=== PATIENT | female | born 1950 | race Caucasian/White ===

== ENCOUNTER 2016-07-24 12:50 | Emergency (ER) | payer MEDICARE, MEDICAID ==
[2016-07-24] MEDS ORDERED: ALBUTEROL SULFATE 2.5 MG/3 ML VIAL.NEB IH ONE (13:20)
[2016-07-24] MEDS ORDERED: ALBUTEROL SULFATE 2.5 MG/0.5 ML VIAL.NEB IH ONE (13:22)
--- NOTE | 2016-07-24 13:22 | ERNOTE ---
Dyspnea - General Presenting Symptoms: shortness of breath Time Seen by Provider: 07/24/16 13:07 Source: patient Exam Limitations: no limitations - Immun/Allergies/Home Medications Immunizations: IMMUNIZATION HX Immunizations Up to Date Yes History of Influenza Vaccine Yes Hx Pneumococcal Vaccination Yes Allergies/Adverse Reactions: Allergies codeine [Codeine] Adverse Reaction (Mild, Verified 07/24/16 13:02) SHAKY Home Medications: HOME MEDICATIONS Levothyroxine Sodium [Tirosint] 100 mcg PO DAILY 07/12/15 [Last Taken Unknown] Zolpidem Tartrate [Ambien] 10 mg PO HS 11/28/15 [Last Taken Unknown] Doxycycline Monohydrate 100 mg PO BID #20 tablet 07/24/16 [Last Taken Unknown] predniSONE [Prednisone] 3 tab PO DAILY #18 tab 07/24/16 [Last Taken Unknown] - History of Present Illness Narrative: Patient has a history of COPD (no home O2), she get exacerbations about 1-2 times per year. Three days ago she started to get more short of breath again, slightly runny nose, cough with white phlegm Date (Duration): 07/21/16 Initiating event: Denies: upper resp illness, out of meds, allergy to environment, exposure to smoke Frequency of episodes: Reports: occassional episodes Modifying Factors - (Improves): Reports: albuterol, rest Modifying Factors (Worsens): Reports: activity Review of Systems - Review of Systems Constitutional: Absent: recent illness, fever ENT: Present: nasal drainage. Absent: ear pain, sore throat Respiratory: Present: See HPI, shortness of breath, cough Cardiology: Absent: chest pain Gastrointestinal/Abdominal: Absent: nausea, vomiting, abdominal pain Genitourinary: Present: no symptoms reported Musculoskeletal: Absent: muscle pain Skin: Absent: rash Neurological: Absent: headache - Patient's Past Medical History Patient History - Medical: Cataracts, Hypothyroidism, Other Patient History - Cardiac/Respiratory: COPD Patient History - Cancer: No Hx of Cancer Patient History - Surgical Procedures: Appendectomy, Cataracts, Cholecystectomy , Colonoscopy, Hysterectomy, T & A, Other Patient History - Other: None LMP (females 10-50): Menopausal - Family History Father Family History - Medical: Family History - Cardiac/Respiratory: Myocardial Infarction Mother Family History - Medical: , Diabetes Type 2 Family History - Cardiac/Respiratory: Coronary Heart Disease, Hypertension, Myocardial Infarction Sister Family History - Medical: Diabetes Type 2 Family History - Cardiac/Respiratory: Coronary Heart Disease - Social History Living Situations: home Abuse History: No History of abuse Psych History: Hx of Depression Does anyone smoke in the home?: No Smoking Status: Never smoker Alcohol Use: none Drug Use: none - Immunizations Immunizations Up to Date: Yes Hx Pneumococcal Vaccination: Yes History of Influenza Vaccine: Yes Physical Exam - Physical Exam General Appearance: Present: wd/wn, alert, mild distress, anxious Eye Exam: Normal inspection: bilateral Ears, Nose, Throat: Present: normal ENT inspection, normal pharynx Respiratory: Present: decreased breath sounds, expiration (prolonged), wheezing - few Cardiovascular/Chest: Present: regular rate, rhythm, no murmur Gastrointestinal/Abdominal: Present: nontender, nondistended, soft Extremity Exam: Present: no edema Neurological Exam: Present: alert, oriented, normal mood/affect Skin Exam: Present: normal color, warm/dry ED Progress - Results and Orders Patient's Lab Results:: I have reviewed the patient's lab results. - Vital Signs Patient's Vital Signs:: I have reviewed the patient's vital signs. Vital Signs: Vital Signs 07/24/16 12:57 Pulse Rate 117 H Respiratory 31 H Rate Blood Pressure 161/91 O2 Sat by Pulse 97 Oximetry - X-Ray X-Ray #1 X-Ray: chest - chronic, no acute changes Interpretation: Reviewed by me - Progress/Reassessment Chief Complaint: Dyspnea Progress Note-Subjective: 07/24/16 14:45 feeling a little better after neb treatment discussed results, no signs of pneumonia, no admission criteria, will treat with steroids and antibiotics 07/24/16 14:58 discussed results again, patient states that she is ready to go home Departure Clinical Impression: COPD with acute exacerbation - Departure Disposition: Home self-care Condition: Fair Instructions: Chronic Obstructive Pulmonary Disease Exacerbation, [id number] Additional Instructions: call your doctor for follow up Referrals: Domo Graves MD [Primary Care Provider] - Prescriptions: Doxycycline Monohydrate 100 mg PO BID #20 tablet predniSONE [Prednisone] 3 tab PO DAILY #18 tab
--- OUTSIDE RECORDS SUMMARY | 2016-07-24 13:35 | XMS REPORT | Continuity of Care Document ---
:1950 Author Organization [facility] ([facility]) Address [address] [place] [address] Phone [phone] Care Team Providers Name Role Phone David Sales Primary Care Provider [phone] Source Comments This disclosure is being made pursuant to the Care Everywhere program, applicable federal and state laws, and may not contain all informaitonavailable regarding this patient.[facility] ([facility]) Active Allergies and Adverse Reactions Not on File Current Medications Not on file Active Problems Problem Noted Date Cough 05/10/2007 Empyema without mention of fistula 04/01/2006 Social History Tobacco Use Types Packs/Day Years Used Date Never Assessed Last Filed Vital Signs Vital Sign Reading Time Taken Blood Pressure 143/78 05/10/2007 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 Pulse 83 05/10/2007 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 Temperature 36 C (96.8 F) 05/10/2007 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 Respiratory Rate 20 05/10/2007 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 Height 1.58 m (5' 2.2") 08/26/2003 11:08 AM CDT Weight 58.8 kg (129 lb 10.1 oz) 04/10/2006 1:26 PM GROUND INSTRUCTOR BASIC Body Mass Index 23.55 04/10/2006 1:26 PM GROUND INSTRUCTOR [employer]IC Oxygen Saturation - - Plan of Care Health Maintenance Due Date Last Done Comments HCV Screening 1950 Hepatitis B Vaccine (1 of 3 - Primary Series) 1950 Tdap Vaccine 1962 Lipid Disorder Screening 1969 Td Vaccine 1969 Cervical Cancer Screening 1981 Mammogram 1991 Colonoscopy 04/24/2001 Zoster Vaccine 2011 Influenza Vaccine: Seasonal (#1) 12/04/2015 Osteoporosis Screening (DXA Bone Density) 2016 Pneumococcal Vaccine (1 of 2 - PCV13) 2016 Results from Last 3 Months Not on file
[2016-07-24 13:56] LABS: Hematocrit 47.1 % (37.0-47.0); Hemoglobin 14.9 gm/dL (12.5-16.0); Mean Cell Volume 89.5 fl (78-100); Mean Corpuscular Hemoglobin 28.3 pg (27-31); Mean Corpuscular Hgb Conc 31.6 g/dl (32-36); Mean Platelet Volume 10.6 fl (6.0-9.5); Platelet Count 255 K/mm3 (150-450); Red Blood Count 5.26 M/mm3 (4.2-5.4); Red Cell Distribution Width 13.6 % (11.5-14.0)
[2016-07-24 14:09] LABS: Anion Gap 15.3 mmol/L (6.8-13.8); BUN/Creatinine Ratio 19.5 (9.0-21.6); Bilirubin, Total 0.6 mg/dL (0.0-1.1); Calcium * 9.3 mg/dL (7.9-10.9); Carbon Dioxide 28.7 mmol/L (24-32.6); Total Protein 7.3 gm/dL (6.2-8.2)
[2016-07-24 14:28] VITALS: BP 133/85
[2016-07-24] MEDS ORDERED: predniSONE 20 MG TABLET PO ONE (14:41)
[2016-07-24] MEDS ORDERED: DOXYCYCLINE HYCLATE 100 MG TABLET PO ONE (14:43)
[2016-07-24] MEDS ORDERED: predniSONE 20 MG TABLET ONE (14:45)
[2016-07-24] MEDS ORDERED: DOXYCYCLINE HYCLATE 100 MG TABLET ONE (14:45)
== END 2016-07-24 15:05 | disposition home or self-care (01) ==
LOC: ER 12:50
DX: J44.1 Chronic obstructive pulmonary disease with (acute) exacerbation (principal); E03.9 Hypothyroidism, unspecified

== ENCOUNTER 2016-09-16 18:32 | Emergency (ER) | payer MEDICARE, MEDICAID ==
[2016-09-16 19:54] VITALS: BP 151/79
[2016-09-16] MEDS ORDERED: ALBUTEROL SULFATE/IPRATROPIUM 3 ML NEBU IH ONE ×2 (20:36→21:15)
[2016-09-16 20:40] LABS: Hematocrit 46.4 % (37.0-47.0); Mean Cell Volume 86.6 fl (78-100); Mean Corpuscular Hgb Conc 32.3 g/dl (32-36); Mean Platelet Volume 10.8 fl (6.0-9.5); Neutrophil # 7.4 K/mm3 (1.3-6.0); Neutrophil % 72.3 % (42-75.0); Platelet Count 262 K/mm3 (150-450); Red Blood Count 5.36 M/mm3 (4.2-5.4); Red Cell Distribution Width 12.7 % (11.5-14.0); White Blood Count 10.3 K/mm3 (4.0-10.5)
[2016-09-16 20:54] LABS: Albumin * 3.3 gm/dl (3.4-5.0); Anion Gap 11.9 mmol/L (6.8-13.8); BUN/Creatinine Ratio 26.5 (9.0-21.6); Bilirubin, Total 0.5 mg/dL (0.0-1.1); Ca. Corrected For Albumin 9.4 mg/dL (8.4-10.2); Calcium * 9.2 mg/dL (7.9-10.9); Carbon Dioxide 31.2 mmol/L (24-32.6); Potassium 4.1 mmol/L (3.4-4.6); Total Protein 6.6 gm/dL (6.2-8.2)
--- OUTSIDE RECORDS SUMMARY | 2016-09-16 20:57 | XMS REPORT | Continuity of Care Document ---
:1950 Author Organization [facility] ([facility]) Address [address] [place] [address] Phone [phone] Care Team Providers Name Role Phone David Sales Primary Care Provider [phone] Source Comments This disclosure is being made pursuant to the Care Everywhere program, applicable federal and state laws, and may not contain all informaitonavailable regarding this patient.[facility] ([facility]) Active Allergies and Adverse Reactions Not on File Current Medications Not on file Active Problems Problem Noted Date Cough 05/10/2007 Empyema without mention of fistula 04/01/2006 Social History Tobacco Use Types Packs/Day Years Used Date Never Assessed Last Filed Vital Signs Vital Sign Reading Time Taken Blood Pressure 143/78 05/10/2007 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
--- NOTE | 2016-09-16 21:00 | ERNOTE ---
Lower Extremity HPI - Narrative Date of Service: 09/16/16 - General Lower Extremities Pain: knee: bilateral Time Seen by Provider: 09/16/16 20:26 Source: patient Exam Limitations: no limitations - Immun/Allergies/Home Medications Immunizations: IMMUNIZATION HX Immunizations Up to Date Yes History of Influenza Vaccine Yes Hx Pneumococcal Vaccination Yes Allergies/Adverse Reactions: Allergies Allergy/AdvReac Type Severity Reaction Status Date / Time codeine [Codeine] AdvReac Mild SHAKY Verified 07/24/16 13:02 Home Medications: HOME MEDICATIONS Levothyroxine Sodium [Tirosint] 100 mcg PO DAILY 07/12/15 [Last Taken Unknown] Zolpidem Tartrate [Ambien] 10 mg PO HS 11/28/15 [Last Taken Unknown] predniSONE [Prednisone] 3 tab PO DAILY #18 tab 07/24/16 [Last Taken Unknown] Albuterol Sulfate [Albuterol Sulfate 2.5 MG/3 ML] 2.5 mg IH Q4H 09/16/16 [Last Taken Unknown] Albuterol Sulfate [Proventil Hfa] 6.7 gm IH QAM 09/16/16 [Last Taken Unknown] predniSONE [Prednisone] 3 tab PO DAILY #9 tab 09/16/16 [Last Taken Unknown] - History of Present Illness Narrative: Pt. comes in with c/o B knee pain, SOB, increase cough, and B leg cramping since she received knee injections from Dr Shanita Sandy a week ago. Pt. denies any fevers, NVD, but has had chills. Pt. denies any prehospital treatment or alleviating factors but does state that movement and ambulation exacerbate the symptoms. Review of Systems - Review of Systems Constitutional: Present: chills, weakness, fatigue, malaise. Absent: fever EYE: Present: no symptoms reported ENT: Present: no symptoms reported Respiratory: Present: shortness of breath, cough, wheezing Cardiology: Present: no symptoms reported. Absent: chest pain, palpitations, edema Gastrointestinal/Abdominal: Present: no symptoms reported. Absent: nausea, vomiting, diarrhea Genitourinary: Present: no symptoms reported Musculoskeletal: Present: muscle pain - B legs from knees to toes anterior, joint pain - B knee. Absent: back pain Skin: Present: no symptoms reported. Absent: rash, change in hair/nails Neurological: Present: no symptoms reported. Absent: headache, dizziness/light- headedness, numbness, tingling All Other Systems: All systems neg except as marked - Patient's Past Medical History Patient History - Medical: Cataracts, Hypothyroidism Patient History - Cardiac/Respiratory: COPD Patient History - Cancer: No Hx of Cancer Patient History - Surgical Procedures: Appendectomy, Cataracts, Cholecystectomy , Colonoscopy, Hysterectomy, T & A, Other Patient History - Other: None - Family History Father Family History - Medical: Family History - Cardiac/Respiratory: Myocardial Infarction Mother Family History - Medical: , Diabetes Type 2 Family History - Cardiac/Respiratory: Coronary Heart Disease, Hypertension, Myocardial Infarction Sister Family History - Medical: Diabetes Type 2 Family History - Cardiac/Respiratory: Coronary Heart Disease - Social History Living Situations: home Abuse History: No History of abuse Psych History: Hx of Depression Does anyone smoke in the home?: No Smoking Status: Current some day smoker Have you smoked in the past 12 months: Yes Do you dip or chew tobacco: No Alcohol Use: none Drug Use: none - Immunizations Immunizations Up to Date: Yes Hx Pneumococcal Vaccination: Yes History of Influenza Vaccine: Yes Physical Exam - Physical Exam General Appearance: Present: wd/wn, alert, no apparent distress Eye Exam: Normal inspection: bilateral, PERRL: bilateral, EOMI: bilateral Ears, Nose, Throat: Present: normal ENT inspection, normal pharynx Neck: Present: normal inspection, nontender. Absent: lymphadenopathy (R), lymphadenopathy (L) Respiratory: Present: no respiratory distress, no accessory muscle use, decreased breath sounds, wheezing Cardiovascular/Chest: Present: regular rate, rhythm, no murmur, normal peripheral pulses Gastrointestinal/Abdominal: Present: normal bowel sounds, nontender, nondistended, soft, no organomegaly Back Exam: Present: normal inspection Extremity Exam: Present: joint swelling, other - B calf pain. Absent: calf tenderness Neurological Exam: Present: alert, oriented, normal mood/affect, no motor/ sensory deficits Skin Exam: Present: normal color, warm/dry. Absent: pallor, skin rash ED Progress - Date and Time Seen: Date and Time: 09/16/16 22:26 Do not feel that pt. is having acute COPD exacerbation so will treat this with prednisone which will also treat the acute inflammation from knee arthritis - Results and Orders Patient's Lab Results:: I have reviewed the patient's lab results. - Vital Signs Patient's Vital Signs:: I have reviewed the patient's vital signs. Vital Signs: Vital Signs 09/16/16 09/16/16 18:58 19:53 Pulse Rate 131 H Respiratory 20 22 H Rate Blood Pressure 151/79 O2 Sat by Pulse 95 Oximetry - X-Ray X-Ray #1 X-Ray: chest Interpretation: Interp. by me X-ray Comments: RLL cystic cavity relatively unchanged from previous chronic RLL scaring and other changes noted. X-Ray #2 X-Ray: knee Interpretation: Interp. by me X-ray Comments: L knee with chronic arthritic changes no acute X-Ray #3 X-Ray: knee Interpretation: Interp. by me X-ray Comments: R knee with chronic arthritic changes and possible attenuation differences noted on previous xray as well, no acute - Progress/Reassessment Chief Complaint: Lower Extremity Pain/ Injury Progress:: Unchanged Departure Clinical Impression: COPD with acute exacerbation Osteoarthritis Qualifiers: Osteoarthritis location: knee Osteoarthritis type: primary Laterality: bilateral Qualified Code(s): M17.0 - Bilateral primary osteoarthritis of knee - Departure Disposition: Home self-care Condition: Good Instructions: Chronic Obstructive Pulmonary Disease, [id number], Osteoarthritis Additional Instructions: Please follow up with primary provider in 2-3 days. Referrals: Domo Graves MD [Primary Care Provider] - Prescriptions: predniSONE [Prednisone] 3 tab PO DAILY #9 tab
[2016-09-16 21:16] LABS: Troponin I Less than 0.017 ng/ml (0.00-0.10)
[2016-09-16 21:19] LABS: BNP * 86 pg/mL (5-325)
== END 2016-09-16 22:31 | disposition home or self-care (01) ==
LOC: ER 18:32
DX: J44.1 Chronic obstructive pulmonary disease with (acute) exacerbation (principal); Z72.0 Tobacco use; M17.0 Bilateral primary osteoarthritis of knee; E03.9 Hypothyroidism, unspecified

== ENCOUNTER 2016-12-12 17:33 | Emergency (ER) | payer MEDICAID, MEDICARE, OTHER ==
--- NOTE | 2016-12-12 18:04 | ERNOTE ---
Lower Extremity HPI - General Lower Extremities Pain: leg: bilateral Time Seen by Provider: 12/12/16 17:42 Source: patient Exam Limitations: no limitations - Immun/Allergies/Home Medications Immunizations: IMMUNIZATION HX Immunizations Up to Date Yes History of Influenza Vaccine Yes Hx Pneumococcal Vaccination Yes Allergies/Adverse Reactions: Allergies Allergy/AdvReac Type Severity Reaction Status Date / Time codeine [Codeine] AdvReac Mild SHAKY Verified 12/12/16 17:40 Home Medications: HOME MEDICATIONS Levothyroxine Sodium [Tirosint] 100 mcg PO DAILY 07/12/15 [Last Taken Unknown] Zolpidem Tartrate [Ambien] 10 mg PO HS 11/28/15 [Last Taken Unknown] Albuterol Sulfate [Albuterol Sulfate 2.5 MG/3 ML] 2.5 mg IH Q4H 09/16/16 [Last Taken Unknown] Albuterol Sulfate [Proventil Hfa] 6.7 gm IH QAM 09/16/16 [Last Taken Unknown] - History of Present Illness Narrative: Patient is here for bilateral leg pain that she has had for many months. She has seen her doctor for it and received injections and pain medications with little relieve. She would like answers, denies any injuries, was seen in the ER in September2016, had Xrays and labs done which showed no significant abnormality. She has not seen any specialist, just her family doctor. The pain is in both legs mainly from the knee down at times extending up the thigh, no sensory deficit, no muscle weakness Review of Systems - Review of Systems Constitutional: Absent: recent illness, fever, malaise ENT: Absent: nose congestion, sore throat Respiratory: Absent: shortness of breath Cardiology: Absent: chest pain Gastrointestinal/Abdominal: Absent: nausea, vomiting, abdominal pain Genitourinary: Present: no symptoms reported Musculoskeletal: Present: See HPI. Absent: back pain, neck pain Skin: Absent: rash Neurological: Present: See HPI. Absent: weakness, numbness - Patient's Past Medical History Patient History - Medical: Cataracts, Hypothyroidism Patient History - Cardiac/Respiratory: COPD Patient History - Cancer: No Hx of Cancer Patient History - Surgical Procedures: Appendectomy, Cataracts, Cholecystectomy , Colonoscopy, Hysterectomy, T & A, Other Patient History - Other: None - Family History Father Family History - Medical: Family History - Cardiac/Respiratory: Myocardial Infarction Mother Family History - Medical: , Diabetes Type 2 Family History - Cardiac/Respiratory: Coronary Heart Disease, Hypertension, Myocardial Infarction Sister Family History - Medical: Diabetes Type 2 Family History - Cardiac/Respiratory: Coronary Heart Disease - Social History Living Situations: home Abuse History: No History of abuse Psych History: Hx of Depression Does anyone smoke in the home?: No Alcohol Use: none Drug Use: none - Immunizations Immunizations Up to Date: Yes Hx Pneumococcal Vaccination: Yes History of Influenza Vaccine: Yes Physical Exam - Physical Exam General Appearance: Present: wd/wn, alert, no apparent distress Respiratory: Present: no respiratory distress, no accessory muscle use, lungs clear, decreased breath sounds Cardiovascular/Chest: Present: regular rate, rhythm, no murmur Back Exam: Present: normal inspection, no CVA tenderness, no vertebral tenderness Extremity Exam: Present: normal inspection, non-tender, normal range of motion, no edema Neurological Exam: Present: alert, oriented, normal mood/affect, no motor/ sensory deficits DTR: N=norm/NB=norm/brisk/A=abs/DD=dull/dimin/HC=hyperactive: Knee (R): Normal/ Brisk, Knee (L): Normal/Brisk, Ankle (R): Normal, Ankle (L): Normal Skin Exam: Present: normal color, warm/dry ED Progress - Vital Signs Patient's Vital Signs:: I have reviewed the patient's vital signs. Vital Signs: Vital Signs 12/12/16 17:37 Temperature 36.7 C Pulse Rate 95 Respiratory 12 Rate Blood Pressure 153/85 O2 Sat by Pulse 100 Oximetry - Progress/Reassessment Chief Complaint: Lower Extremity Pain/ Injury Progress Note-Subjective: 12/12/16 18:02 discussed possibly trying neurontin, patient's daughter had a reaction to it and is strongly advising her mother not to take it, discussed further work up, possibly seeing neurology Departure Clinical Impression: Leg pain, bilateral - Departure Disposition: Home self-care Condition: Good Additional Instructions: the pain in your legs might be related to nerve damage in your legs and you might need further testing, call the neurology office tomorrow, if you need a referral call you doctor for a referral Referrals: Domo Graves MD [Primary Care Provider] - Barbra Mary MD [Staff Physician] -
[2016-12-13 16:32] VITALS: BP 153/85
== END 2016-12-12 18:07 | disposition home or self-care (01) ==
LOC: ER 17:33
DX: M79.605 Pain in left leg (principal); M79.604 Pain in right leg; E03.9 Hypothyroidism, unspecified; J44.9 Chronic obstructive pulmonary disease, unspecified

== ENCOUNTER 2017-04-14 18:52 | Inpatient (IN) | payer MEDICARE, MEDICAID ==
[2017-04-14] MEDS ORDERED: ALBUTEROL SULFATE 2.5 MG/0.5 ML VIAL.NEB IH ONE ×3 (19:10→19:12)
[2017-04-14] MEDS ORDERED: METHYLPREDNISOLONE SOD SUCC/PF 125 MG/2 ML VIAL IV ONE (19:12)
--- NOTE | 2017-04-14 19:21 | ERNOTE ---
Dyspnea - General Presenting Symptoms: shortness of breath Time Seen by Provider: 04/14/17 19:06 Source: patient Exam Limitations: no limitations - Immun/Allergies/Home Medications Immunizations: IMMUNIZATION HX Immunizations Up to Date Yes History of Influenza Vaccine No Hx Pneumococcal Vaccination Yes Allergies/Adverse Reactions: Allergies codeine [Codeine] Adverse Reaction (Mild, Verified 04/14/17 19:12) SHAKY Home Medications: HOME MEDICATIONS Levothyroxine Sodium [Tirosint] 175 mcg PO DAILY 07/12/15 [Last Taken Unknown] Zolpidem Tartrate [Ambien] 10 mg PO HS 11/28/15 [Last Taken Unknown] Albuterol Sulfate [Proventil Hfa] 6.7 gm IH QAM 09/16/16 [Last Taken Unknown] Albuterol Sulfate/Ipratropium [Duoneb 2.5-0.5MG/3ML Soln] 3 ml IH QID 04/14/17 [ Last Taken Unknown] - History of Present Illness Narrative: Patient has a history or COPD and pneumonia, is not on home O2. Over the last three days she has had increasing shortness of breath and productive cough. She has been staying at her daughter's house and has been exposed to smoke there. She forgot to take her nebulizer, last breathing treatment two days ago. She denies fever, no chest pain Treatment COURIER: none Initiating event: Reports: exposure to smoke, other Frequency of episodes: Reports: occassional episodes Modifying Factors - (Improves): Reports: nothing Modifying Factors (Worsens): Reports: activity Associated Symptoms-Dyspnea: Reports: cough, wheezing. Denies: fever/chills, sweating, chest pain/discomfort, dizziness, lightheadedness Prior Treatment: Reports: previous episodes. Denies: recently seen, currently on antibiotics Review of Systems - Review of Systems Constitutional: Absent: recent illness, fever ENT: Absent: nose congestion, sore throat Respiratory: Present: shortness of breath, cough Cardiology: Absent: chest pain Gastrointestinal/Abdominal: Absent: nausea, abdominal pain Genitourinary: Present: no symptoms reported Musculoskeletal: Present: no symptoms reported Skin: Absent: rash Neurological: Absent: headache - Patient's Past Medical History Patient History - Medical: Cataracts, Hypothyroidism Patient History - Cardiac/Respiratory: COPD Patient History - Cancer: No Hx of Cancer Patient History - Surgical Procedures: Appendectomy, Cataracts, Cholecystectomy , Colonoscopy, Hysterectomy, T & A, Other Patient History - Other: None - Family History Father Family History - Medical: Family History - Cardiac/Respiratory: Myocardial Infarction Mother Family History - Medical: , Diabetes Type 2 Family History - Cardiac/Respiratory: Coronary Heart Disease, Hypertension, Myocardial Infarction Sister Family History - Medical: Diabetes Type 2 Family History - Cardiac/Respiratory: Coronary Heart Disease - Social History Living Situations: alone Abuse History: No History of abuse Psych History: Hx of Depression Smoking Status: Former smoker Have you smoked in the past 12 months: No Do you dip or chew tobacco: No Alcohol Use: none Drug Use: none - Immunizations Immunizations Up to Date: Yes Hx Pneumococcal Vaccination: Yes History of Influenza Vaccine: No Physical Exam - Physical Exam General Appearance: Present: wd/wn, alert, moderate distress Head Exam: Present: normal inspection Eye Exam: Normal inspection: bilateral, PERRL: bilateral Ears, Nose, Throat: Present: normal pharynx Respiratory: Present: decreased breath sounds, wheezing Cardiovascular/Chest: Present: tachycardia Gastrointestinal/Abdominal: Present: nontender, nondistended, soft Extremity Exam: Present: no edema Neurological Exam: Present: alert, oriented, normal mood/affect Skin Exam: Present: normal color, warm/dry ED Progress - Results and Orders Patient's Lab Results:: I have reviewed the patient's lab results. - Vital Signs Patient's Vital Signs:: I have reviewed the patient's vital signs. Vital Signs: Vital Signs 04/14/17 18:59 Temperature 37.4 C Pulse Rate 140 H Respiratory 38 H Rate Blood Pressure 172/82 O2 Sat by Pulse 80 L Oximetry - EKG EKG: NSR - sinustachycardia, nonspecific ST T wave changes EKG read: Interp. by me - X-Ray X-Ray #1 X-Ray: chest - hyperinflation, right sided emphyema increased fluid level compared to march 2017 Interpretation: Interp. by me - Progress/Reassessment Chief Complaint: Dyspnea Progress Note-Subjective: 04/14/17 19:30 patient seems more comfortable after breathing treatment, decreased RR patient states that she doesn't feel much better yet 04/14/17 20:33 discussed test results with patient and family, offered admission, patient agreed 04/14/17 20:38 discussed with Jeyson (NRP) accepted patient for admission to the hospital Departure Clinical Impression: COPD with acute exacerbation Lung abscess Qualifiers: Pulmonary abscess pneumonia presence: without pneumonia Laterality: right Lung location: lower lobe of lung Qualified Code(s): J85.2 - Abscess of lung without pneumonia - Departure Disposition: [facility] Condition: Stable
[2017-04-14] MEDS ORDERED: MORPHINE SULFATE 2 MG/ML DISP.SYRIN ONE (19:26)
[2017-04-14] MEDS ORDERED: MORPHINE SULFATE 2 MG/ML DISP.SYRIN IV ONE (19:26)
[2017-04-14] MEDS ORDERED: METHYLPREDNISOLONE SOD SUCC/PF 125 MG/2 ML VIAL ONE (19:27)
[2017-04-14 19:31] LABS: Hematocrit 43.3 % (37.0-47.0); Hemoglobin 14.3 gm/dL (12.5-16.0); Mean Cell Volume 88.2 fl (78-100); Mean Corpuscular Hemoglobin 29.1 pg (27-31); Mean Platelet Volume 10.8 fl (6.0-9.5); Platelet Count 427 K/mm3 (150-450); Red Blood Count 4.91 M/mm3 (4.2-5.4); Red Cell Distribution Width 13.1 % (11.5-14.0); White Blood Count 11.4 K/mm3 (4.0-10.5)
[2017-04-14 19:46] LABS: Total Cells Counted 100
[2017-04-14 19:57] LABS: ALT 66 U/L (19-67); AST 42 U/L (0-48); Alkaline Phosphatase * 144 U/L (50-170); Anion Gap 14.6 mmol/L (6.8-13.8); BNP * 302 pg/mL (5-325); BUN/Creatinine Ratio 26.5 (9.0-21.6); Bilirubin, Total 0.5 mg/dL (0.0-1.1); Blood Urea Nitrogen 26 mg/dL (3-23); Ca. Corrected For Albumin 9.7 mg/dL (8.4-10.2); Calcium * 9.2 mg/dL (7.9-10.9); Carbon Dioxide 28.3 mmol/L (24-32.6); Chloride 99 mmol/L (97-106); Glucose * 147 mg/dL (70-110); Potassium 3.9 mmol/L (3.4-4.6); Sodium 138 mmol/L (132-142); Total Protein 7.8 gm/dL (6.2-8.2); Troponin I Less than 0.017 ng/ml (0.00-0.10)
[2017-04-14 20:20] LABS: Band 6 % (0-2.0); Immature Granulocyte 1 (0-1); Lymphocyte 6 % (20-51); Monocyte 18 % (0-9); Neutrophil 69 % (42-75); Neutrophil # 7.9 K/mm3 (1.3-6.0)
[2017-04-14 20:22] LABS: Platelet Estimate Normal (NORMAL); RBC Morphology Normal (NORMAL)
[2017-04-14] MEDS ORDERED: LEVOFLOXACIN IN DEXTROSE 5 % 750 MG/150 ML BAG IV ONE (20:45)
[2017-04-14] MEDS ORDERED: CLINDAMYCIN HCL 150 MG CAPSULE PO SCH (21:00)
[2017-04-14] MEDS ORDERED: ALBUTEROL SULFATE 2.5 MG/0.5 ML VIAL.NEB IH PRN (21:00)
[2017-04-14] MEDS: LEVOFLOXACIN IN DEXTROSE 5 % 750 MG/150 ML BAG IV SCH (21:11)
[2017-04-14] MEDS ORDERED: FLU VACC QS2017-18(6MOS UP)/PF 60 MCG/0.5 ML SYRINGE IM ONE (21:30)
[2017-04-14] MEDS ORDERED: ALBUTEROL SULFATE/IPRATROPIUM 3 ML NEBU IH ONE (21:47)
--- NOTE | 2017-04-14 22:08 | HP ---
Chief Complaint - Chief Complaint Date of Service: 04/14/17 Time of Service: 22:07 History of Present Illness: 66 years old female adm to the hospital with reports of shortness of breath and dizziness. pt stated for past 3 days she has a non-productive cough, chills and dizziness. she denies fever, chest pain, palpitation or wheezing. She had used her nebulizer treatments without getting any relief. She noticed her s/s while she was visiting her daughter and was exposed to pets and second hand smoking.She was last seen 6 months ago by template maker in [place], at the time she had no lung abscess. She have had recurrent lung abscess over the years. In ER CXR: Unchanged mildly thick walled bulla within the right lung base , emphysema. In ER lactic acid 2.0, WBC 11.4, Initiated IV antbx Levaquin and clindamycin, Solu-medrol and supplemented oxygen. plan of care discussed with pt , she verbalized understanding and agree. - Patient's Past Medical History Patient History - Medical: Cataracts, Hypothyroidism, Other - insomnia, crohns disease, Patient History - Cardiac/Respiratory: COPD, CVA/Stroke, Pneumonia, Other - recurrent Right lung abscess Patient History - Cancer: No Hx of Cancer Patient History - Surgical Procedures: Appendectomy, Cataracts, Cholecystectomy , Colonoscopy, Hysterectomy, T & A Patient History - Other: None LMP (females 10-50): Menopausal - Family History Father Family History - Medical: Family History - Cardiac/Respiratory: Coronary Heart Disease, Myocardial Infarction Family History - Cancer: No pertinent family hx Mother Family History - Medical: Family History - Cardiac/Respiratory: Coronary Heart Disease, Hypertension, Myocardial Infarction Family History - Cancer: No pertinent family hx Sister Family History - Medical: No pertinent hx Family History - Cardiac/Respiratory: Coronary Heart Disease Family History - Cancer: No pertinent family hx - Social History Living Situations: alone Abuse History: No History of abuse Psych History: Hx of Depression Smoking Status: Former smoker Have you smoked in the past 12 months: No Do you dip or chew tobacco: No Alcohol Use: none Drug Use: none - Immunizations Immunizations Up to Date: Yes Hx Pneumococcal Vaccination: Yes History of Influenza Vaccine: No Review Of Systems (GEN) - Review of Systems Generalized/Overall Review: Present: No Symptoms Reported EENTM: Present: No Symptoms Reported Respiratory: Present: Cough, Shortness of Breath Cardiac: Present: No Symptoms Reported Abdominal: Present: No Symptoms Reported Genitourinary: Present: No Symptoms Reported Musculoskeletal: Present: Joint Pain - Anival knees Neurological: Present: Parasthesia, Weakness Skin: Present: No Symptoms Reported Endocrine: Present: No Symptoms Reported Immunizations: IMMUNIZATION HX Immunizations Up to Date Yes History of Influenza Vaccine No Hx Pneumococcal Vaccination Yes Allergies/Adverse Reactions: Allergies Allergy/AdvReac Type Severity Reaction Status Date / Time codeine [Codeine] AdvReac Mild SHAKY Verified 04/14/17 19:12 Home Medications: HOME MEDICATIONS Levothyroxine Sodium [Tirosint] 175 mcg PO DAILY 07/12/15 [Last Taken Unknown] Zolpidem Tartrate [Ambien] 10 mg PO HS 11/28/15 [Last Taken Unknown] Albuterol Sulfate [Proventil Hfa] 6.7 gm IH QAM 09/16/16 [Last Taken Unknown] Albuterol Sulfate/Ipratropium [Duoneb 2.5-0.5MG/3ML Soln] 3 ml IH QID 04/14/17 [ Last Taken Unknown] Exam - Exam Vital Signs: Vital Signs - Last Taken Temp 36.7 C 04/14/17 21:24 Pulse 114 H 04/14/17 21:24 Resp 26 H 04/14/17 21:24 BP 147/50 04/14/17 21:24 Pulse Ox 90 04/14/17 21:24 Constitutional: Present: Alert, Oriented x3, Cooperative, Mild distress, Middle aged ENT Exam: Present: hearing grossly normal Eye Exam: bilateral eye: normal inspection Neck: Present: full range of motion Back Exam: Present: normal inspection, no CVA tenderness Breasts: Present: Exam deferred Respiratory: Present: chest non-tender, no accessory muscle use, decreased breath sounds, rhonchi, wheezing Cardiovascular/Chest: Present: normal peripheral pulses, no chest tenderness, no edema, tachycardia Peripheral Pulses: dorsalis-pedis (R): 3+, dorsalis-pedis (L): 3+ Abdomen: Present: Normal bowel sounds, soft, nontender, nondistended, no rebound tenderness Extremity: Present: normal range of motion, normal inspection, no pedal edema, no calf tenderness, normal capillary refill Skin Exam: Present: warm/dry Neurologic: Present: alert, oriented x 3 Appearance: Present: appropriate appearance, appropriate insight Eye contact: Present: cooperative, good eye contact Thoughts: Present: normal thought pattern, no apparent hallucination Diagnostic Studies: Laboratory Results WBC 11.4 K/mm3 (4.0-10.5) H 04/14/17 19:25 RBC 4.91 M/mm3 (4.2-5.4) 04/14/17 19:25 Hgb 14.3 gm/dL (12.5-16.0) 04/14/17 19:25 Hct 43.3 % (37.0-47.0) 04/14/17 19:25 MCV 88.2 fl (78-100) 04/14/17 19:25 MCH 29.1 pg (27-31) 04/14/17 19:25 MCHC 33.0 g/dl (32-36) 04/14/17 19:25 RDW 13.1 % (11.5-14.0) 04/14/17 19:25 Plt Count 427 K/mm3 (150-450) 04/14/17 19:25 MPV 10.8 fl (6.0-9.5) H 04/14/17 19:25 Neutrophils % (Manual) 69 % (42-75) 04/14/17 19:25 Band Neuts % (Manual) 6 % (0-2.0) H 04/14/17 19:25 Lymphocytes % (Manual) 6 % (20-51) L 04/14/17 19:25 Monocytes % (Manual) 18 % (0-9) H 04/14/17 19:25 Immature Granulocytes 1 (0-1) 04/14/17 19:25 Neutrophils # (Manual) 7.9 K/mm3 (1.3-6.0) H 04/14/17 19:25 Lymphocytes # (Manual) 0.7 k/mm3 (1.5-3.5) L 04/14/17 19:25 Monocytes # (Manual) 2.1 k/mm3 (0.0-1.0) H 04/14/17 19:25 Toxic Vacuolation 3+ 04/14/17 19:25 Platelet Estimate Normal (NORMAL) 04/14/17 19:25 RBC Morphology Normal (NORMAL) 04/14/17 19:25 Sodium 138 mmol/L (132-142) 04/14/17 19:25 Plasma Sodium 139 mmol/L (130-142) 04/14/17 19:25 Potassium 3.9 mmol/L (3.4-4.6) 04/14/17 19:25 Chloride 99 mmol/L (97-106) 04/14/17 19:25 Carbon Dioxide 28.3 mmol/L (24-32.6) 04/14/17 19:25 Anion Gap 14.6 mmol/L (6.8-13.8) H 04/14/17 19:25 BUN 26 mg/dL (3-23) H 04/14/17 19:25 Creatinine 0.98 mg/dL (0.4-1.4) 04/14/17 19:25 Est GFR (Non-Af Amer) 61 mL/min (60-130) 04/14/17 19:25 BUN/Creatinine Ratio 26.5 (9.0-21.6) H 04/14/17 19:25 Random Glucose 147 mg/dL (70-110) H 04/14/17 19:25 Lactic Acid, Venous 2.0 mmol/L (0.4-1.9) H 04/14/17 19:25 Calcium 9.2 mg/dL (7.9-10.9) 04/14/17 19:25 Calcium Adj for Albumin 9.7 mg/dL (8.4-10.2) 04/14/17 19:25 Total Bilirubin 0.5 mg/dL (0.0-1.1) 04/14/17 19:25 AST 42 U/L (0-48) 04/14/17 19:25 ALT 66 U/L (19-67) 04/14/17 19:25 Alkaline Phosphatase 144 U/L (50-170) 04/14/17 19:25 Troponin I Less than 0.017 ng/ml (0.00-0.10) 04/14/17 19:25 B-Natriuretic Peptide 302 pg/mL (5-325) 04/14/17 19:25 Total Protein 7.8 gm/dL (6.2-8.2) 04/14/17 19:25 Albumin 3.0 gm/dl (3.4-5.0) L 04/14/17 19:25 Influenza Type A Ag Negative (NEGATIVE) 04/14/17 19:15 Influenza Type B Ag Negative (NEGATIVE) 04/14/17 19:15 CXR: Unchanged mildly thick walled bulla within the right lung base. emphysema Assessment/Plan - Narrative Narrative: pneumonia with lung abscess- Seen on CXR: Unchanged mildly thick walled bulla within the right lung base. emphysema pt follow up with template maker in [place] pt had recurrent lung abscess continue with Levaquin and clindamycin sputum and blood culture pending Supplemented oxygen Duoneb schedule On adm Procalcitonin negative and lactic acid 2.0--->2.4 COPD Plan same as #1 Hypothyriodism Resume home medications Hypertension- stable May resume home medications Monitor VS Chronic Bilateral leg pain pt was given steroid injections to both knees over a year ago without much relieve. Plans for follow up with orth or PCP upon discharge. Hypoxic- resolved On adm spo2 88%----> 93% on room air Code status: Full GI ppx: protonix VTE ppx: SCD and ambulate Time 40 minutes and case discussed with Dr Brar. - Assessment/Plan (1) Lung abscess Problem: Chronic Qualifiers: Pulmonary abscess pneumonia presence: without pneumonia Laterality: right Lung location: lower lobe of lung Qualified Code(s): J85.2 - Abscess of lung without pneumonia (2) Acute exacerbation of chronic obstructive pulmonary disease (COPD) Problem: Acute (3) Lactic acidosis Problem: Acute (4) Abscess of lung with pneumonia Problem: Chronic Qualifiers: (5) Leg pain, bilateral Problem: Acute (6) Hypertension Problem: Chronic Qualifiers: Hypertension type: essential hypertension Qualified Code(s): I10 - Essential (primary) hypertension (7) Hypothyroidism Problem: Chronic Qualifiers: Hypothyroidism type: acquired Qualified Code(s): E03.9 - Hypothyroidism, unspecified (8) Insomnia Problem: Chronic
[2017-04-14] MEDS: CLINDAMYCIN PHOSPHATE 300 MG in DEXTROSE 5 % IN WATER 50 ML IV SCH ×2 (22:31)
[2017-04-14] MEDS: ZOLPIDEM TARTRATE 10 MG TABLET PO SCH (23:19)
[2017-04-15] MEDS: METHYLPREDNISOLONE SOD SUCC 60 MG in WATER FOR INJ.,BACTERIOSTATIC 0 ML IV SCH ×3 (01:16→13:47)
[2017-04-15] MEDS: NORMAL SALINE 1,000 ML IV PRN ×3 (01:16→18:43)
[2017-04-15] MEDS: PANTOPRAZOLE SODIUM 40 MG TABLET.EC PO SCH ×2 (01:16→06:35)
[2017-04-15] MEDS: CLINDAMYCIN PHOSPHATE 300 MG in DEXTROSE 5 % IN WATER 50 ML IV SCH ×6 (05:19→21:47)
[2017-04-15 05:52] LABS: Hematocrit 38.6 % (37.0-47.0); Hemoglobin 12.6 gm/dL (12.5-16.0); Mean Cell Volume 88.5 fl (78-100); Mean Corpuscular Hemoglobin 28.9 pg (27-31); Mean Corpuscular Hgb Conc 32.6 g/dl (32-36); Mean Platelet Volume 10.7 fl (6.0-9.5); Platelet Count 366 K/mm3 (150-450); Red Blood Count 4.36 M/mm3 (4.2-5.4); Red Cell Distribution Width 12.9 % (11.5-14.0); White Blood Count 8.2 K/mm3 (4.0-10.5)
[2017-04-15 05:55] LABS: Total Cells Counted 100
[2017-04-15 06:01] LABS: Anion Gap 11.6 mmol/L (6.8-13.8); BUN/Creatinine Ratio 25.3 (9.0-21.6); Calcium * 9.2 mg/dL (7.9-10.9); Carbon Dioxide 28.4 mmol/L (24-32.6); Estimated Creat Clear 46.5
[2017-04-15 06:08] LABS: Atypical (Reactive) Lymph 1 % (0-2); Band 14 % (0-2.0); Dohle Bodies 1+; Lymphocyte 10 % (20-51); Monocyte 3 % (0-9); Neutrophil 72 % (42-75); Neutrophil # 5.9 K/mm3 (1.3-6.0); Platelet Estimate Normal (NORMAL); Toxic Granulation 1+
[2017-04-15] MEDS: ALBUTEROL SULFATE/IPRATROPIUM 3 ML NEBU IH SCH ×4 (06:16→18:19)
[2017-04-15] MEDS ORDERED: FLU VACC QS2017-18(6MOS UP)/PF 60 MCG/0.5 ML SYRINGE IM ONE (09:00)
[2017-04-15] MEDS: LEVOTHYROXINE SODIUM 175 MCG TABLET PO SCH (09:27)
--- NOTE | 2017-04-15 13:03 | PN ---
Subjective - Date and Time Seen Date: 04/15/17 Time: 13:03 Subjective Narrative: Patient continues to feel short of breath, weak, not well. She was on oxygen yesterday and all night. Have been able to wean off of oxygen around 10AM. Objective - Vitals Vitals: Last Vital Signs Temp 36.9 C 04/15/17 10:22 Pulse 72 04/15/17 10:23 Resp 25 H 04/15/17 10:23 BP 108/60 04/15/17 10:22 Pulse Ox 95 04/15/17 10:30 - Abnormal Lab Findings Abnormal Lab Findings: Abnormal Lab Results 04/14/17 04/15/17 04/15/17 Range/Units 23:45 05:48 05:48 MPV 10.7 H (6.0-9.5) fl Band Neuts % (Manual) 14 H (0-2.0) % Lymphocytes % (Manual) 10 L (20-51) % Lymphocytes # (Manual) 0.8 L (1.5-3.5) k/mm3 BUN/Creatinine Ratio 25.3 H (9.0-21.6) Random Glucose 186 H (70-110) mg/dL Lactic Acid, Venous 2.4 H* (0.4-1.9) mmol/L - Exam Constitutional: Present: Alert, Oriented x3, Cooperative ENT Exam: Present: hearing grossly normal Respiratory: Present: decreased breath sounds - Bilateral base, wheezing - throughout Cardiovascular/Chest: Present: regular rate, rhythm, no murmur Abdomen: Present: Normal bowel sounds, soft, nontender, nondistended Skin Exam: Present: normal color, warm/dry, no cyanosis Assessment/Plan Plan Narrative: Lynn is a 66 yo female admitted with: 1) Acute respiratory failure - 80% on Room air. Placed on oxygen to keep sats > 90%. Treated with antibiotics, breathing treatments, and steroid. Able to be weaned to room air late this morning, but still very weak and not feeling well. Patient should have been acute inpatient from admission due to acute respiratory failure. Expect >2 midnights to wean off oxygen and then monitor to see that she remains on room air. Will change antibiotics to oral for tomorrow. 2) COPD with exacerbation (Treatment as above) 3) Chronic Lung Abscess - Problems/Diagnosis (1) Acute respiratory failure Problem: Acute (2) COPD with acute exacerbation Problem: Acute (3) Lung abscess Problem: Chronic Qualifiers: Pulmonary abscess pneumonia presence: without pneumonia Laterality: right Lung location: lower lobe of lung Qualified Code(s): J85.2 - Abscess of lung without pneumonia
[2017-04-15] MEDS ORDERED: ZOLPIDEM TARTRATE 10 MG TABLET PO SCH (21:00)
[2017-04-15] MEDS: ZOLPIDEM TARTRATE 10 MG TABLET PO SCH (21:48)
[2017-04-15] MEDS: LEVOFLOXACIN IN DEXTROSE 5 % 750 MG/150 ML BAG IV SCH (21:48)
[2017-04-16] MEDS: NORMAL SALINE 1,000 ML IV PRN (04:50)
[2017-04-16] MEDS: CLINDAMYCIN PHOSPHATE 300 MG in DEXTROSE 5 % IN WATER 50 ML IV SCH ×2 (05:53)
[2017-04-16] MEDS: ALBUTEROL SULFATE/IPRATROPIUM 3 ML NEBU IH SCH ×2 (06:12→10:26)
[2017-04-16] MEDS: LEVOTHYROXINE SODIUM 175 MCG TABLET PO SCH (06:29)
[2017-04-16] MEDS: PANTOPRAZOLE SODIUM 40 MG TABLET.EC PO SCH (06:29)
[2017-04-16 08:40] LABS: Hematocrit 34.5 % (37.0-47.0); Hemoglobin 11.4 gm/dL (12.5-16.0); Mean Cell Volume 88.7 fl (78-100); Mean Corpuscular Hemoglobin 29.3 pg (27-31); Mean Platelet Volume 10.6 fl (6.0-9.5); Neutrophil # 10.7 K/mm3 (1.3-6.0); Neutrophil % 79.9 % (42-75.0); Platelet Count 339 K/mm3 (150-450); Red Blood Count 3.89 M/mm3 (4.2-5.4); Red Cell Distribution Width 13.3 % (11.5-14.0); White Blood Count 13.4 K/mm3 (4.0-10.5)
[2017-04-16 08:55] LABS: Albumin * 2.2 gm/dl (3.4-5.0); Anion Gap 8.9 mmol/L (6.8-13.8); BUN/Creatinine Ratio 24.7 (9.0-21.6); Bilirubin, Total 0.2 mg/dL (0.0-1.1); Ca. Corrected For Albumin 9.8 mg/dL (8.4-10.2); Calcium * 8.7 mg/dL (7.9-10.9); Carbon Dioxide 27.6 mmol/L (24-32.6); Potassium 3.5 mmol/L (3.4-4.6); Total Protein 5.7 gm/dL (6.2-8.2)
[2017-04-16] MEDS ORDERED: predniSONE 20 MG TABLET PO SCH (09:00)
[2017-04-16 10:32] VITALS: BP 146/71
[2017-04-16] MEDS ORDERED: LEVOFLOXACIN 750 MG TABLET PO SCH (11:00)
--- NOTE | 2017-04-16 13:24 | DS ---
(1) Acute respiratory failure Problem: Acute (2) COPD with acute exacerbation Problem: Acute (3) Lung abscess Problem: Chronic Qualifiers: Pulmonary abscess pneumonia presence: without pneumonia Laterality: right Lung location: lower lobe of lung Qualified Code(s): J85.2 - Abscess of lung without pneumonia Description of Stay: Lynn is a 67 yo female admitted with acute respiratory failure with hypoxia of 80% on room air secondary to COPD exacerbation. She was treated with steroids, breathing treatments, and levaquin. She was initially placed on 2lpm of oxygen via NC to keep above 90% but with treatment and time she was weaned off of oxygen to room air. She continued to improve and was discharged to home to complete antibiotics. Procedures Performed: none Discharge Disposition: Home self care Disposition: Home self-care Condition: Good Discharge Activity: Activity as tolerated Discharge Diet: General/regular food Referrals: Acosta Brar DO [Staff Physician] - One Week Problem Oriented Discharge Instructions to Patient/Family: Chronic Obstructive Pulmonary Disease Exacerbation, [id number] Additional Patient Instructions (free text): TCM appointment unless snf discharge. Thank you! Socorro @ ext:[phone]. Follow up appointment with Dr. Brar on 04/23/17 at 2:00pm. Prescriptions (Any new or edited meds): Levofloxacin [Levaquin] 750 mg PO DAILY@1100 #7 tablet predniSONE [Prednisone] 40 mg PO DAILY #14 tablet Complete Home Medications List: Complete Home Medication List: Levothyroxine Sodium [Tirosint] 175 mcg PO DAILY 07/12/15 Zolpidem Tartrate [Ambien] 10 mg PO HS 11/28/15 Albuterol Sulfate [Proventil Hfa] 6.7 gm IH QAM 09/16/16 Albuterol Sulfate/Ipratropium [Duoneb 2.5-0.5MG/3ML Soln] 3 ml IH QID 04/14/17 Acetaminophen [Tylenol] 650 mg PO Q6H PRN 04/15/17 Levofloxacin [Levaquin] 750 mg PO DAILY@1100 #7 tablet 04/16/17 predniSONE [Prednisone] 40 mg PO DAILY #14 tablet 04/16/17
== END 2017-04-16 13:52 | disposition home or self-care (01) | DRG 189 ==
LOC: ER 18:52 → MS 20:45 → OBSVTOIN 04-15 13:01
PROVIDERS: ADMIT Nurse Practitioner; ATTEND Family Medicine
DX: J44.1 Chronic obstructive pulmonary disease with (acute) exacerbation; J96.00 Acute respiratory failure, unspecified whether with hypoxia or hypercapnia; E87.2 Acidosis; Z23 Encounter for immunization; Z87.891 Personal history of nicotine dependence; E03.9 Hypothyroidism, unspecified; Z87.01 Personal history of pneumonia (recurrent); J85.2 Abscess of lung without pneumonia

== ENCOUNTER 2018-07-06 19:45 | Inpatient (IN) ==
[2018-07-06] MEDS ORDERED: NORMAL SALINE 1,000 ML IV ONE ×2 (20:19→21:15)
[2018-07-06] MEDS ORDERED: METHYLPREDNISOLONE SOD SUCC/PF 40 MG/ML VIAL IV ONE (20:22)
[2018-07-06] MEDS ORDERED: ALBUTEROL SULFATE 2.5 MG/0.5 ML VIAL.NEB IH ONE (20:22)
--- NOTE | 2018-07-06 20:29 | ERNOTE ---
<Desi Kramer - Last Filed: 07/06/18 22:27> Medical Problem HPI - Narrative Date of Service: 07/06/18 - General Chief Complaint: General Assessment Time Seen by Provider: 07/06/18 20:05 Source: patient Exam Limitations: no limitations - Immun/Allergies/Home Medications Immunizations: IMMUNIZATION HX Immunizations Up to Date Yes History of Influenza Vaccine No Hx Pneumococcal Vaccination Yes Allergies/Adverse Reactions: Allergies codeine [Codeine] Adverse Reaction (Mild, Verified 07/06/18 20:01) Vomiting Home Medications: HOME MEDICATIONS Levothyroxine Sodium [Levo-T] 150 mcg PO DAILY #30 tab 01/12/18 [Last Taken Unknown] acetaminophen 325 mg tablet 650 mg PO Q6H PRN tab 01/16/18 [Last Taken Unknown] cholecalciferol (vitamin D3) 1,000 unit capsule 1,000 unit PO DAILY 01/16/18 [Last Taken Unknown] ipratropium-albuterol 0.5 mg-3 mg(2.5 mg base)/3 mL nebulization soln 3 ml IH QID 01/16/18 [Last Taken Unknown] sertraline 50 mg tablet 50 mg PO DAILY 01/16/18 [Last Taken Unknown] zolpidem 10 mg tablet 10 mg PO HS #30 tab 02/04/18 [Last Taken Unknown] - History of Present History Narrative: Pt. [place] in [place] with [place] and c/o fatigue malaise weakness, chills, and SOB for unknown amount of time. Pt. states that she has not been taking any of her medications that she is supposed to be taking other than her sleeping pill. Pt. denies any alleviating factor or aggravating factor. Pt. denies any prehospital treatment. Timing: getting worse Severity: mild, moderate Modifying Factors - (Improves): Present: other - denies Modifying Factors - (Worsens): Present: other - denies Review of Systems - Review of Systems Constitutional: Present: chills, weakness, fatigue, malaise EYE: Present: no symptoms reported ENT: Present: no symptoms reported Respiratory: Present: shortness of breath. Absent: cough, wheezing Cardiology: Present: no symptoms reported. Absent: chest pain, palpitations, edema Gastrointestinal/Abdominal: Present: no symptoms reported. Absent: nausea, vomiting, diarrhea, abdominal pain Genitourinary: Present: no symptoms reported. Absent: frequency, decreased urinary output Musculoskeletal: Present: no symptoms reported. Absent: back pain, neck pain, joint pain Skin: Present: no symptoms reported. Absent: rash, change in color Neurological: Present: no symptoms reported. Absent: headache, dizziness/light- headedness, numbness, tingling Endocrine: Present: no symptoms reported All Other Systems: All systems neg except as marked Medical History (Last Reviewed 07/06/18 @ 20:01 by Mayra Fisher) Anxiety COPD (chronic obstructive pulmonary disease) Hypothyroidism Lung abscess Osteoarthritis Crohns disease Onset Date: Unknown History of insomnia Onset Date: 11/07/15 History of cerebrovascular accident in adulthood Onset Date: ~1999 History of pneumonia Onset Date: 06/24/12 Surgical History: Surgical History (Last Updated 01/16/18 @ 11:20 by Mirna Faustin) History of cataract surgery History of cholecystectomy History of ovarian cystectomy History of thyroid surgery History of appendectomy Onset Date: ~1969 History of bronchoscopy Onset Date: 03/13/152011 Dr Jone Saldana Bagan-benign cellular elements. No pathogens History of colonoscopy Onset Date: 02/12/11 Tinguely -tubular adenoma History of hysterectomy Onset Date: ~1979 1979's complete History of salpingo-oophorectomy Onset Date: ~1998 Dr Dolan bilateral History of tonsillectomy Onset Date: Unknown Family History: Family History (Last Reviewed 07/06/18 @ 20:02 by Mayra Fisher) Father , age 60 Myocardial infarction Mother , age 62 Myocardial infarction Heart disease Diabetes Social History: Preferred Language Tongan Smoking Status Former smoker Abuse History No History of abuse Psych History Hx of Depression Alcohol Use none Drug Use none (Last Updated 01/16/18 @ 11:23 by Mirna Faustin) No Social History Section defined Physical Exam - Physical Exam General Appearance: Present: wd/wn, alert, moderate distress Head Exam: Present: normal inspection, no evidence of injury, no tenderness w palpation Eye Exam: Normal inspection: bilateral Ears, Nose, Throat: Present: nasal congestion, normal pharynx. Absent: abnormal TM (R), abnormal TM (L) Neck: Present: lymphadenopathy (R) - ant cervicle, lymphadenopathy (L) - ant cervicle, thyromegaly Respiratory: Present: normal breath sounds, no accessory muscle use, chest nontender, respiratory distress, accessory muscle use, decreased breath sounds - BLL, wheezing - BUL. Absent: crackles, rales, rhonchi Cardiovascular/Chest: Present: regular rate, rhythm, no murmur, normal peripheral pulses Gastrointestinal/Abdominal: Present: normal bowel sounds, nontender, nondistended, soft, no organomegaly Back Exam: Present: normal inspection Extremity Exam: Present: normal inspection, non-tender, normal range of motion, no edema Neurological Exam: Present: alert, oriented, normal mood/affect, no motor/sensory deficits, creative services producer II-XII nml as tested, normal cerebellar test Skin Exam: Present: warm/dry, pallor Progress - Results and Orders Patient's Lab Results:: I have reviewed the patient's lab results. Results and Orders: Laboratory Results - last 24 hr 07/06/18 07/06/18 07/06/18 20:02 20:45 20:45 WBC 9.0 RBC 5.50 H Hgb 16.0 Hct 49.8 H MCV 90.5 MCH 29.1 MCHC 32.1 RDW 15.0 H Plt Count 286 MPV 10.6 Immature Gran % (Auto) 0.20 Immature Gran # (Auto) 0.02 Neutrophils % 77.1 H Lymphocytes % 14.0 L Monocytes % 6.9 Eosinophils % 1.1 Basophils % 0.7 Nucleated RBC % 0.0 Neutrophils # 7.0 H Lymphocytes # 1.26 L Monocytes # 0.6 Eosinophils # 0.1 Absolute Basophils 0.1 ESR D-Dimer Sodium 142 Plasma Sodium 142 Potassium 3.4 Chloride 103 Carbon Dioxide 27.3 Anion Gap 15.1 H BUN 11 Creatinine 1.22 Est GFR (Non-Af Amer) 47 L D BUN/Creatinine Ratio 9.0 Random Glucose 80 Lactic Acid, Venous Calcium 9.9 Calcium Adj for Albumin 9.5 Total Bilirubin 0.7 AST 37 ALT 11 L Alkaline Phosphatase 148 C-Reactive Prot, Quant 0.5 Total Protein 7.7 Albumin 4.1 TSH 120.620 H Free T4 0.18 L Influenza Type A Ag Negative Influenza Type B Ag Negative Group A Strep Rapid 07/06/18 07/06/18 07/06/18 20:45 20:45 20:45 WBC RBC Hgb Hct MCV MCH MCHC RDW Plt Count MPV Immature Gran % (Auto) Immature Gran # (Auto) Neutrophils % Lymphocytes % Monocytes % Eosinophils % Basophils % Nucleated RBC % Neutrophils # Lymphocytes # Monocytes # Eosinophils # Absolute Basophils ESR 15 D-Dimer 1.06 H Sodium Plasma Sodium Potassium Chloride Carbon Dioxide Anion Gap BUN Creatinine Est GFR (Non-Af Amer) BUN/Creatinine Ratio Random Glucose Lactic Acid, Venous 3.2 H* Calcium Calcium Adj for Albumin Total Bilirubin AST ALT Alkaline Phosphatase C-Reactive Prot, Quant Total Protein Albumin TSH Free T4 Influenza Type A Ag Influenza Type B Ag Group A Strep Rapid 07/06/18 20:56 WBC RBC Hgb Hct MCV MCH MCHC RDW Plt Count MPV Immature Gran % (Auto) Immature Gran # (Auto) Neutrophils % Lymphocytes % Monocytes % Eosinophils % Basophils % Nucleated RBC % Neutrophils # Lymphocytes # Monocytes # Eosinophils # Absolute Basophils ESR D-Dimer Sodium Plasma Sodium Potassium Chloride Carbon Dioxide Anion Gap BUN Creatinine Est GFR (Non-Af Amer) BUN/Creatinine Ratio Random Glucose Lactic Acid, Venous Calcium Calcium Adj for Albumin Total Bilirubin AST ALT Alkaline Phosphatase C-Reactive Prot, Quant Total Protein Albumin TSH Free T4 Influenza Type A Ag Influenza Type B Ag Group A Strep Rapid Negative - Vital Signs Patient's Vital Signs:: I have reviewed the patient's vital signs. Vital Signs: Vital Signs 07/06/18 19:57 Temperature 36 C Pulse Rate 104 H Respiratory Rate 22 H Blood Pressure 154/100 H O2 Sat by Pulse Oximetry 97 - X-Ray X-Ray #1 X-Ray: chest Interpretation: Reviewed by me X-ray Comments: RLL thine=walled fluid filled sac - Progress/Reassessment Chief Complaint: General Assessment Progress:: Unchanged - Transfer of Care Physician Sign Out: Desi Kramer Receiving Physician: Laine Stanford Pending Results: CT/MRI results Expected Disposition: Admit Departure Clinical Impression: SOB (shortness of breath), Pneumonia Hypothyroidism Qualifiers: Hypothyroidism type: unspecified Qualified Code(s): E03.9 - Hypothyroidism, unspecified - Departure Disposition: Still a patient Condition: Fair <Laine Stanford - Last Filed: 07/06/18 23:50> Medical Problem HPI - Immun/Allergies/Home Medications Immunizations: IMMUNIZATION HX Immunizations Up to Date Yes History of Influenza Vaccine No Hx Pneumococcal Vaccination Yes Medical History (Last Reviewed 07/06/18 @ 20:01 by Mayra Fisher) Hypothyroidism Anxiety COPD (chronic obstructive pulmonary disease) Lung abscess Osteoarthritis Crohns disease Onset Date: Unknown History of insomnia Onset Date: 11/07/15 History of cerebrovascular accident in adulthood Onset Date: ~1999 History of pneumonia Onset Date: 06/24/12 Surgical History: Surgical History (Last Updated 01/16/18 @ 11:20 by Mirna Faustin) History of cataract surgery History of cholecystectomy History of ovarian cystectomy History of thyroid surgery History of appendectomy Onset Date: ~1969 History of bronchoscopy Onset Date: 03/13/152011 Dr Becerril 2014 Bagan-benign cellular elements. No pathogens History of colonoscopy Onset Date: 02/12/11 Tinguely -tubular adenoma History of hysterectomy Onset Date: ~1979 1979' complete History of salpingo-oophorectomy Onset Date: ~1998 Dr Dolan bilateral History of tonsillectomy Onset Date: Unknown Family History: Family History (Last Reviewed 07/06/18 @ 20:02 by Mayra Fisher) Father , age 60 Myocardial infarction Mother , age 62 Myocardial infarction Heart disease Diabetes Social History: Preferred Language Tongan Smoking Status Former smoker Abuse History No History of abuse Psych History Hx of Depression Alcohol Use none Drug Use none (Last Updated 01/16/18 @ 11:23 by Mirna Faustin) No Social History Section defined Progress - Vital Signs Vital Signs: Vital Signs 07/06/18 19:57 07/06/18 20:43 07/06/18 20:57 Temperature 36 C Pulse Rate 104 H 89 92 Respiratory Rate 22 H 18 18 Blood Pressure 154/100 H 156/74 H O2 Sat by Pulse Oximetry 97 96 95 07/06/18 21:30 07/06/18 22:00 07/06/18 22:47 Temperature Pulse Rate 88 88 88 Respiratory Rate 18 18 18 Blood Pressure 163/85 H 143/68 151/77 H O2 Sat by Pulse Oximetry 98 95 95 07/06/18 23:14 Temperature Pulse Rate 91 Respiratory Rate 18 Blood Pressure 161/86 H O2 Sat by Pulse Oximetry 97 - CT/Ultrasound CT/Ultrasound Narrative: Cavitary lesion in the right middle lobe with air fluid levels, measuring 7 by 4.5 cm, differential includes abscess vs cavitary neoplasm. Fluid component has increased in comparison to prior exam 09/22/17. Bilateral tree in bud infiltrates are seen in the lower lobes, suggesting inflammatory process. Negative for pulmonary embolus, aortic aneurysm, or aortic dissection. Plan - Plan Plan: ordered antibiotics scheduled, and Dr. Oliveros will admit to med surg
[2018-07-06 20:53] LABS: Hematocrit 49.8 % (37.0-47.0); Mean Cell Volume 90.5 fl (78-100); Mean Corpuscular Hemoglobin 29.1 pg (27-31); Mean Corpuscular Hgb Conc 32.1 g/dl (32-36); Mean Platelet Volume 10.6 fl (8-12.5); Neutrophil % 77.1 % (42-75.0); Platelet Count 286 K/mm3 (150-450)
[2018-07-06 21:14] LABS: Albumin * 4.1 gm/dl (3.4-5.0); Anion Gap 15.1 mmol/L (6.8-13.8); Bilirubin, Total 0.7 mg/dL (0.0-1.1); CRP 0.5 mg/dL (0.0-0.9); Ca. Corrected For Albumin 9.5 mg/dL (8.4-10.2); Calcium * 9.9 mg/dL (7.9-10.9); Carbon Dioxide 27.3 mmol/L (24-32.6); Potassium 3.4 mmol/L (3.4-4.6); T4 Free * 0.18 ng/dL (0.76-1.46); Total Protein 7.7 gm/dL (6.2-8.2)
[2018-07-06] MEDS ORDERED: DEXTROSE 5 % IN WATER 100 ML BAG IV ONE (21:18)
[2018-07-06 21:49] LABS: TSH * 120.62 uIU/mL (0.358-3.74)
[2018-07-06 22:17] LABS: Urine Bilirubin Negative (NEGATIVE); Urine Ketone Negative (NEGATIVE); Urine Protein Negative (NEGATIVE); Urine Urobilinogen Normal (NORMAL)
[2018-07-06 22:35] LABS: Cocaine Ur Negative (NEGATIVE); Urine Barbiturate Negative (NEGATIVE); Urine Benzodiazepines Negative (NEGATIVE); Urine Opiates Negative (NEGATIVE); Urine PCP Negative (NEGATIVE); Urine THC Negative (NEGATIVE)
[2018-07-06 22:38] LABS: Urine Appearance Slightly Cloudy (CLEAR); Urine Bacteria 3+; Urine Blood 5 /ul (NEGATIVE); Urine Color Pale Yellow; Urine Nitrite Positive (NEGATIVE); Urine RBC TRACE /hpf (0-5)
[2018-07-06] MEDS ORDERED: AZITHROMYCIN 250 MG TABLET PO ONE (23:16)
[2018-07-06] MEDS ORDERED: ACETAMINOPHEN 325 MG TABLET PO PRN ×2 (23:20)
[2018-07-06] MEDS ORDERED: LEVOTHYROXINE SODIUM IV ONE (23:25)
[2018-07-07] MEDS: NORMAL SALINE 1,000 ML IV PRN ×2 (01:07→09:12)
[2018-07-07] MEDS ORDERED: LEVOTHYROXINE SODIUM IV ONE (02:10)
[2018-07-07] MEDS: LEVOTHYROXINE SODIUM 150 MCG TABLET PO SCH (07:36)
--- NOTE | 2018-07-07 09:28 | HP ---
Chief Complaint - Chief Complaint Date of Service: 07/07/18 Time of Service: 08:00 Chief Complaint: weakness, sob, leg pain, uti History of Present Illness: Lynn Romano is a 68 yo wh. fe. Patient of Dr. Brar, who is admitted through the ER with diagnosis of fever, weakness, uti, sob, pulmonary cyst, copd.She appears acutely and chronically ill. She has a past medical history of COPD and a right pulmonary cyst that was drained. CT of the chest done in ER however reflects this may have reformed. The fluid level has waxed and waned in the cyst since 2011. He presents to services half for fluid and suggests that there is acute inflammatory reaction probably secondary to infection. Urinalysis shows evidence of a urinary tract infection. She believes that she is noticeably weaker than usual. She gets dyspneic with minor exertion that this is not new and has not changed from baseline. She is complaining of both her legs hurting chronically. She apparently received some steroid injections in the past and she thinks that that may have made her worse. Medical History (Last Reviewed 07/07/18 @ 00:42 by Anisha Navarro RN) Hypothyroidism Anxiety COPD (chronic obstructive pulmonary disease) Lung abscess Osteoarthritis Crohns disease Onset Date: Unknown History of insomnia Onset Date: 11/07/15 History of cerebrovascular accident in adulthood Onset Date: ~1999 History of pneumonia Onset Date: 06/24/12 Surgical History: Surgical History (Last Reviewed 07/07/18 @ 00:42 by Anisha Navarro RN) History of cataract surgery History of cholecystectomy History of ovarian cystectomy History of thyroid surgery History of appendectomy Onset Date: ~1969 History of bronchoscopy Onset Date: 03/13/152011 Dr Becerril 2014 Bagan-benign cellular elements. No pathogens History of colonoscopy Onset Date: 02/12/11 Tinguely -tubular adenoma History of hysterectomy Onset Date: ~1979 complete History of salpingo-oophorectomy Onset Date: ~1998 Dr Dolan bilateral History of tonsillectomy Onset Date: Unknown Family History: Family History (Last Reviewed 07/07/18 @ 00:42 by Anisha Navarro RN) Father , age 60 Myocardial infarction Mother , age 62 Myocardial infarction Heart disease Diabetes Social History: Patient Lives/Resources Home Utilized Occupation retired Preferred Language Sami Do you have any cheondoism or No cultural preference? Smoking Status Former smoker Have you smoked in the past 12 No months Abuse History No History of abuse Psych History Hx of Depression Alcohol Use none Drug Use none (Last Updated 01/16/18 @ 11:23 by Mirna Faustin) No Social History Section defined Review Of Systems (GEN) - Review of Systems Generalized/Overall Review: Present: Weakness, Chills, Fever EENTM: Present: No Symptoms Reported Respiratory: Present: Cough, Shortness of Breath, Wheezing Cardiac: Present: No Symptoms Reported Abdominal: Present: No Symptoms Reported Genitourinary: Present: Burning, Urgency, Frequency, Dysuria Musculoskeletal: Present: Muscle Pain - In both lower legs Neurological: Present: Weakness, Pre-existing Deficit Skin: Present: No Symptoms Reported Endocrine: Present: No Symptoms Reported - Has a history of hypothyroidism Misc: All systems neg except as marked Immunizations: IMMUNIZATION HX Immunizations Up to Date Yes History of Influenza Vaccine No Hx Pneumococcal Vaccination Yes Allergies/Adverse Reactions: Allergies Allergy/AdvReac Type Severity Reaction Status Date / Time codeine [Codeine] AdvReac Mild Vomiting Verified 07/07/18 00:42 Home Medications: HOME MEDICATIONS zolpidem 10 mg tablet 10 mg PO HS #30 tab 02/04/18 [Last Taken Unknown] Exam - Exam Vital Signs: Vital Signs - Last Taken Temp 37.5 C 07/07/18 07:44 Pulse 86 07/07/18 07:44 Resp 16 07/07/18 07:44 BP 108/59 07/07/18 07:44 Pulse Ox 93 07/07/18 07:44 Constitutional: Present: Alert, Oriented x3, Cooperative, Well developed, Mild distress, Thin and frail ENT Exam: Present: normal ENT inspection, hearing grossly normal, pharynx normal, TMs normal Eye Exam: bilateral eye: normal inspection, PERRL, EOMI Neck: Present: non-tender, full range of motion, supple, normal inspection, trachea midline Back Exam: Present: normal inspection, no CVA tenderness, no vertebral tenderness Respiratory: Present: decreased breath sounds, rhonchi, wheezing, expiration (prolonged) Cardiovascular/Chest: Present: normal peripheral pulses, regular rate, rhythm, no chest tenderness, no edema, no gallop, no JVD, no murmur, no rub Peripheral Pulses: carotid (R): 2+, carotid (L): 2+, radial (R): 2+, radial (L): 2+ Abdomen: Present: Normal bowel sounds, soft, nontender, nondistended /Rectal: Present: Exam deferred Extremity: Present: normal range of motion, leg pain - Bilateral and chronic thigh pain Skin Exam: Present: pallor - Plethoric complexion Lymphatic: Present: no adenopathy 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 Appearance: Present: disheveled Eye contact: Present: cooperative, good eye contact, normal speech Thoughts: Present: normal thought pattern, no apparent hallucination - Appears acutely and chronically ill Diagnostic Studies: Abnormal Lab Results 07/06/18 07/06/18 07/06/18 Range/Units 20:45 20:45 20:45 RBC 5.50 H (4.2-5.4) M/mm3 Hct 49.8 H (37.0-47.0) % RDW 15.0 H (11.5-14.0) % Neutrophils % 77.1 H (42-75.0) % Lymphocytes % 14.0 L (20-51) % Neutrophils # 7.0 H (1.3-6.0) K/mm3 Lymphocytes # 1.26 L (1.5-3.5) k/mm3 D-Dimer 1.06 H (0.19-0.49) ug/mL Anion Gap 15.1 H (6.8-13.8) mmol/L Est GFR (Non-Af Amer) 47 L D (60-130) mL/min Lactic Acid, Venous (0.4-2.0) mmol/L ALT 11 L (19-67) U/L TSH 120.620 H (0.358-3.74) uIU/mL Free T4 0.18 L (0.76-1.46) ng/dL Urine Blood (NEGATIVE) /ul Urine Nitrate (NEGATIVE) Ur Leukocyte Esterase (NEGATIVE) /ul Urine WBC (0-5) /hpf Urine Bacteria (NONE) 07/06/18 07/06/18 Range/Units 20:45 22:04 RBC (4.2-5.4) M/mm3 Hct (37.0-47.0) % RDW (11.5-14.0) % Neutrophils % (42-75.0) % Lymphocytes % (20-51) % Neutrophils # (1.3-6.0) K/mm3 Lymphocytes # (1.5-3.5) k/mm3 D-Dimer (0.19-0.49) ug/mL Anion Gap (6.8-13.8) mmol/L Est GFR (Non-Af Amer) (60-130) mL/min Lactic Acid, Venous 3.2 H* (0.4-2.0) mmol/L ALT (19-67) U/L TSH (0.358-3.74) uIU/mL Free T4 (0.76-1.46) ng/dL Urine Blood 5 H (NEGATIVE) /ul Urine Nitrate Positive H (NEGATIVE) Ur Leukocyte Esterase 25 H (NEGATIVE) /ul Urine WBC 5-10 H (0-5) /hpf Urine Bacteria 3+ H (NONE) Laboratory Results WBC 9.0 K/mm3 (4.0-10.5) 07/06/18 20:45 RBC 5.50 M/mm3 (4.2-5.4) H 07/06/18 20:45 Hgb 16.0 gm/dL (12.5-16.0) 07/06/18 20:45 Hct 49.8 % (37.0-47.0) H 07/06/18 20:45 MCV 90.5 fl (78-100) 07/06/18 20:45 MCH 29.1 pg (27-31) 07/06/18 20:45 MCHC 32.1 g/dl (32-36) 07/06/18 20:45 RDW 15.0 % (11.5-14.0) H 07/06/18 20:45 Plt Count 286 K/mm3 (150-450) 07/06/18 20:45 MPV 10.6 fl (8-12.5) 07/06/18 20:45 Immature Gran % (Auto) 0.20 % (0.001-0.429) 07/06/18 20:45 Immature Gran # (Auto) 0.02 K/mm3 (0.000-0.0310) 07/06/18 20:45 Neutrophils % 77.1 % (42-75.0) H 07/06/18 20:45 Lymphocytes % 14.0 % (20-51) L 07/06/18 20:45 Monocytes % 6.9 % (0.0-9) 07/06/18 20:45 Eosinophils % 1.1 % (0.0-3.0) 07/06/18 20:45 Basophils % 0.7 % (0.0-1.0) 07/06/18 20:45 Nucleated RBC % 0.0 k/mm3 (0-1) 07/06/18 20:45 Neutrophils # 7.0 K/mm3 (1.3-6.0) H 07/06/18 20:45 Lymphocytes # 1.26 k/mm3 (1.5-3.5) L 07/06/18 20:45 Monocytes # 0.6 k/mm3 (0.0-1.0) 07/06/18 20:45 Eosinophils # 0.1 k/mm3 (0.0-0.7) 07/06/18 20:45 Absolute Basophils 0.1 k/mm3 (0.0-0.1) 07/06/18 20:45 ESR 15 mm/hr (0-15) 07/06/18 20:45 D-Dimer 1.06 ug/mL (0.19-0.49) H 07/06/18 20:45 Sodium 142 mmol/L (132-142) 07/06/18 20:45 Plasma Sodium 142 mmol/L (130-142) 07/06/18 20:45 Potassium 3.4 mmol/L (3.4-4.6) 07/06/18 20:45 Chloride 103 mmol/L (97-106) 07/06/18 20:45 Carbon Dioxide 27.3 mmol/L (24-32.6) 07/06/18 20:45 Anion Gap 15.1 mmol/L (6.8-13.8) H 07/06/18 20:45 BUN 11 mg/dL (3-23) 07/06/18 20:45 Creatinine 1.22 mg/dL (0.4-1.4) 07/06/18 20:45 Est GFR (Non-Af Amer) 47 mL/min (60-130) L D 07/06/18 20:45 BUN/Creatinine Ratio 9.0 (9.0-21.6) 07/06/18 20:45 Random Glucose 80 mg/dL (70-110) 07/06/18 20:45 Lactic Acid, Venous 1.7 mmol/L (0.4-2.0) 07/06/18 23:15 Calcium 9.9 mg/dL (7.9-10.9) 07/06/18 20:45 Calcium Adj for Albumin 9.5 mg/dL (8.4-10.2) 07/06/18 20:45 Total Bilirubin 0.7 mg/dL (0.0-1.1) 07/06/18 20:45 AST 37 U/L (0-48) 07/06/18 20:45 ALT 11 U/L (19-67) L 07/06/18 20:45 Alkaline Phosphatase 148 U/L (50-170) 07/06/18 20:45 C-Reactive Prot, Quant 0.5 mg/dL (0.0-0.9) 07/06/18 20:45 Total Protein 7.7 gm/dL (6.2-8.2) 07/06/18 20:45 Albumin 4.1 gm/dl (3.4-5.0) 07/06/18 20:45 TSH 120.620 uIU/mL (0.358-3.74) H 07/06/18 20:45 Free T4 0.18 ng/dL (0.76-1.46) L 07/06/18 20:45 Urine Color Pale yellow 07/06/18 22:04 Urine Appearance Slightly cloudy (CLEAR) 07/06/18 22:04 Urine pH 7.0 pH (5.0-7.0) 07/06/18 22:04 Ur Specific [place] 1.010 SP.GR. (1.005-1.010) 07/06/18 22:04 Urine Protein Negative mg/dL (NEGATIVE) 07/06/18 22:04 Urine Glucose (UA) Negative mg/dL (NEGATIVE) 07/06/18 22:04 Urine Ketones Negative mg/dL (NEGATIVE) 07/06/18 22:04 Urine Blood 5 /ul (NEGATIVE) H 07/06/18 22:04 Urine Nitrate Positive (NEGATIVE) H 07/06/18 22:04 Urine Bilirubin Negative mg/dl (NEGATIVE) 07/06/18 22:04 Urine Urobilinogen Normal EU/dl (NORMAL) 07/06/18 22:04 Ur Leukocyte Esterase 25 /ul (NEGATIVE) H 07/06/18 22:04 Urine RBC Trace /hpf (0-5) 07/06/18 22:04 Urine WBC 5-10 /hpf (0-5) H 07/06/18 22:04 Ur Epithelial Cells Trace /hpf (0-5) 07/06/18 22:04 Urine Bacteria 3+ (NONE) H 07/06/18 22:04 Urine Culture Comments Culture to follow 07/06/18 22:04 Urine Opiates Screen Negative (NEGATIVE) 07/06/18 22:04 Barbiturate Screen Negative (NEGATIVE) 07/06/18 22:04 Ur Phencyclidine Scrn Negative (NEGATIVE) 07/06/18 22:04 Urine Amphetamine Negative (NEGATIVE) 07/06/18 22:04 U Benzodiazepines Scrn Negative (NEGATIVE) 07/06/18 22:04 Urine Cocaine Screen Negative (NEGATIVE) 07/06/18 22:04 Urine Marijuana (THC) Negative (NEGATIVE) 07/06/18 22:04 Influenza Type A Ag Negative (NEGATIVE) 07/06/18 20:02 Influenza Type B Ag Negative (NEGATIVE) 07/06/18 20:02 Group A Strep Rapid Negative (NEGATIVE) 07/06/18 20:56 Assessment/Plan - Narrative Narrative: 1. Acute weakness 2. Urinary tract infection 3. Profound hypothyroidism 4. Chronic pulmonary cyst with acute inflammatory process 5. Advanced COPD 6. Dyspnea at rest and worse with exertion 7. Chronic bilateral thigh pain etiology unknown Plan: 1. IV Rocephin and IV fluids. Next dose of Rocephin will be given this morning. 2. PT to evaluate mobility and fall risk 3. RT to evaluate for home oxygen 4. Probable discharge later today back to home as she apparently will not qualify for inpatient status - Assessment/Plan (1) Acute weakness Problem: Acute (2) Urinary tract infection Problem: Acute Qualifiers: Urinary tract infection type: acute cystitis Hematuria presence: without hematuria Qualified Code(s): N30.00 - Acute cystitis without hematuria (3) Lung cyst Problem: Chronic (4) Dyspnea on minimal exertion Problem: Chronic (5) Acute exacerbation of chronic obstructive pulmonary disease (COPD) Problem: Chronic (6) Hypothyroidism Problem: Chronic Qualifiers: Hypothyroidism type: acquired (7) COPD with acute exacerbation Problem: Acute (8) CKD (chronic kidney disease), stage III Problem: Chronic
[2018-07-07] MEDS: FLUCONAZOLE 200 MG TABLET PO SCH (09:47)
--- NOTE | 2018-07-07 12:55 | PN ---
Hali Note - Interim Date: 07/07/18 Time: 07:50 Narrative: 07/07/18 12:53 Kalen oxygen saturation at rest is in the 90s but with walking short distance she desaturated to 70 demonstrating a need for home oxygen. She will need continued therapy in the hospital for her infections. She is a patient of Dr. Brar and her care will be returned to him as soon as he is available.
[2018-07-07] MEDS: ENOXAPARIN SODIUM 40 MG/0.4 ML SYRG SC SCH (14:36)
[2018-07-07] MEDS: AZITHROMYCIN 250 MG TABLET PO SCH (20:52)
[2018-07-07] MEDS: ZOLPIDEM TARTRATE 10 MG TABLET PO SCH (20:52)
[2018-07-07] MEDS ORDERED: cefTRIAXone SODIUM 1,000 MG/100 ML BAG IV ONE (23:21)
[2018-07-07] MEDS ORDERED: AZITHROMYCIN 250 MG TABLET PO ONE (23:23)
[2018-07-08] MEDS: LEVOTHYROXINE SODIUM 150 MCG TABLET PO SCH (06:35)
[2018-07-08] MEDS: FLUCONAZOLE 200 MG TABLET PO SCH (08:36)
--- NOTE | 2018-07-08 11:06 | PN ---
Subjective - Date and Time Seen Date: 07/08/18 Time: 10:00 Subjective Narrative: Lynn appears to be some better today. Her color is better. She seems to be in less distress. She did walk from her room down to the exit doors and then back to the nurses station and then back to her room but was very short of breath and her oxygen saturations did drop to 72% again. The lungs are much clearer today and she is moving more air but she has very advanced COPD which is the cause of her hypoxemia. Clinically the pneumonia seemed resolved at this point but she continues to use after her options level and to the low 70s. She will need home oxygen and a portable oxygen on discharge tomorrow. Otherwise continue IV antibiotic therapy and respiratory therapy. Objective - Review of Systems Generalized/Overall Review: Reports: No Symptoms Reported, Weakness - Improved EENTM: Reports: No Symptoms Reported Respiratory: Reports: Shortness of Breath. Denies: Cough, Orthopnea, Stridor, Wheezing Cardiac: Reports: No Symptoms Reported Abdominal: Reports: No Symptoms Reported Genitourinary Symptoms: Reports: No Symptoms Reported Musculoskeletal Complaints: Reports: No Symptoms Reported Neurological: Reports: No Symptoms Reported Skin: Reports: No Symptoms Reported Endocrine: Reports: No Symptoms Reported - Vitals Vitals: Last Vital Signs Temp 36.8 C 07/08/18 07:11 Pulse 79 07/08/18 08:00 Resp 14 07/08/18 07:11 BP 125/69 07/08/18 07:11 Pulse Ox 95 07/08/18 07:11 - EKG/Xray Findings Interpretation: Reviewed by me - Exam Constitutional: Present: Alert, Oriented x3, Cooperative, Well developed, Well nourished, No distress - Except for walking and she develops respiratory distress. ENT Exam: Present: normal ENT inspection, hearing grossly normal, pharynx normal, TMs normal Neck: Present: non-tender, full range of motion Breasts: Present: Exam deferred Respiratory: Present: chest non-tender, lungs clear, decreased breath sounds, accessory muscle use, expiration (prolonged), other - Pursed lip breathing. Absent: crackles, rales, rhonchi, stridor, wheezing Cardiovascular/Chest: Present: normal peripheral pulses, regular rate, rhythm, no chest tenderness, no edema, no gallop, no JVD, no murmur, no rub Abdomen: Present: Normal bowel sounds, soft, nontender, nondistended - But complains of increased flatus., no rebound tenderness, no hepatospenomegaly /Rectal: Present: Exam deferred Extremity: Present: normal range of motion, non-tender, normal inspection, no pedal edema, no calf tenderness, normal capillary refill Skin Exam: Present: pallor - Plethoric complexion but improved from yesterday. Lymphatic: Present: no adenopathy Neurologic: Present: drip box tender II-XII nml as tested Appearance: Present: appropriate appearance, appropriate insight, neat Eye contact: Present: cooperative, good eye contact, normal speech Thoughts: Present: normal thought pattern, no apparent hallucination Assessment/Plan Plan Narrative: 1. Continue IV antibiotics 2. Continue RT 3. Walk with oxygen to see if 2 L we'll keep her above 90% and to see if it improves her ambulatory tolerance. 4. Anticipate discharge tomorrow to home. - Problems/Diagnosis (1) Acute weakness Problem: Acute (2) Urinary tract infection Problem: Acute Qualifiers: Urinary tract infection type: acute cystitis Hematuria presence: without hematuria Qualified Code(s): N30.00 - Acute cystitis without hematuria (3) Lung cyst Problem: Chronic (4) Dyspnea on minimal exertion Problem: Chronic (5) Acute exacerbation of chronic obstructive pulmonary disease (COPD) Problem: Chronic (6) Hypothyroidism Problem: Chronic Qualifiers: Hypothyroidism type: acquired (7) CKD (chronic kidney disease), stage III Problem: Chronic (8) Exercise hypoxemia Problem: Chronic
[2018-07-08] MEDS: ENOXAPARIN SODIUM 40 MG/0.4 ML SYRG SC SCH (13:32)
[2018-07-08] MEDS: AZITHROMYCIN 250 MG TABLET PO SCH (20:04)
[2018-07-08] MEDS: ZOLPIDEM TARTRATE 10 MG TABLET PO SCH (23:12)
[2018-07-09] MEDS: LEVOTHYROXINE SODIUM 150 MCG TABLET PO SCH (06:38)
--- NOTE | 2018-07-09 07:50 | DS ---
(1) Acute respiratory failure Problem: Acute Qualifiers: Respiratory failure complication: hypoxia Qualified Code(s): J96.01 - Acute respiratory failure with hypoxia (2) Pneumonia Problem: Acute Qualifiers: Pneumonia type: due to unspecified organism Laterality: right Lung location: lower lobe of lung Qualified Code(s): J18.1 - Lobar pneumonia, unspecified organism (3) Lung cyst Problem: Chronic (4) Hypothyroidism Problem: Chronic Qualifiers: Hypothyroidism type: acquired Qualified Code(s): E03.9 - Hypothyroidism, unspecified (5) Insomnia Problem: Chronic Qualifiers: Insomnia type: primary Qualified Code(s): F51.01 - Primary insomnia Description of Stay: Lynn is a 68 yo female admitted with shortness of breath and pneumonia in right lower lobe. She has chronic lung cyst that is unchanged. She was started on rocephin and azithromycin. She had acute respiratory failure with ambulation. She had hypoxia down to 70% with walking that would recover to near 100% with rest. With continued treatment she improved and was able to walk without hypoxia and is ready to be discharged to home today. She will be set up with [facility] home health for monitoring of vitals and oxygen as the pneumonia resolves and monitoring of her COPD. She will continue on azithromycin and cefdinir to complete treatment for pneumonia. She will follow up with [facility] for her chronic lung cyst. This appears unchanged to prior studies. She was also found to have a TSH of 120. She will be started on levothyroxine 150mcg daily and recheck TSH in 6 weeks. Follow up to clinic in 1 week. Today's visit was spent directly for face to face evaluation for home health. Due to pneumonia getting out of the home is physically taxing at this time. She will need fdc for vitals monitoring due to pneumonia and COPD. Procedures Performed: none Results and Findings: Pending Mircobiology Results 07/06/18 20:45 Blood Blood Culture - Preliminary NO GROWTH AFTER 48 HOURS 07/06/18 20:45 Blood Blood Culture - Preliminary NO GROWTH AFTER 48 HOURS 07/06/18 22:00 Urine,Catheterized Urine Culture - Preliminary Ruling Out Pathogen Lab Pending Results 07/06/18 20:02: Influenza Type A Ag Negative, Influenza Type B Ag Negative 07/06/18 20:45: WBC 9.0, RBC 5.50 H, Hgb 16.0, Hct 49.8 H, MCV 90.5, MCH 29.1, MCHC 32.1, RDW 15.0 H, Plt Count 286, MPV 10.6, Immature Gran % (Auto) 0.20, Immature Gran # (Auto) 0.02, Neutrophils % 77.1 H, Lymphocytes % 14.0 L, Monocytes % 6.9, Eosinophils % 1.1, Basophils % 0.7, Nucleated RBC % 0.0, Neutrophils # 7.0 H, Lymphocytes # 1.26 L, Monocytes # 0.6, Eosinophils # 0.1, Absolute Basophils 0.1 07/06/18 20:45: Sodium 142, Plasma Sodium 142, Potassium 3.4, Chloride 103, Carbon Dioxide 27.3, Anion Gap 15.1 H, BUN 11, Creatinine 1.22, Est GFR (Non-Af Amer) 47 L D, BUN/Creatinine Ratio 9.0, Random Glucose 80, Calcium 9.9, Calcium Adj for Albumin 9.5, Total Bilirubin 0.7, AST 37, ALT 11 L, Alkaline Phosphatase 148, C-Reactive Prot, Quant 0.5, Total Protein 7.7, Albumin 4.1, TSH 120.620 H, Free T4 0.18 L 07/06/18 20:45: ESR 15 07/06/18 20:45: D-Dimer 1.06 H 07/06/18 20:45: Lactic Acid, Venous 3.2 H* 07/06/18 20:56: Group A Strep Rapid Negative 07/06/18 22:04: Urine Color Pale yellow, Urine Appearance Slightly cloudy, Urine pH 7.0, Ur Specific [place] 1.010, Urine Protein Negative, Urine Glucose (UA) Negative, Urine Ketones Negative, Urine Blood 5 H, Urine Nitrate Positive H, Urine Bilirubin Negative, Urine Urobilinogen Normal, Ur Leukocyte Esterase 25 H, Urine RBC Trace, Urine WBC 5-10 H, Ur Epithelial Cells Trace, Urine Bacteria 3+ H, Urine Culture Comments Culture to follow 07/06/18 22:04: Urine Opiates Screen Negative, Barbiturate Screen Negative, Ur Phencyclidine Scrn Negative, Urine Amphetamine Negative, U Benzodiazepines Scrn Negative, Urine Cocaine Screen Negative, Urine Marijuana (THC) Negative 07/06/18 23:15: Lactic Acid, Venous 1.7 Discharge Location: Home Disposition: Home Health Service Home Health Agency: [facility] Home Health Condition: Fair Face to Face Encounter completed per [facility] Guidelines: Yes Discharge Activity: Activity as tolerated Discharge Diet: General/regular food Referrals: Acosta Brar DO [Primary Care Provider] - One Week Problem Oriented Discharge Instructions to Patient/Family: Community-Acquired Pneumonia, Adult, [id number] Additional Patient Instructions (free text): [facility] new. Please call report and fax orders upon discharge. -Please make TCM appointment unless fpc discharge. Thank you! [place] @ [phone]. Make follow up appointment with [facility]. Regarding findings on chest CT. (New patient referral.) Prescriptions (Any new or edited meds): Azithromycin [Zithromax] 250 mg PO HS #3 tab Cefdinir [Omnicef] 300 mg PO Q12H #14 cap Levothyroxine Sodium [Synthroid] 150 mcg PO DAILY@0700 #30 tab Zolpidem Tartrate [Ambien] 10 mg PO HS #30 tab Complete Home Medications List: Complete Home Medication List: Acetaminophen [Tylenol] 650 mg PO Q4H PRN tab 07/09/18 Azithromycin [Zithromax] 250 mg PO HS #3 tab 07/09/18 Cefdinir [Omnicef] 300 mg PO Q12H #14 cap 07/09/18 Levothyroxine Sodium [Synthroid] 150 mcg PO DAILY@0700 #30 tab 07/09/18 Zolpidem Tartrate [Ambien] 10 mg PO HS #30 tab 07/09/18
[2018-07-09] MEDS: FLUCONAZOLE 200 MG TABLET PO SCH (08:09)
[2018-07-09] MEDS ORDERED: ALBUTEROL SULFATE 2.5 MG/0.5 ML VIAL.NEB IH ONE (13:23)
[2018-07-09 15:12] VITALS: BP 142/84
== END 2018-07-09 15:01 | disposition home health service (06) | DRG 189 ==
LOC: ER 19:45 → MS 19:45 → OBSVTOIN 23:37 → MS 07-07 00:10
PROVIDERS: ADMIT Family Medicine; ATTEND Family Medicine
DX: J18.1 Lobar pneumonia, unspecified organism; M79.651 Pain in right thigh; N30.00 Acute cystitis without hematuria; E03.9 Hypothyroidism, unspecified; J44.1 Chronic obstructive pulmonary disease with (acute) exacerbation; Z23 Encounter for immunization; Z87.891 Personal history of nicotine dependence; J96.01 Acute respiratory failure with hypoxia; M79.652 Pain in left thigh; J98.4 Other disorders of lung; N18.3 Chronic kidney disease, stage 3 (moderate); F51.01 Primary insomnia; B96.89 Other specified bacterial agents as the cause of diseases classified elsewhere
CPT/HCPCS: 36415; 71020; 71046; 71275; 80053; 80307; 81001; 83605; 84439; 84443; 85025; 85379; 85652; 86140; 87040; 87077; 87081; 87086; 87186; 87400; 87430; 87449; 90686; 94640; 94664; 96361; 96365; 96375; 97110; 97116; 97161; 99285; Q9967

== ENCOUNTER 2018-09-16 16:54 | Observation (INO) ==
[2018-09-16] MEDS ORDERED: ALBUTEROL SULFATE/IPRATROPIUM 3 ML NEBU IH ONE ×3 (17:06→19:44)
--- NOTE | 2018-09-16 17:17 | ERNOTE ---
Integumentary HPI - Narrative Date of Service: 09/16/18 - General Presenting Symptoms: rash Time Seen by Provider: 09/16/18 16:57 Source: patient Exam Limitations: no limitations - Immun/Allergies/Home Medications Immunizations: IMMUNIZATION HX Immunizations Up to Date Yes History of Influenza Vaccine No Hx Pneumococcal Vaccination No Allergies/Adverse Reactions: Allergies Allergy/AdvReac Type Severity Reaction Status Date / Time codeine [Codeine] AdvReac Mild Vomiting Verified 07/07/18 00:42 Home Medications: HOME MEDICATIONS Levothyroxine Sodium [Synthroid] 150 mcg PO DAILY@0700 #30 tab 07/09/18 [Last Taken Unknown] Aspirin 325 mg PO DAILY 09/16/18 [Last Taken Unknown] Melatonin 5 mg PO HS 09/16/18 [Last Taken Unknown] - Pain Pain Score: 0 - History of Present Illness Narrative: The patient is a 68 year old female who presents for skin rash which has been present since just [employer]. Patient also has symptoms of productive cough, increased sputum volume and purulence as well as increased dyspnea. The patient denies pain. There are no alleviating factors. There are aggravating factors of activity. Previous treatments have included: none. The past medical history includes: hypothyroid, COPD, anxiety, osteoarthritis, Crohn's and CVA. The social history is positive for former smoker. The patient has had no ill contacts. Patient reports [employer] she pulled her pants down to the use the restroom and noticed rash to bilateral anterior thighs. Patient denies any warm items sitting on lab or exposure to heat at areas of legs. Review of Systems - Review of Systems Constitutional: Present: fatigue. Absent: fever EYE: Present: no symptoms reported ENT: Present: no symptoms reported. Absent: ear pain, nasal drainage, sore throat Respiratory: Present: shortness of breath, cough Cardiology: Present: no symptoms reported. Absent: chest pain Gastrointestinal/Abdominal: Present: no symptoms reported. Absent: nausea, vomiting, diarrhea Genitourinary: Present: no symptoms reported. Absent: dysuria, decreased urinary output Musculoskeletal: Present: no symptoms reported Skin: Present: rash, other - denies itching or pain Neurological: Present: no symptoms reported All Other Systems: All systems neg except as marked Medical History (Updated 07/09/18 @ 08:09 by Acosta Brar DO) Anxiety COPD (chronic obstructive pulmonary disease) Hypothyroidism Lung abscess Osteoarthritis Crohns disease Onset Date: Unknown History of insomnia Onset Date: 11/07/15 History of cerebrovascular accident in adulthood Onset Date: ~1999 History of pneumonia Onset Date: 06/24/12 Surgical History: Surgical History (Updated 07/09/18 @ 08:09 by Acosta Brar DO) History of cataract surgery History of cholecystectomy History of ovarian cystectomy History of thyroid surgery History of appendectomy Onset Date: ~1969 History of bronchoscopy Onset Date: 03/13/152011 Dr Becerril 2015 [place]-benign cellular elements. No pathogens History of colonoscopy Onset Date: 02/12/11 Tinguely -tubular adenoma History of hysterectomy Onset Date: ~1979 1979' complete History of salpingo-oophorectomy Onset Date: ~1998 Dr Dolan bilateral History of tonsillectomy Onset Date: Unknown Family History: Family History (Updated 01/16/18 @ 11:22 by Mirna Faustin [facility]) Father , age 60 Myocardial infarction Mother , age 62 Diabetes Heart disease Myocardial infarction Social History: Preferred Language Yoruba Do you have any advent or No cultural preference? Smoking Status Former smoker Abuse History No History of abuse Psych History Hx of Depression Alcohol Use none Drug Use none (Last Updated 07/30/18 @ 11:10 by Acosta Brar DO) No Social History Section defined Physical Exam - Physical Exam General Appearance: Present: wd/wn, alert, mild distress Head Exam: Present: normal inspection Eye Exam: Normal inspection: bilateral Ears, Nose, Throat: Present: normal ENT inspection, normal pharynx Neck: Present: normal inspection, nontender Respiratory: Present: respiratory distress - mild, pursed lip breathing, accessory muscle use, decreased breath sounds Cardiovascular/Chest: Present: no murmur, tachycardia Neurological Exam: Present: alert, oriented, normal mood/affect Skin Exam: Present: warm/dry, skin rash - erythematous reticular macular lesions to bilateral anterior thigh Progress - Date and Time Seen: Date and Time: 09/16/18 19:59 Case discussed with . Will admit for COPD exacerbation, hypothyroid and elevated ddimer with plan of VQ scan in am. Will adjust levothyroxine 200mcg daily, administer Rocephin and azithromycin. 09/16/18 20:02 Discoloration which patient originally presented with to bilateral anterior thighs resolved to right thigh and decreased to left thigh. Patient states she has been taking her levothyroxine daily as directed. - Results and Orders Patient's Lab Results:: I have reviewed the patient's lab results. - Vital Signs Patient's Vital Signs:: I have reviewed the patient's vital signs. Vital Signs: Vital Signs 09/16/18 16:54 Temperature 37.3 C Pulse Rate 134 H Blood Pressure 151/73 H - EKG EKG #1 EKG: NSR - tachycardia, nonspecific ST T wave changes EKG read: Reviewed by me - X-Ray X-Ray #1 X-Ray: chest Interpretation: Reviewed by me X-ray Comments: Hyperinflation, no acute cardiopulmonary abnormality. Chronic right lower lung cyst with air fluid level unchanged from previous exam 07/06/18. - Progress/Reassessment Chief Complaint: Rash Departure Clinical Impression: COPD with exacerbation, Elevated d-dimer Hypothyroidism Qualifiers: Hypothyroidism type: unspecified Qualified Code(s): E03.9 - Hypothyroidism, unspecified - Departure Disposition: Still a patient Condition: Good
[2018-09-16 17:24] LABS: Hematocrit 46.9 % (37.0-47.0); Hemoglobin 14.9 gm/dL (12.5-16.0); Mean Cell Volume 93.1 fl (78-100); Mean Corpuscular Hemoglobin 29.6 pg (27-31); Mean Corpuscular Hgb Conc 31.8 g/dl (32-36); Mean Platelet Volume 10.5 fl (8-12.5); Neutrophil # 10.4 K/mm3 (1.3-6.0); Platelet Count 430 K/mm3 (150-450); Red Blood Count 5.04 M/mm3 (4.2-5.4); Red Cell Distribution Width 13.5 % (11.5-14.0); White Blood Count 13.5 K/mm3 (4.0-10.5)
[2018-09-16 17:44] LABS: Albumin * 3.8 gm/dl (3.4-5.0); Anion Gap 14.4 mmol/L (6.8-13.8); BUN/Creatinine Ratio 15.6 (9.0-21.6); Bilirubin, Total 0.4 mg/dL (0.0-1.1); Ca. Corrected For Albumin 9.3 mg/dL (8.4-10.2); Calcium * 9.5 mg/dL (7.9-10.9); Carbon Dioxide 25.4 mmol/L (24-32.6); Potassium 3.8 mmol/L (3.4-4.6); Total Protein 7.3 gm/dL (6.2-8.2)
[2018-09-16] MEDS ORDERED: METHYLPREDNISOLONE SOD SUCC/PF 125 MG/2 ML VIAL IV ONE (17:49)
[2018-09-16 18:04] LABS: Urine Bilirubin 1 mg/dl (NEGATIVE); Urine Blood Negative /ul (NEGATIVE); Urine Ketone 5 mg/dL (NEGATIVE); Urine Nitrite Negative (NEGATIVE); Urine Protein 100 mg/dL (NEGATIVE); Urine Specific Gravity >=1.030 SP.GR. (1.005-1.010); Urine Urobilinogen Normal (NORMAL); Urine pH 5.5 pH (5.0-7.0)
[2018-09-16 18:05] LABS: Urine Appearance Clear (CLEAR); Urine Bacteria 2+; Urine Color Yellow; Urine Hyaline Cast 0-5 /LPF; Urine Mucus Few - 1+; Urine RBC 0-5 /hpf (0-5)
[2018-09-16] MEDS ORDERED: AZITHROMYCIN 250 MG TABLET PO ONE (19:57)
[2018-09-16] MEDS ORDERED: cefTRIAXone SODIUM 1,000 MG/100 ML BAG IV ONE (19:57)
[2018-09-16] MEDS ORDERED: LEVALBUTEROL HCL 1.25 MG/3 ML AMPUL IH SCH (20:30)
[2018-09-16] MEDS ORDERED: LEVALBUTEROL HCL 1.25 MG/3 ML AMPUL IH ONE (22:21)
[2018-09-17] MEDS: METHYLPREDNISOLONE SOD SUCC/PF 40 MG/ML VIAL IV SCH ×3 (00:56→11:45)
[2018-09-17] MEDS: LEVALBUTEROL HCL 1.25 MG/3 ML AMPUL IH SCH ×3 (06:04→13:40)
[2018-09-17] MEDS ORDERED: LEVOTHYROXINE SODIUM 175 MCG TABLET PO SCH (07:00)
[2018-09-17] MEDS ORDERED: LEVOTHYROXINE SODIUM 100 MCG TABLET PO SCH (07:00)
[2018-09-17] MEDS ORDERED: 0.5 NORMAL SALINE 1,000 ML IV PRN (08:41)
[2018-09-17] MEDS ORDERED: ASPIRIN 325 MG TABLET.DR PO SCH (09:00)
--- NOTE | 2018-09-17 15:55 | HP ---
Chief Complaint - Chief Complaint Date of Service: 09/17/18 Time of Service: 08:30 Chief Complaint: Rash History of Present Illness: Lynn is a 68 yo female with COPD. She presented to the [facility] ER for evaluation of a rash. However in the ER she was notably dyspneic. She reports increased cough, shortness of breath, and chest tightness. No fever, chills, nausea, or vomiting. No change in medication, diet, or activity. Medical History (Updated 09/17/18 @ 15:55 by Acosta Brar DO) Anxiety COPD (chronic obstructive pulmonary disease) Hypothyroidism Lung abscess Osteoarthritis Crohns disease Onset Date: Unknown History of insomnia Onset Date: 11/07/15 History of cerebrovascular accident in adulthood Onset Date: ~1999 History of pneumonia Onset Date: 06/24/12 Surgical History: Surgical History (Updated 07/09/18 @ 08:09 by Acosta Brar DO) History of cataract surgery History of cholecystectomy History of ovarian cystectomy History of thyroid surgery History of appendectomy Onset Date: ~1969 History of bronchoscopy Onset Date: 03/13/152011 Dr Jone Saldana [place]-benign cellular elements. No pathogens History of colonoscopy Onset Date: 02/12/11 Tinguely -tubular adenoma History of hysterectomy Onset Date: ~1979 1979' complete History of salpingo-oophorectomy Onset Date: ~1998 Dr Dolan bilateral History of tonsillectomy Onset Date: Unknown Family History: Family History (Updated 01/16/18 @ 11:22 by Mirna Faustin [facility]) Father , age 60 Myocardial infarction Mother , age 62 Myocardial infarction Heart disease Diabetes Social History: Patient Lives/Resources Home Utilized Occupation retired Preferred Language Trinidadian Do you have any confucianist or No cultural preference? Smoking Status Former smoker Have you smoked in the past 12 No months Do you dip or chew tobacco No Abuse History No History of abuse Psych History Hx of Depression Alcohol Use none Drug Use none (Last Updated 07/30/18 @ 11:10 by Acosta Brar DO) No Social History Section defined Review Of Systems (GEN) - Review of Systems Generalized/Overall Review: Absent: Weakness, Chills, Fever, Fatigue EENTM: Present: No Symptoms Reported Respiratory: Present: Cough, Shortness of Breath. Absent: Wheezing Cardiac: Absent: Chest Pain, Edema, Palpitations Abdominal: Absent: Nausea, Vomiting Genitourinary: Present: No Symptoms Reported Musculoskeletal: Present: No Symptoms Reported Neurological: Present: No Symptoms Reported Skin: Present: Rash Endocrine: Present: No Symptoms Reported Immunizations: IMMUNIZATION HX Immunizations Up to Date Yes History of Influenza Vaccine No Hx Pneumococcal Vaccination No Allergies/Adverse Reactions: Allergies Allergy/AdvReac Type Severity Reaction Status Date / Time codeine [Codeine] AdvReac Mild Vomiting Verified 07/07/18 00:42 Home Medications: HOME MEDICATIONS Levothyroxine Sodium [Synthroid] 150 mcg PO DAILY@0700 #30 tab 07/09/18 [Last Taken Unknown] Aspirin 325 mg PO HS 09/16/18 [Last Taken 09/15/18 23:30] Melatonin 5 mg PO HS 09/16/18 [Last Taken 09/15/18 23:30] Azithromycin [Zithromax] 250 mg PO DAILY #4 tab 09/17/18 [Last Taken Unknown] predniSONE [Prednisone] 2 tab PO DAILY #25 tab 09/17/18 [Last Taken Unknown] Exam - Exam Vital Signs: Vital Signs - Last Taken Temp 36.7 C 09/17/18 14:53 Pulse 84 09/17/18 14:53 Resp 18 09/17/18 14:53 BP 137/71 09/17/18 14:53 Pulse Ox 94 09/17/18 14:53 Constitutional: Present: Alert, Oriented x3, Cooperative ENT Exam: Present: hearing grossly normal Eye Exam: bilateral eye: normal inspection Respiratory: Present: decreased breath sounds, wheezing Cardiovascular/Chest: Present: regular rate, rhythm, no murmur Peripheral Pulses: radial (R): 2+, radial (L): 2+ Abdomen: Present: Normal bowel sounds, soft, nontender, nondistended Skin Exam: Present: normal color, warm/dry, no cyanosis Lymphatic: Present: no adenopathy Diagnostic Studies: Abnormal Lab Results 09/16/18 09/16/18 09/16/18 Range/Units 17:20 17:20 17:48 WBC 13.5 H (4.0-10.5) K/mm3 MCHC 31.8 L (32-36) g/dl Immature Gran # (Auto) 0.06 H (0.000-0.0310) K/mm3 Neutrophils % 77.0 H (42-75.0) % Lymphocytes % 13.8 L (20-51) % Neutrophils # 10.4 H (1.3-6.0) K/mm3 D-Dimer (0.19-0.49) ug/mL pO2 (83.0-108.0) mmHg Total CO2 (19.0-24.0) mmol/L ABG O2 Sat (Measured) (94.0-98.0) % Anion Gap 14.4 H (6.8-13.8) mmol/L BUN 28 H D (3-23) mg/dL Creatinine 1.80 H D (0.4-1.4) mg/dL Est GFR (Non-Af Amer) 30 L D (60-130) mL/min Random Glucose 131 H (70-110) mg/dL ALT 15 L (19-67) U/L TSH (0.358-3.74) uIU/mL Urine Protein 100 H (NEGATIVE) mg/dL Urine Bilirubin 1 H (NEGATIVE) mg/dl Prot Sulfosalicylic Acd 2+ H (0) mg/dL Ur Leukocyte Esterase 25 H (NEGATIVE) /ul Urine WBC 5-10 H (0-5) /hpf Urine Bacteria 2+ H (NONE) Hyaline Casts 0-5 H (NONE) /LPF Urine Mucus Few - 1+ H (NONE) 09/16/18 09/16/18 09/16/18 Range/Units 18:00 18:00 19:43 WBC (4.0-10.5) K/mm3 MCHC (32-36) g/dl Immature Gran # (Auto) (0.000-0.0310) K/mm3 Neutrophils % (42-75.0) % Lymphocytes % (20-51) % Neutrophils # (1.3-6.0) K/mm3 D-Dimer 1.02 H (0.19-0.49) ug/mL pO2 62.4 L (83.0-108.0) mmHg Total CO2 24.4 H (19.0-24.0) mmol/L ABG O2 Sat (Measured) 93.0 L (94.0-98.0) % Anion Gap (6.8-13.8) mmol/L BUN (3-23) mg/dL Creatinine (0.4-1.4) mg/dL Est GFR (Non-Af Amer) (60-130) mL/min Random Glucose (70-110) mg/dL ALT (19-67) U/L TSH 163.330 H (0.358-3.74) uIU/mL Urine Protein (NEGATIVE) mg/dL Urine Bilirubin (NEGATIVE) mg/dl Prot Sulfosalicylic Acd (0) mg/dL Ur Leukocyte Esterase (NEGATIVE) /ul Urine WBC (0-5) /hpf Urine Bacteria (NONE) Hyaline Casts (NONE) /LPF Urine Mucus (NONE) Microbiology 09/16/18 17:48 Urine Culture - Preliminary Urine,Clean Catch No Growth Laboratory Results WBC 13.5 K/mm3 (4.0-10.5) H 09/16/18 17:20 RBC 5.04 M/mm3 (4.2-5.4) 09/16/18 17:20 Hgb 14.9 gm/dL (12.5-16.0) 09/16/18 17:20 Hct 46.9 % (37.0-47.0) 09/16/18 17:20 MCV 93.1 fl (78-100) 09/16/18 17:20 MCH 29.6 pg (27-31) 09/16/18 17:20 MCHC 31.8 g/dl (32-36) L 09/16/18 17:20 RDW 13.5 % (11.5-14.0) 09/16/18 17:20 Plt Count 430 K/mm3 (150-450) 09/16/18 17:20 MPV 10.5 fl (8-12.5) 09/16/18 17:20 Immature Gran % (Auto) 0.40 % (0.001-0.429) 09/16/18 17:20 Immature Gran # (Auto) 0.06 K/mm3 (0.000-0.0310) H 09/16/18 17:20 77.0 % (42-75.0) H 09/16/18 17:20 13.8 % (20-51) L 09/16/18 17:20 6.4 % (0.0-9) 09/16/18 17:20 1.7 % (0.0-3.0) 09/16/18 17:20 0.7 % (0.0-1.0) 09/16/18 17:20 Nucleated RBC % 0.0 k/mm3 (0-1) 09/16/18 17:20 10.4 K/mm3 (1.3-6.0) H 09/16/18 17:20 1.87 k/mm3 (1.5-3.5) 09/16/18 17:20 0.9 k/mm3 (0.0-1.0) 09/16/18 17:20 0.2 k/mm3 (0.0-0.7) 09/16/18 17:20 Absolute Basophils 0.1 k/mm3 (0.0-0.1) 09/16/18 17:20 1.02 ug/mL (0.19-0.49) H 09/16/18 18:00 pCO2 34.5 mmHg (32.0-45.0) 09/16/18 19:43 pO2 62.4 mmHg (83.0-108.0) L 09/16/18 19:43 HCO3 23.4 mmol/L (21.0-28.0) 09/16/18 19:43 Total CO2 24.4 mmol/L (19.0-24.0) H 09/16/18 19:43 Base Excess 0.0 mmol/L (-2.0-3.0) 09/16/18 19:43 ABG pH 7.45 (7.35-7.45) 09/16/18 19:43 ABG O2 Sat (Measured) 93.0 % (94.0-98.0) L 09/16/18 19:43 Sodium 139 mmol/L (132-142) 09/16/18 17:20 139 mmol/L (130-142) 09/16/18 17:20 Potassium 3.8 mmol/L (3.4-4.6) 09/16/18 17:20 Chloride 103 mmol/L (97-106) 09/16/18 17:20 Carbon Dioxide 25.4 mmol/L (24-32.6) 09/16/18 17:20 14.4 mmol/L (6.8-13.8) H 09/16/18 17:20 BUN 28 mg/dL (3-23) H D 09/16/18 17:20 1.80 mg/dL (0.4-1.4) H D 09/16/18 17:20 Est GFR (Non-Af Amer) 30 mL/min (60-130) L D 09/16/18 17:20 15.6 (9.0-21.6) 09/16/18 17:20 131 mg/dL (70-110) H 09/16/18 17:20 Calcium 9.5 mg/dL (7.9-10.9) 09/16/18 17:20 Calcium Adj for Albumin 9.3 mg/dL (8.4-10.2) 09/16/18 17:20 0.4 mg/dL (0.0-1.1) 09/16/18 17:20 AST 18 U/L (0-48) 09/16/18 17:20 ALT 15 U/L (19-67) L 09/16/18 17:20 148 U/L (50-170) 09/16/18 17:20 Less than 0.017 ng/mL (0.00-0.10) 09/16/18 17:18 7.3 gm/dL (6.2-8.2) 09/16/18 17:20 3.8 gm/dl (3.4-5.0) 09/16/18 17:20 TSH 163.330 uIU/mL (0.358-3.74) H 09/16/18 18:00 Yellow 09/16/18 17:48 Clear (CLEAR) 09/16/18 17:48 5.5 pH (5.0-7.0) 09/16/18 17:48 Ur Specific [place] >=1.030 SP.GR. (1.005-1.010) 09/16/18 17:48 100 mg/dL (NEGATIVE) H 09/16/18 17:48 Negative mg/dL (NEGATIVE) 09/16/18 17:48 5 mg/dL (NEGATIVE) 09/16/18 17:48 Negative /ul (NEGATIVE) 09/16/18 17:48 Negative (NEGATIVE) 09/16/18 17:48 1 mg/dl (NEGATIVE) H 09/16/18 17:48 Negative (NEGATIVE) 09/16/18 17:48 Prot Sulfosalicylic Acd 2+ mg/dL (0) H 09/16/18 17:48 Normal EU/dl (NORMAL) 09/16/18 17:48 Ur Leukocyte Esterase 25 /ul (NEGATIVE) H 09/16/18 17:48 0-5 /hpf (0-5) 09/16/18 17:48 5-10 /hpf (0-5) H 09/16/18 17:48 Ur Epithelial Cells 0-5 /hpf (0-5) 09/16/18 17:48 2+ (NONE) H 09/16/18 17:48 Hyaline Casts 0-5 /LPF (NONE) H 09/16/18 17:48 Few - 1+ (NONE) H 09/16/18 17:48 Culture to follow 09/16/18 17:48 Assessment/Plan - Narrative Narrative: Lynn is a 68 yo female with known COPD. She presented to the ER for a rash but was then notably short of breath. She was given steroids and breathing treatments and breathing is better and rash has disappeared. The rash was likely allergy related and resolved with the steroids. Breathing is improved, will continue breathing treatments and nebulizers. Will admit to observation and monitor respiratory status. If she continues to improve will plan to discharge to home. - Assessment/Plan (1) Acute exacerbation of chronic obstructive pulmonary disease (COPD) Problem: Chronic (2) Rash Problem: Acute
--- NOTE | 2018-09-17 16:35 | DS ---
(1) COPD with acute exacerbation Problem: Acute Description of Stay: Lynn is a 68 yo female that reported shortness of breath in the ER. She has known COPD. Chest xray showed no pneumonia, but she was notably short of breath and was given IV solumedrol, azithromycin, and breathing treatments. She was still short of breath and recommend to be admitted to observation for continued treatment and monitoring. She was continued on breathing treatments and steroids and breathing gradually improved. She had also presented to the ER with a rash but this resolved by morning. She is feeling better and able for home discharge. Will give her a tapering dose of prednisone and complete her course of azithromycin. Procedures Performed: none Results and Findings: Pending Mircobiology Results 09/16/18 17:48 Urine,Clean Catch Urine Culture - Preliminary No Growth Lab Pending Results 09/16/18 17:18: Troponin I Less than 0.017 09/16/18 17:20: WBC 13.5 H, RBC 5.04, Hgb 14.9, Hct 46.9, MCV 93.1, MCH 29.6, MCHC 31.8 L, RDW 13.5, Plt Count 430, MPV 10.5, Immature Gran % (Auto) 0.40, Immature Gran # (Auto) 0.06 H, Neutrophils % 77.0 H, Lymphocytes % 13.8 L, Monocytes % 6.4, Eosinophils % 1.7, Basophils % 0.7, Nucleated RBC % 0.0, Neutrophils # 10.4 H, Lymphocytes # 1.87, Monocytes # 0.9, Eosinophils # 0.2, Absolute Basophils 0.1 09/16/18 17:20: Sodium 139, Plasma Sodium 139, Potassium 3.8, Chloride 103, Carbon Dioxide 25.4, Anion Gap 14.4 H, BUN 28 H D, Creatinine 1.80 H D, Est GFR (Non-Af Amer) 30 L D, BUN/Creatinine Ratio 15.6, Random Glucose 131 H, Calcium 9.5, Calcium Adj for Albumin 9.3, Total Bilirubin 0.4, AST 18, ALT 15 L, Alkaline Phosphatase 148, Total Protein 7.3, Albumin 3.8 09/16/18 17:48: Urine Color Yellow, Urine Appearance Clear, Urine pH 5.5, Ur Specific [place] >=1.030, Urine Protein 100 H, Urine Glucose (UA) Negative, Urine Ketones 5, Urine Blood Negative, Urine Nitrate Negative, Urine Bilirubin 1 H, Urine Ictotest Negative, Prot Sulfosalicylic Acd 2+ H, Urine Urobilinogen Normal, Ur Leukocyte Esterase 25 H, Urine RBC 0-5, Urine WBC 5-10 H, Ur Epithelial Cells 0-5, Urine Bacteria 2+ H, Hyaline Casts 0-5 H, Urine Mucus Few - 1+ H, Urine Culture Comments Culture to follow 09/16/18 18:00: TSH 163.330 H 09/16/18 18:00: D-Dimer 1.02 H 09/16/18 19:43: pCO2 34.5, pO2 62.4 L, HCO3 23.4, Total CO2 24.4 H, Base Excess 0.0, ABG pH 7.45, ABG O2 Sat (Measured) 93.0 L Discharge Location: Home Disposition: Home self-care Condition: Good Discharge Activity: Activity as tolerated Discharge Diet: General/regular food Referrals: Acosta Brar DO [Primary Care Provider] - One Week Problem Oriented Discharge Instructions to Patient/Family: Chronic Obstructive Pulmonary Disease Exacerbation, [id number] Additional Patient Instructions (free text): -Please make TCM appointment unless half-way discharge. Thank you! [place] @ [phone]. Prescriptions (Any new or edited meds): predniSONE [Prednisone] 2 tab PO DAILY #25 tab Azithromycin [Zithromax] 250 mg PO DAILY #4 tab Complete Home Medications List: Complete Home Medication List: Levothyroxine Sodium [Synthroid] 150 mcg PO DAILY@0700 #30 tab 07/09/18 Aspirin 325 mg PO HS 09/16/18 Melatonin 5 mg PO HS 09/16/18 Azithromycin [Zithromax] 250 mg PO DAILY #4 tab 09/17/18 predniSONE [Prednisone] 2 tab PO DAILY #25 tab 09/17/18
[2018-09-17 17:24] VITALS: BP 154/82
[2018-09-17] MEDS ORDERED: MELATONIN 3,000 MCG TABLET PO SCH (21:00)
== END 2018-09-17 17:30 | disposition home or self-care (01) ==
LOC: ER 16:54 → MS 16:54
PROVIDERS: ADMIT Internal Medicine; ATTEND Family Medicine
CPT/HCPCS: 36415; 36600; 71020; 71046; 80053; 81001; 82803; 84443; 84484; 85025; 85379; 87086; 93005; 94640; 94664; 94760; 96361; 96365; 96375; 99285; G0378

== ENCOUNTER 2019-03-13 00:37 | Inpatient (IN) ==
[2019-03-13] MEDS ORDERED: ALBUTEROL SULFATE/IPRATROPIUM 3 ML NEBU IH ONE (01:26)
[2019-03-13] MEDS ORDERED: ACETAMINOPHEN 325 MG TABLET PO ONE (01:32)
--- NOTE | 2019-03-13 01:35 | ERNOTE ---
Medical Problem HPI - Narrative Date of Service: 03/13/19 - General Chief Complaint: General Assessment Time Seen by Provider: 03/13/19 00:55 Source: patient, family - Immun/Allergies/Home Medications Immunizations: IMMUNIZATION HX Immunizations Up to Date Yes History of Influenza Vaccine Yes Hx Pneumococcal Vaccination No Allergies/Adverse Reactions: Allergies codeine [Codeine] Adverse Reaction (Mild, Verified 03/02/19 17:41) Vomiting Home Medications: HOME MEDICATIONS Aspirin 325 mg PO HS 09/16/18 [Last Taken 09/15/18 23:30] zolpidem 10 mg tablet 10 mg PO HS #30 tab 11/11/18 [Last Taken Unknown] albuterol sulfate 2.5 mg INHALATION Q4H PRN #25 vial.neb 02/25/19 [Last Taken Unknown] baclofen 10 mg tablet 5 mg PO TID #90 tab 02/25/19 [Last Taken Unknown] indomethacin 25 mg capsule 25 mg PO TID #90 cap 02/25/19 [Last Taken Unknown] levothyroxine 150 mcg tablet 150 mcg PO DAILY #30 tab 02/25/19 [Last Taken Unknown] Cyclobenzaprine HCl [Flexeril] 10 mg PO BID PRN #20 tab 03/02/19 [Last Taken Unknown] - History of Present History Narrative: Patient is a 68 years old female who present brought in by ambulance for altered mental status, increased confusion, and weakness that started 3 days ago. Patient lives alone and her daughter today contacted her and she had an increase in her confusion so she went to visit her and called the ambulance to bring her to the ED to be evaluated. Patient had a stroke 8 years ago, without residual deficit. Daughter reports she did not see her mother this confuse since she had her stroke 8 years ago. Patient is talking to the space, appeared to be hallucinating. She lives alone, and denies drinking alcohol or using drug. Date (Duration): 03/10/19 Timing: getting worse Review of Systems - Review of Systems Constitutional: Present: fever, chills, weakness, decreased activity level EYE: Absent: eye discharge, blurred vision ENT: Absent: nose congestion Respiratory: Present: shortness of breath, cough Cardiology: Absent: chest pain Gastrointestinal/Abdominal: Absent: nausea, vomiting, abdominal pain Neurological: Present: other - difficult to obain accurately due to her confusion Hematologic/Lymphatic: Absent: easy bruising Psych: Present: other - visual hallucination Medical History (Last Reviewed 03/13/19 @ 00:47 by Courtney Lucio RN) Anxiety COPD (chronic obstructive pulmonary disease) Hypothyroidism Lung abscess Osteoarthritis Crohns disease Onset Date: Unknown History of insomnia Onset Date: 11/07/15 History of cerebrovascular accident in adulthood Onset Date: ~1999 History of pneumonia Onset Date: 06/24/12 Surgical History: Surgical History (Last Reviewed 03/13/19 @ 00:47 by Courtney Lucio RN) History of cataract surgery History of cholecystectomy History of ovarian cystectomy History of thyroid surgery History of appendectomy Onset Date: ~1969 History of bronchoscopy Onset Date: 03/13/152011 Dr Becerril 2015 Bagan-benign cellular elements. No pathogens History of colonoscopy Onset Date: 02/12/11 Tinguely -tubular adenoma History of hysterectomy Onset Date: ~1979 complete History of salpingo-oophorectomy Onset Date: ~1998 Dr Dolan bilateral History of tonsillectomy Onset Date: Unknown Family History: Family History (Last Reviewed 03/13/19 @ 00:47 by Courtney Lucio RN) Father , age 60 Myocardial infarction Mother , age 62 Myocardial infarction Heart disease Diabetes Social History: (Last Reviewed 03/13/19 @ 00:47 by Courtney Lucio RN) Social History: Marital status: number of children: 2 current occupational status: disabled Service: No Tobacco: Smoking Status: Former smoker Alcohol: alcohol intake: former Substance Use: substance use type: does not use Dietary Habits: caffeine: Yes Physical Exam - Physical Exam General Appearance: Present: moderate distress Head Exam: Present: normal inspection Eye Exam: Normal inspection: bilateral Ears, Nose, Throat: Present: normal ENT inspection Neck: Present: normal inspection Respiratory: Present: normal breath sounds, other - tachypneic Cardiovascular/Chest: Present: regular rate, rhythm, no murmur, other - tachycardic Peripheral Pulses: N=norm/S=strong/W=weak/B=bound/A=absent: Radial (R): Normal, Radial (L): Normal, Dorsalis-pedis (R): Normal, Dorsalis-pedis (L): Normal Gastrointestinal/Abdominal: Present: normal bowel sounds Back Exam: Present: normal inspection Extremity Exam: Present: normal inspection Neurological Exam: Present: disoriented to time, disoriented to place, disoriented to situation, other - Auditory and visual hallucination Skin Exam: Present: normal color Lymphatic Exam: Present: no adenopathy Progress - Results and Orders Patient's Lab Results:: I have reviewed the patient's lab results. - Vital Signs Patient's Vital Signs:: I have reviewed the patient's vital signs. Vital Signs: Vital Signs 03/13/19 00:42 Temperature 38.3 C H Pulse Rate 124 H Respiratory Rate 40 H Blood Pressure 161/65 H O2 Sat by Pulse Oximetry 92 L - EKG EKG #1 EKG read: Interp. by me EKG Comments: Sinus tachycardia, ST depression in in V4 EKG #2 EKG: NSR EKG read: Interp. by me EKG Comments: rate 91, no more St depression seen - X-Ray X-Ray #1 X-Ray: large right lower lobe cavitary lesion with increased fluid in it. - Progress/Reassessment Chief Complaint: General Assessment Progress Note-Subjective: 03/13/19 04:28 - Patient is tachypneic, tachycardic, requiring oxygen and d- dimer is elevated, I ordered a CTA chest 03/13/19 7:00 - patient received IV fluid and acetaminphen which improved her tachycardia, now rate is 91 03/13/19 10:46 - Transfer of Care Expected Disposition: Admit Plan - Plan Plan: Patient is a 68 yo f brought in by daughter for increase confusion and weakness for 3 days. On arrival patient was confused, febrile, tachycardic, tachypneic, and requiring oxgen to maintiain oxygen saturation. Sepsis work up was initiated and a CT of head done which ruled out acute cranial process. Her labs revealed a critically low potassium of 2.5, she was given 40 meq of KChl per oral ad 40 meq IV. Her xray showed a right lung cavitary lesion that appears to be chronic as it was seen on prior imaging back 12 years ago. A CTA chest was ordered considering her symptoms, a positive d-dimer, CT ruled out PE, and showed an enlargement of her cavitary lesions compared to last two years imaging. Patient and daughter reports her cavitary lesion was drained at [facility] 6 years ago. I discussed the case with Dr Brar who accepted admission. Patient received a dose of Ceftriaxone in the ED. Departure Clinical Impression: Hypokalemia, Cavitary lesion of lung, Hypoxia - Departure Disposition: Still a patient Condition: Fair
[2019-03-13] MEDS: NORMAL SALINE 1,000 ML IV SCH ×5 (01:37→18:21)
[2019-03-13 01:42] LABS: Hematocrit 44.6 % (37.0-47.0); Hemoglobin 13.9 gm/dL (12.5-16.0); Mean Cell Volume 92.5 fl (78-100); Mean Corpuscular Hemoglobin 28.8 pg (27-31); Mean Corpuscular Hgb Conc 31.2 g/dl (32-36); Mean Platelet Volume 10.6 fl (8-12.5); Platelet Count 334 K/mm3 (150-450); Red Blood Count 4.82 M/mm3 (4.2-5.4); Red Cell Distribution Width 13.3 % (11.5-14.0); White Blood Count 9.8 K/mm3 (4.0-10.5)
[2019-03-13 01:59] LABS: Total Cells Counted 100
[2019-03-13 02:02] LABS: Albumin * 2.6 gm/dl (3.4-5.0); Anion Gap 6.1 mmol/L (6.8-13.8); BUN/Creatinine Ratio 18.3 (9.0-21.6); Bilirubin, Total 0.6 mg/dL (0.0-1.1); Ca. Corrected For Albumin 9.2 mg/dL (8.4-10.2); Calcium * 8.4 mg/dL (7.9-10.9); Carbon Dioxide 39.4 mmol/L (24-32.6); Total Protein 6.4 gm/dL (6.2-8.2)
[2019-03-13 02:04] LABS: Atypical (Reactive) Lymph 4 % (0-2); Eosinophil 3 % (0-3); Immature Granulocyte 1 (0-1); Lymphocyte 12 % (20-51); Monocyte 2 % (0-9); Neutrophil 78 % (42-75); Neutrophil # 7.6 K/mm3 (1.3-6.0); Platelet Estimate Normal (NORMAL)
[2019-03-13 02:05] LABS: Dohle Bodies Trace; Toxic Granulation Trace
[2019-03-13 02:07] LABS: Potassium 2.5 mmol/L (3.4-4.6)
[2019-03-13] MEDS ORDERED: POTASSIUM CHLORIDE 20 MEQ TABLET.SA PO ONE (02:54)
[2019-03-13] MEDS ORDERED: POTASSIUM CHLORIDE 40 MEQ in NORMAL SALINE 1,000 ML IV SCH (03:00)
[2019-03-13] MEDS ORDERED: cefTRIAXone SODIUM 1,000 MG/100 ML BAG IV ONE (03:13)
[2019-03-13 03:25] LABS: Urine Bilirubin 1 mg/dl (NEGATIVE); Urine Blood Negative /ul (NEGATIVE); Urine Ketone Negative (NEGATIVE); Urine Nitrite Negative (NEGATIVE); Urine Protein 15 mg/dL (NEGATIVE); Urine Specific Gravity 1.025 SP.GR. (1.005-1.010); Urine Urobilinogen Normal (NORMAL)
[2019-03-13 03:31] LABS: Urine Appearance Slightly Cloudy (CLEAR); Urine Bacteria TRACE; Urine Color Dark Yellow; Urine RBC None Seen /hpf (0-5); Urine WBC TRACE /hpf (0-5)
[2019-03-13] MEDS ORDERED: NORMAL SALINE 1,000 ML IV ONE (06:36)
[2019-03-13 07:15] LABS: Cocaine Ur Negative (NEGATIVE); Urine Barbiturate Negative (NEGATIVE); Urine Benzodiazepines Negative (NEGATIVE); Urine Opiates Negative (NEGATIVE); Urine PCP Negative (NEGATIVE); Urine THC Negative (NEGATIVE)
[2019-03-13 15:14] LABS: Albumin * 2.4 gm/dl (3.4-5.0); Anion Gap 9.1 mmol/L (6.8-13.8); BUN/Creatinine Ratio 20.3 (9.0-21.6); Bilirubin, Total 0.3 mg/dL (0.0-1.1); Ca. Corrected For Albumin 8.9 mg/dL (8.4-10.2); Calcium * 7.9 mg/dL (7.9-10.9); Carbon Dioxide 31.8 mmol/L (24-32.6); Potassium 3.9 mmol/L (3.4-4.6); Total Protein 5.9 gm/dL (6.2-8.2)
--- NOTE | 2019-03-13 23:39 | HP ---
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 She had this drained many years ago but it reoccurred and she has had this present for the last several years. She presents to the ER today with worsening confusion, shortness of breath, and cough. The daughter reports this has been going on for the last two months but significantly worse today. The daughter reports Lynn will speak and it sounds mumbled and she cant understand her. She reports worsening shortness of breath and cough. CT in the ER showed worsening lung cyst, potentially abscess. Patient declined transfer to [facility] for consideration of surgical intervention. 1. Negative for acute pulmonary thromboembolism. 2. Suboptimal opacification of the thoracic aorta for angiographic evaluation without obvious acute findings. 3. Previously seen right lower lobe basal segmental cyst like lesion, demonstrates air-fluid level. Correlate clinically for superimposed infection within a chronic bullae or parenchymal cyst. 4. Peripheral bronchial wall thickening, scattered tree-in-bud opacities of both lungs as above. Correlate clinically for acute or chronic bronchiolitis. Other considerations also include endobronchial spread tumor. Follow-up is recommended in 3-6 months to document resolution/stability. 4. Fluid within the bronchi as above. Potential mucus plugging of the left lower lobe. Head CT was negative for acute change. There was a tissue density in nasopharyngeal area that radiology recommended to be evaluated by ENT. Medical History (Last Reviewed 03/13/19 @ 12:07 by Caro Rosales RN) Anxiety COPD (chronic obstructive pulmonary disease) Hypothyroidism Lung abscess Osteoarthritis Crohns disease Onset Date: Unknown History of insomnia Onset Date: 11/07/15 History of cerebrovascular accident in adulthood Onset Date: ~1999 History of pneumonia Onset Date: 06/24/12 Surgical History: Surgical History (Last Reviewed 03/13/19 @ 12:08 by Caro Rosales RN) History of cataract surgery History of cholecystectomy History of ovarian cystectomy History of thyroid surgery History of appendectomy Onset Date: ~1969 History of bronchoscopy Onset Date: 03/13/152011 Dr Jone Saldana Bagan-benign cellular elements. No pathogens History of colonoscopy Onset Date: 02/12/11 Tinguely -tubular adenoma History of hysterectomy Onset Date: ~1979 complete History of salpingo-oophorectomy Onset Date: ~1998 Dr Dolan bilateral History of tonsillectomy Onset Date: Unknown Family History: Family History (Last Reviewed 03/13/19 @ 12:08 by Caro Rosales RN) Father , age 60 Myocardial infarction Mother , age 62 Myocardial infarction Heart disease Diabetes Social History: (Last Reviewed 03/13/19 @ 12:10 by Caro Rosales RN) Social History: Marital status: number of children: 2 current occupational status: disabled Highest education level completed: 11th grade Service: No Tobacco: Smoking Status: Former smoker Alcohol: alcohol intake: former Substance Use: substance use type: does not use Dietary Habits: caffeine: Yes Moni/Tenriism: special moni needs: No Review Of Systems (GEN) - Review of Systems Generalized/Overall Review: Present: Weakness. Absent: Chills, Fever EENTM: Present: No Symptoms Reported Respiratory: Present: Cough, Shortness of Breath Cardiac: Absent: Chest Pain, Edema Abdominal: Absent: Nausea, Vomiting Genitourinary: Present: No Symptoms Reported Musculoskeletal: Present: No Symptoms Reported Neurological: Present: Weakness, Other - confusion and change in speech Skin: Present: No Symptoms Reported Immunizations: IMMUNIZATION HX Immunizations Up to Date Yes History of Influenza Vaccine Yes Hx Pneumococcal Vaccination No Allergies/Adverse Reactions: Allergies Allergy/AdvReac Type Severity Reaction Status Date / Time codeine [Codeine] AdvReac Mild Vomiting Verified 03/13/19 12:10 Home Medications: HOME MEDICATIONS Aspirin 325 mg PO HS 09/16/18 [Last Taken 09/15/18 23:30] zolpidem 10 mg tablet 10 mg PO HS #30 tab 11/11/18 [Last Taken Unknown] albuterol sulfate 2.5 mg INHALATION Q4H PRN #25 vial.neb 02/25/19 [Last Taken Unknown] baclofen 10 mg tablet 5 mg PO TID #90 tab 02/25/19 [Last Taken Unknown] indomethacin 25 mg capsule 25 mg PO TID #90 cap 02/25/19 [Last Taken Unknown] levothyroxine 150 mcg tablet 150 mcg PO DAILY #30 tab 02/25/19 [Last Taken Unknown] Cyclobenzaprine HCl [Flexeril] 10 mg PO BID PRN #20 tab 03/02/19 [Last Taken Unknown] Exam - Exam Vital Signs: Vital Signs - Last Taken Temp 36.8 C 03/13/19 23:06 Pulse 98 03/13/19 23:06 Resp 20 03/13/19 23:06 BP 146/76 03/13/19 23:06 Pulse Ox 98 03/13/19 23:06 Constitutional: Present: Alert, Oriented x3, Other - some confusion at times Respiratory: Present: no respiratory distress, wheezing Cardiovascular/Chest: Present: regular rate, rhythm, no murmur Peripheral Pulses: radial (R): 2+, radial (L): 2+ Abdomen: Present: Normal bowel sounds, soft, nontender, nondistended Skin Exam: Present: normal color, warm/dry, no cyanosis Eye contact: Present: cooperative, good eye contact, other - mumbling and difficult to understand at times Diagnostic Studies: Abnormal Lab Results 03/13/19 03/13/19 03/13/19 Range/Units 01:35 01:35 01:35 MCHC 31.2 L (32-36) g/dl Neutrophils % (Manual) 78 H (42-75) % Lymphocytes % (Manual) 12 L (20-51) % Neutrophils # (Manual) 7.6 H (1.3-6.0) K/mm3 Lymphocytes # (Manual) 1.2 L (1.5-3.5) k/mm3 Atypic/Reactive Lymphs 4 H (0-2) % D-Dimer (0.19-0.49) ug/mL Sodium 143 H (132-142) mmol/L Plasma Sodium 143 H (130-142) mmol/L Potassium 2.5 L D (3.4-4.6) mmol/L Carbon Dioxide 39.4 H (24-32.6) mmol/L Anion Gap 6.1 L (6.8-13.8) mmol/L Random Glucose 117 H (70-110) mg/dL ALT 13 L (19-67) U/L Total Protein (6.2-8.2) gm/dL Albumin 2.6 L (3.4-5.0) gm/dl Procalcitonin 1.35 H (0.05-0.50) ng/mL Urine Protein (NEGATIVE) mg/dL Urine Bilirubin (NEGATIVE) mg/dl Urine WBC (0-5) /hpf 03/13/19 03/13/19 03/13/19 Range/Units 03:17 03:45 14:56 MCHC (32-36) g/dl Neutrophils % (Manual) (42-75) % Lymphocytes % (Manual) (20-51) % Neutrophils # (Manual) (1.3-6.0) K/mm3 Lymphocytes # (Manual) (1.5-3.5) k/mm3 Atypic/Reactive Lymphs (0-2) % D-Dimer 1.63 H (0.19-0.49) ug/mL Sodium (132-142) mmol/L Plasma Sodium (130-142) mmol/L Potassium (3.4-4.6) mmol/L Carbon Dioxide (24-32.6) mmol/L Anion Gap (6.8-13.8) mmol/L Random Glucose 117 H (70-110) mg/dL ALT 8 L (19-67) U/L Total Protein 5.9 L (6.2-8.2) gm/dL Albumin 2.4 L (3.4-5.0) gm/dl Procalcitonin (0.05-0.50) ng/mL Urine Protein 15 H (NEGATIVE) mg/dL Urine Bilirubin 1 H (NEGATIVE) mg/dl Urine WBC Trace H (0-5) /hpf Laboratory Results WBC 9.8 K/mm3 (4.0-10.5) 03/13/19 01:35 RBC 4.82 M/mm3 (4.2-5.4) 03/13/19 01:35 Hgb 13.9 gm/dL (12.5-16.0) 03/13/19 01:35 Hct 44.6 % (37.0-47.0) 03/13/19 01:35 MCV 92.5 fl (78-100) 03/13/19 01:35 MCH 28.8 pg (27-31) 03/13/19 01:35 MCHC 31.2 g/dl (32-36) L 03/13/19 01:35 RDW 13.3 % (11.5-14.0) 03/13/19 01:35 Plt Count 334 K/mm3 (150-450) 03/13/19 01:35 MPV 10.6 fl (8-12.5) 03/13/19 01:35 Neutrophils % (Manual) 78 % (42-75) H 03/13/19 01:35 Lymphocytes % (Manual) 12 % (20-51) L 03/13/19 01:35 Monocytes % (Manual) 2 % (0-9) 03/13/19 01:35 Eosinophils % (Manual) 3 % (0-3) 03/13/19 01:35 Immature Granulocytes 1 (0-1) 03/13/19 01:35 Neutrophils # (Manual) 7.6 K/mm3 (1.3-6.0) H 03/13/19 01:35 Lymphocytes # (Manual) 1.2 k/mm3 (1.5-3.5) L 03/13/19 01:35 Monocytes # (Manual) 0.2 k/mm3 (0.0-1.0) 03/13/19 01:35 Eosinophils # (Manual) 0.3 k/mm3 (0.0-0.7) 03/13/19 01:35 Atypic/Reactive Lymphs 4 % (0-2) H 03/13/19 01:35 Toxic Granulation Trace 03/13/19 01:35 Toxic Vacuolation Trace 03/13/19 01:35 Dohle Bodies Trace 03/13/19 01:35 Platelet Estimate Normal (NORMAL) 03/13/19 01:35 D-Dimer 1.63 ug/mL (0.19-0.49) H 03/13/19 03:45 Sodium 141 mmol/L (132-142) 03/13/19 14:56 Plasma Sodium 141 mmol/L (130-142) 03/13/19 14:56 Potassium 3.9 mmol/L (3.4-4.6) D 03/13/19 14:56 Chloride 104 mmol/L (97-106) 03/13/19 14:56 Carbon Dioxide 31.8 mmol/L (24-32.6) 03/13/19 14:56 Anion Gap 9.1 mmol/L (6.8-13.8) 03/13/19 14:56 BUN 15 mg/dL (3-23) 03/13/19 14:56 Creatinine 0.74 mg/dL (0.4-1.4) 03/13/19 14:56 Est GFR (Non-Af Amer) 83 mL/min (60-130) D 03/13/19 14:56 BUN/Creatinine Ratio 20.3 (9.0-21.6) 03/13/19 14:56 Random Glucose 117 mg/dL (70-110) H 03/13/19 14:56 Lactic Acid, Venous 1.7 mmol/L (0.4-2.0) 03/13/19 01:35 Calcium 7.9 mg/dL (7.9-10.9) 03/13/19 14:56 Calcium Adj for Albumin 8.9 mg/dL (8.4-10.2) 03/13/19 14:56 Total Bilirubin 0.3 mg/dL (0.0-1.1) 03/13/19 14:56 AST 15 U/L (0-48) 03/13/19 14:56 ALT 8 U/L (19-67) L 03/13/19 14:56 Alkaline Phosphatase 105 U/L (50-170) 03/13/19 14:56 Total Protein 5.9 gm/dL (6.2-8.2) L 03/13/19 14:56 Albumin 2.4 gm/dl (3.4-5.0) L 03/13/19 14:56 Procalcitonin 1.35 ng/mL (0.05-0.50) H 03/13/19 01:35 Urine Color Dark yellow 03/13/19 03:17 Urine Appearance Slightly cloudy (CLEAR) 03/13/19 03:17 Urine pH 6.0 pH (5.0-7.0) 03/13/19 03:17 Ur Specific [place] 1.025 SP.GR. (1.005-1.010) 03/13/19 03:17 Urine Protein 15 mg/dL (NEGATIVE) H 03/13/19 03:17 Urine Glucose (UA) Negative mg/dL (NEGATIVE) 03/13/19 03:17 Urine Ketones Negative mg/dL (NEGATIVE) 03/13/19 03:17 Urine Blood Negative /ul (NEGATIVE) 03/13/19 03:17 Urine Nitrate Negative (NEGATIVE) 03/13/19 03:17 Urine Bilirubin 1 mg/dl (NEGATIVE) H 03/13/19 03:17 Urine Ictotest Negative (NEGATIVE) 03/13/19 03:17 Prot Sulfosalicylic Acd 1+ mg/dL (0) 03/13/19 03:17 Urine Urobilinogen Normal EU/dl (NORMAL) 03/13/19 03:17 Ur Leukocyte Esterase Negative /ul (NEGATIVE) 03/13/19 03:17 Urine RBC None seen /hpf (0-5) 03/13/19 03:17 Urine WBC Trace /hpf (0-5) H 03/13/19 03:17 Ur Epithelial Cells None seen /hpf (0-5) 03/13/19 03:17 Urine Bacteria Trace (NONE) 03/13/19 03:17 Urine Culture Comments No culture indicated 03/13/19 03:17 Urine Opiates Screen Negative (NEGATIVE) 03/13/19 03:15 Barbiturate Screen Negative (NEGATIVE) 03/13/19 03:15 Ur Phencyclidine Scrn Negative (NEGATIVE) 03/13/19 03:15 Urine Amphetamine Negative (NEGATIVE) 03/13/19 03:15 U Benzodiazepines Scrn Negative (NEGATIVE) 03/13/19 03:15 Urine Cocaine Screen Negative (NEGATIVE) 03/13/19 03:15 Urine Marijuana (THC) Negative (NEGATIVE) 03/13/19 03:15 Assessment/Plan - Narrative Narrative: Lynn is a 68 yo female with hypokalemia and potassium below 3, will replace potassium and monitor. There is also worsening cavitary lesion of right lung base. For the most part this has been present for years but it has changed in comparison to prior studies. This may be worsening abscess and will start on zosyn. Her altered mental status may be related to potassium or infection and would be expected to improve. May also consider MRI to evaluate for CVA. Expect >2 midnights to replace potassium and treat infection with IV antibiotics and to monitor for response, will admit to acute inpatient. - Assessment/Plan (1) Acute encephalopathy Problem: Acute (2) Hypokalemia Problem: Acute (3) Cavitary lesion of lung Problem: Acute
[2019-03-14] MEDS ORDERED: ALBUTEROL SULFATE/IPRATROPIUM 3 ML NEBU IH PRN (07:11)
[2019-03-14 12:13] LABS: Hematocrit 43.1 % (37.0-47.0); Hemoglobin 13.1 gm/dL (12.5-16.0); Mean Cell Volume 93.7 fl (78-100); Mean Corpuscular Hemoglobin 28.5 pg (27-31); Mean Corpuscular Hgb Conc 30.4 g/dl (32-36); Mean Platelet Volume 10.9 fl (8-12.5); Neutrophil # 7.5 K/mm3 (1.3-6.0); Neutrophil % 80.9 % (42-75.0); Platelet Count 216 K/mm3 (150-450); Red Cell Distribution Width 13.4 % (11.5-14.0); White Blood Count 9.3 K/mm3 (4.0-10.5)
[2019-03-14] MEDS ORDERED: CYCLOBENZAPRINE HCL 10 MG TABLET PO PRN (12:14)
[2019-03-14 12:43] LABS: Albumin * 2.5 gm/dl (3.4-5.0); Anion Gap 8.1 mmol/L (6.8-13.8); BUN/Creatinine Ratio 10.9 (9.0-21.6); Bilirubin, Total 0.3 mg/dL (0.0-1.1); Ca. Corrected For Albumin 9.6 mg/dL (8.4-10.2); Calcium * 8.7 mg/dL (7.9-10.9); Carbon Dioxide 32.6 mmol/L (24-32.6); Potassium 3.7 mmol/L (3.4-4.6); Total Protein 6.1 gm/dL (6.2-8.2)
[2019-03-14] MEDS: LEVOTHYROXINE SODIUM 150 MCG TABLET PO SCH (13:06)
[2019-03-14] MEDS: INDOMETHACIN 25 MG CAPSULE PO SCH ×2 (13:06→20:39)
[2019-03-14] MEDS: BACLOFEN 10 MG TABLET PO SCH ×2 (13:06→20:39)
[2019-03-14] MEDS: ASPIRIN 325 MG TABLET.DR PO SCH (20:40)
--- NOTE | 2019-03-14 23:41 | PN ---
Subjective - Date and Time Seen Date: 03/14/19 Time: 10:30 Subjective Narrative: Reports feeling better, still mumbles at times. No fever, chills, nausea, or vomiting. Objective - Vitals Vitals: Last Vital Signs Temp 36.9 C 03/14/19 19:51 Pulse 92 03/14/19 22:43 Resp 20 03/14/19 22:43 BP 121/57 03/14/19 22:43 Pulse Ox 99 03/14/19 22:43 - Abnormal Lab Findings Abnormal Lab Findings: Abnormal Lab Results 03/14/19 03/14/19 Range/Units 11:46 11:46 MCHC 30.4 L (32-36) g/dl Immature Gran % (Auto) 0.60 H (0.001-0.429) % Immature Gran # (Auto) 0.06 H (0.000-0.0310) K/mm3 Neutrophils % 80.9 H (42-75.0) % Lymphocytes % 8.2 L (20-51) % Neutrophils # 7.5 H (1.3-6.0) K/mm3 Lymphocytes # 0.76 L (1.5-3.5) k/mm3 ALT 5 L (19-67) U/L Total Protein 6.1 L (6.2-8.2) gm/dL Albumin 2.5 L (3.4-5.0) gm/dl - Exam Constitutional: Present: Alert, Oriented x3, Cooperative ENT Exam: Present: hard of hearing Respiratory: Present: no respiratory distress, wheezing Cardiovascular/Chest: Present: regular rate, rhythm, no murmur Abdomen: Present: Normal bowel sounds, soft, nontender, nondistended Skin Exam: Present: normal color, warm/dry, no cyanosis Assessment/Plan Plan Narrative: Reports better today. Potassium normal. Less confusion today. Continue zosyn for coverage of lung abscess. - Problems/Diagnosis (1) Acute encephalopathy Problem: Acute (2) Hypokalemia Problem: Resolved (3) Cavitary lesion of lung Problem: Acute
[2019-03-15] MEDS: ZOLPIDEM TARTRATE 10 MG TABLET PO SCH ×2 (00:09→21:20)
[2019-03-15] MEDS: LEVOTHYROXINE SODIUM 150 MCG TABLET PO SCH (07:44)
[2019-03-15] MEDS: INDOMETHACIN 25 MG CAPSULE PO SCH ×3 (07:44→21:20)
[2019-03-15] MEDS: BACLOFEN 10 MG TABLET PO SCH ×3 (07:44→21:20)
--- NOTE | 2019-03-15 12:28 | PN ---
Subjective - Date and Time Seen Date: 03/15/19 Time: 12:20 Subjective Narrative: I reviewed previous progress notes, H&P, and ER note. I spoke with her nurse this noon. Patient reports that she is improving. Nurse also says that she is improving, but still confused. Less confused than yesterday. Today for example she thinks that it is 2008 instead of 2019. She states she has a good appetite. She is been up and around to the bathroom, but not walking yet in the halls. Her vitals have been stable, and she has had good O2 sats. Recent blood work was stable enough that we do not need to repeat it at the present time. I noted that her albumin is fairly low at 2.5. We will add nutritional supplements. Objective - Review of Systems Generalized/Overall Review: Reports: Malaise, Fatigue EENTM: Denies: Eye Pain, Blurred Vision Respiratory: Reports: Cough, Shortness of Breath, Wheezing. Denies: Orthopnea Cardiac: Denies: Chest Pain, Palpitations Abdominal: Denies: Nausea, Abdominal Pain, Constipation, Diarrhea Genitourinary Symptoms: Denies: Frequency, Dysuria Musculoskeletal Complaints: Denies: Joint Pain, Back Pain Neurological: Denies: Headache, Anxiety, Depressed Skin: Denies: Lesions, Rash Endocrine: Reports: No Symptoms Reported Misc: All systems neg except as marked - Vitals Vitals: Last Vital Signs Temp 36.9 C 03/15/19 06:25 Pulse 95 03/15/19 06:25 Resp 18 03/15/19 06:25 BP 138/78 03/15/19 06:25 Pulse Ox 95 03/15/19 07:35 - Abnormal Lab Findings Abnormal Lab Findings: Abnormal Lab Results 03/14/19 Range/Units 11:46 ALT 5 L (19-67) U/L Total Protein 6.1 L (6.2-8.2) gm/dL Albumin 2.5 L (3.4-5.0) gm/dl - Exam Constitutional: Present: Alert, Cooperative, Well developed, Well nourished, No distress - Oriented to place and person. Has trouble with time. ENT Exam: Present: normal ENT inspection, hearing grossly normal Neck: Present: normal inspection. Absent: lymphadenopathy (R), lymphadenopathy (L), thyromegaly - Slight increased work of respiration at rest Respiratory: Present: decreased breath sounds, rhonchi Cardiovascular/Chest: Present: normal peripheral pulses, regular rate, rhythm, no chest tenderness, no gallop, no JVD, no murmur, JVD Abdomen: Present: Normal bowel sounds, soft, nontender, nondistended, no masses. Absent: tender /Rectal: Present: Exam deferred Extremity: Present: normal range of motion, normal inspection Skin Exam: Present: normal color, warm/dry, no cyanosis Lymphatic: Present: no adenopathy Neurologic: Present: alert, normal mood/affect Appearance: Present: appropriate appearance, neat Eye contact: Present: cooperative, good eye contact, normal speech Thoughts: Present: normal thought pattern Assessment/Plan - Problems/Diagnosis (1) Acute encephalopathy Problem: Acute Narrative: Steadily improving (2) Cavitary lesion of lung Problem: Acute Narrative: We will continue IV antibiotics. When it is time for her to go home will transition to oral Augmentin. Labs of been doing well enough that there is no indication at the present time for repeat. (3) Hypoxia Problem: Acute Narrative: Stable O2 sats with 2 L nasal cannula oxygen. We will try tapering the oxygen today. (4) Hypoalbuminemia due to protein-calorie malnutrition Problem: Acute Narrative: We will add nutritional supplements to her regular diet due to the low albumin.
--- NOTE | 2019-03-15 13:50 | PN ---
Progess Note - Interim Date: 03/15/19 Time: 13:48 Narrative: 03/15/19 13:48 Received phone call from pharmacist, Dr. Clemencia Grant. Zosyn was not actually ordered, but was part of the treatment plan. The patient does in fact have a cavitary lung lesion on chest xray. After discussion, we decided to start and use Unasyn. I will order it now.
[2019-03-15] MEDS: AMPICILLIN SODIUM/SULBACTAM NA 3 GM in NORMAL SALINE 100 ML IV SCH ×2 (14:52→19:15)
--- NOTE | 2019-03-15 15:59 | PN ---
Progess Note - Interim Date: 03/15/19 Time: 15:58 Narrative: 03/15/19 15:58 Encephalopathy toxic due to infection and metabolic due to hypoxemia.
[2019-03-15] MEDS: ASPIRIN 325 MG TABLET.DR PO SCH (21:20)
[2019-03-16] MEDS: AMPICILLIN SODIUM/SULBACTAM NA 3 GM in NORMAL SALINE 100 ML IV SCH ×4 (03:09→20:12)
[2019-03-16] MEDS: BACLOFEN 10 MG TABLET PO SCH ×2 (07:06→14:12)
[2019-03-16] MEDS: INDOMETHACIN 25 MG CAPSULE PO SCH ×2 (07:06→14:12)
[2019-03-16] MEDS: LEVOTHYROXINE SODIUM 150 MCG TABLET PO SCH (07:07)
--- NOTE | 2019-03-16 07:43 | PN ---
Subjective - Date and Time Seen Date: 03/16/19 Time: 07:31 Subjective Narrative: Patient reports that she is improving, but she is drowsy therefore a poor historian this morning. Still confused. Forgets things and often has to have information repeated over and over again. She is now off O2. Her O2 sats are in the low to mid 90s. She walked twice in the halls. Her vitals have been stable. She is now on Unasyn, because Zosyn had been omitted. At the present time it is unknown whether or not she is normally confused at home. The cavitary lesion from the CT on 03/13/2019 is chronic. It was there on 07/06/2018. Then as it is now clear was an air-fluid level. This cavitary lesion may actually be a bulla related to her COPD. On admission her CO2 was 39.4, suggestive of some CO2 retention. Her procalcitonin was 1.35 on the day of admission. Blood pressure is slightly elevated. Our plan will be to monitor. Objective - Review of Systems Generalized/Overall Review: Reports: Malaise. Denies: Fever EENTM: Denies: Eye Pain Respiratory: Reports: Cough, Shortness of Breath, Wheezing Cardiac: Denies: Chest Pain Abdominal: Denies: Nausea, Constipation, Diarrhea Genitourinary Symptoms: Denies: Dysuria Musculoskeletal Complaints: Denies: Joint Pain Neurological: Denies: Headache Skin: Denies: Rash Endocrine: Denies: Intolerance to Cold, Intolerance to Heat - Vitals Vitals: Last Vital Signs Temp 37 C 03/16/19 06:30 Pulse 99 03/16/19 06:30 Resp 22 H 03/16/19 06:30 BP 151/80 H 03/16/19 06:30 Pulse Ox 91 L 03/16/19 06:30 - Exam Constitutional: Present: Cooperative, Well developed, Well nourished, Somnolent ENT Exam: Present: normal ENT inspection, hearing grossly normal Neck: Present: normal inspection. Absent: lymphadenopathy (R), lymphadenopathy (L), thyromegaly Breasts: Present: Exam deferred Respiratory: Present: decreased breath sounds, rhonchi, other - Pursed lip breathing Cardiovascular/Chest: Present: regular rate, rhythm, no edema, no gallop, no JVD, no murmur Abdomen: Present: Normal bowel sounds, soft, nontender, nondistended, no hepatospenomegaly, no masses /Rectal: Present: Exam deferred Extremity: Present: normal inspection Skin Exam: Present: normal color, warm/dry, no cyanosis Lymphatic: Present: no adenopathy Neurologic: Present: other - Disoriented to time. Appearance: Present: appropriate appearance, impaired insight, impaired recent memory Eye contact: Present: cooperative Thoughts: Present: normal mood /affect Assessment/Plan - Problems/Diagnosis (1) Acute encephalopathy Problem: Acute Narrative: Metabolic. Due to infection. Also related to hypoxemia and CO2 retention. We will check ABGs today because she is quite drowsy this morning and I am concerned that her CO2 retention may have worsened. We will also repeat a CBC and chemistries tomorrow. Its possible that there is chronic ongoing memory and orientation problems. We will try to reach her daughter today to find out. (2) Cavitary lesion of lung Problem: Acute Narrative: Cavitary lesion is chronic. It was present about the same size on 07/06/2018 CT scan. Then as now there was an air-fluid level. Our plan will be to continue IV antibiotics. When she goes home we will provide oral antibiotics. When she goes home and will follow-up in the office we will also arrange a PFT and a pulmonology consult. (3) Hypoxia Problem: Acute Narrative: O2 sats now low to mid 90s on room air. She has pursed lip breathing. (4) Hypoalbuminemia due to protein-calorie malnutrition Problem: Acute Narrative: We will continue with nutritional supplements.
[2019-03-16] MEDS: ALBUTEROL SULFATE/IPRATROPIUM 3 ML NEBU IH SCH ×3 (09:00→18:40)
[2019-03-16] MEDS: ALBUTEROL SULFATE 2.5 MG/0.5 ML VIAL.NEB IH PRN ×3 (09:05→18:50)
--- NOTE | 2019-03-16 16:36 | PN ---
Progess Note - Interim Date: 03/16/19 Time: 16:35 Narrative: 03/16/19 16:35 Air fluid level in lung cavitary lesion. Infectious. We will call this an abscess. (collection of pus).
[2019-03-16] MEDS ORDERED: ZOLPIDEM TARTRATE 10 MG TABLET PO PRN (17:31)
--- NOTE | 2019-03-16 18:11 | PN ---
Hali Note - Interim Date: 03/16/19 Time: 18:09 Narrative: 03/16/19 18:09 Spent 15 minutes speaking with family and patient about her current situation. Has had chronic thinking problems for about a year. Markedly worsened after medication was started recently for leg pain. Possibilities include the addition of the medication, the infection itself, or perhaps something else. We will start with removing all of the possible confusing medications. The patient has bronchitis and a lung abscess. Both of these we are treating with antibiotics. She does not like hospital food. The family brought in to fast food sandwiches plus a milkshake. The patient has eaten all of those. She will probably be here at least another day or 2. It may take 3 or 4 days, if medication causing confusion is the issue, for the effects to wear off. Most recent potassium was normal. We will repeat blood work tomorrow, and among other things we will check the potassium again. The patient will need a PFT and a pulmonary referral once she is been discharged. We will arrange that in the office.
[2019-03-16] MEDS: ASPIRIN 325 MG TABLET.DR PO SCH (20:12)
[2019-03-17] MEDS: ALBUTEROL SULFATE/IPRATROPIUM 3 ML NEBU IH SCH ×4 (00:08→18:17)
[2019-03-17] MEDS: AMPICILLIN SODIUM/SULBACTAM NA 3 GM in NORMAL SALINE 100 ML IV SCH ×4 (01:52→20:28)
[2019-03-17 06:30] LABS: Hemoglobin 11.3 gm/dL (12.5-16.0); Mean Cell Volume 93.9 fl (78-100); Mean Corpuscular Hemoglobin 28.7 pg (27-31); Mean Corpuscular Hgb Conc 30.5 g/dl (32-36); Mean Platelet Volume 10.8 fl (8-12.5); Neutrophil # 5.8 K/mm3 (1.3-6.0); Neutrophil % 77.6 % (42-75.0); Platelet Count 228 K/mm3 (150-450); Red Blood Count 3.94 M/mm3 (4.2-5.4); Red Cell Distribution Width 13.5 % (11.5-14.0); White Blood Count 7.5 K/mm3 (4.0-10.5)
[2019-03-17 06:40] LABS: Albumin * 2.1 gm/dl (3.4-5.0); Anion Gap 10.8 mmol/L (6.8-13.8); BUN/Creatinine Ratio 24.7 (9.0-21.6); Bilirubin, Total 0.2 mg/dL (0.0-1.1); Ca. Corrected For Albumin 9.7 mg/dL (8.4-10.2); Calcium * 8.5 mg/dL (7.9-10.9); Carbon Dioxide 32.9 mmol/L (24-32.6); Potassium 3.7 mmol/L (3.4-4.6); Total Protein 5.7 gm/dL (6.2-8.2)
[2019-03-17] MEDS: LEVOTHYROXINE SODIUM 150 MCG TABLET PO SCH (07:01)
--- NOTE | 2019-03-17 07:44 | PN ---
Subjective - Date and Time Seen Date: 03/17/19 Time: 07:31 Subjective Narrative: Lynn reports she is better. Both on exam this morning and according to the nurses she remains confused. I spoke with her family last night. She has been somewhat confused for a year, but shortly after I started new medication in the office recently, she became much more confused with very poor memory. We stopped these medications yesterday. It may take several days for the confusion and memory problems to dissipate. If not, she will need a brain MRI. I discussed all of this with her family last evening. She remains off O2. She is walking in the halls. She does not like the hospital food but she eats some of it. When her family brought in fast food last evening she ate all of it. The cavitary lesion from the CT on 03/13/2019 is chronic. It was there on 07/06/2018. Then as it is now there was an air-fluid level. This cavitary lesion may actually be a bulla related to her COPD, but I interpret the air-fluid level as pus, therefore this is abscess at the present time. She also has bronchitis. Her cough continues. Her CO2 has improved. Her CBC is unremarkable. Her sodium is slightly high at 144. She is not on any IV fluid therapy at the present time. Vitals including O2 sat are stable, except for tachypnea. Respiratory rate this morning was 30. We will continue to monitor. Objective - Review of Systems Generalized/Overall Review: Reports: Malaise EENTM: Denies: Ear Pain, Nose Congestion Respiratory: Reports: Cough, Wheezing. Denies: Shortness of Breath Cardiac: Denies: Chest Pain, Edema Abdominal: Denies: Nausea, Abdominal Pain, Constipation, Diarrhea Genitourinary Symptoms: Denies: Burning, Frequency Musculoskeletal Complaints: Denies: Joint Pain, Back Pain Neurological: Reports: Other - Very poor historian. Denies: Anxiety, Depressed Skin: Denies: Lesions, Rash Endocrine: Denies: No Symptoms Reported Misc: All systems neg except as marked - Vitals Vitals: Last Vital Signs Temp 37.0 C 03/17/19 01:48 Pulse 98 03/17/19 06:23 Resp 30 H 03/17/19 06:23 BP 111/59 03/17/19 01:48 Pulse Ox 95 03/17/19 06:13 - Abnormal Lab Findings Abnormal Lab Findings: Abnormal Lab Results 03/16/19 03/17/19 03/17/19 Range/Units 08:54 06:15 06:15 RBC 3.94 L (4.2-5.4) M/mm3 Hgb 11.3 L (12.5-16.0) gm/dL MCHC 30.5 L (32-36) g/dl Immature Gran % (Auto) 0.50 H (0.001-0.429) % Immature Gran # (Auto) 0.04 H (0.000-0.0310) K/mm3 Neutrophils % 77.6 H (42-75.0) % Lymphocytes % 11.2 L (20-51) % Eosinophils % 3.3 H (0.0-3.0) % Lymphocytes # 0.84 L (1.5-3.5) k/mm3 pCO2 46.0 H (32.0-45.0) mmHg pO2 57.1 L (83.0-108.0) mmHg HCO3 31.0 H (21.0-28.0) mmol/L Total CO2 32.5 H (19.0-24.0) mmol/L Base Excess 6.1 H (-2.0-3.0) mmol/L ABG O2 Sat (Measured) 90.7 L (94.0-98.0) % Sodium 144 H (132-142) mmol/L Plasma Sodium 144 H (130-142) mmol/L Carbon Dioxide 32.9 H (24-32.6) mmol/L BUN/Creatinine Ratio 24.7 H (9.0-21.6) Random Glucose 111 H D (70-110) mg/dL ALT 10 L (19-67) U/L Total Protein 5.7 L (6.2-8.2) gm/dL Albumin 2.1 L (3.4-5.0) gm/dl - Exam Constitutional: Present: Alert, Cooperative, Well developed, Well nourished, Other - Is oriented to herself and to me. She knows she is in the hospital. She does not know the date or time. ENT Exam: Present: normal ENT inspection, hearing grossly normal Neck: Present: normal inspection. Absent: lymphadenopathy (R), lymphadenopathy (L), thyromegaly Breasts: Present: Exam deferred Respiratory: Present: lungs clear - But loose congested cough. Absent: rhonchi Cardiovascular/Chest: Present: regular rate, rhythm, no edema, no gallop, no JVD, no murmur Abdomen: Present: Normal bowel sounds, soft, nontender, nondistended, no masses /Rectal: Present: Exam deferred Extremity: Present: normal inspection, no pedal edema Skin Exam: Present: normal color, warm/dry, no cyanosis Lymphatic: Present: no adenopathy Neurologic: Present: alert Appearance: Present: appropriate appearance, impaired insight, impaired recent memory, impaired remote memory. Absent: appropriate insight, neat Eye contact: Present: cooperative, good eye contact Thoughts: Present: normal thought pattern Assessment/Plan - Problems/Diagnosis (1) Acute encephalopathy Problem: Acute Narrative: Toxic encephalopathy. In part due to infection (bronchitis and lung abscess) in part perhaps due to medication. The medications have been stopped yesterday. It may take several days for their effects to wear off. If not, she may need a brain MRI. For the infection we will continue intravenous antibiotics. I discussed this plan with her family last evening. (2) Cavitary lesion of lung Problem: Acute Narrative: There is an air-fluid level in her cavitary lesion, presumably pus. Therefore at the present time she has a lung abscess. (3) Acute bronchitis Problem: Acute Qualifiers: Bronchitis organism: unspecified organism Qualified Code(s): J20.9 - Acute bronchitis, unspecified Narrative: We will continue antibiotics and nebulized medication. (4) Hypoxia Problem: Resolved (5) Hypoalbuminemia due to protein-calorie malnutrition Problem: Acute
[2019-03-17] MEDS: ASPIRIN 325 MG TABLET.DR PO SCH (20:27)
[2019-03-18] MEDS: ALBUTEROL SULFATE/IPRATROPIUM 3 ML NEBU IH SCH ×4 (00:17→18:15)
[2019-03-18] MEDS: AMPICILLIN SODIUM/SULBACTAM NA 3 GM in NORMAL SALINE 100 ML IV SCH ×4 (01:17→20:02)
[2019-03-18] MEDS ORDERED: ACETAMINOPHEN 325 MG TABLET PO PRN (06:17)
--- NOTE | 2019-03-18 06:27 | PN ---
Subjective - Date and Time Seen Date: 03/18/19 Time: 06:19 Subjective Narrative: Lynn reports she is better. Both on exam this morning and according to the nurses she is much less confused.. She remains off O2. She is walking in the halls. She is eating better. She continues to cough. Her ABGs yesterday showed hypoxemia and mild CO2 retention as well as a compensated respiratory acidosis. Vitals including O2 sat are stable. Tachypnea has improved.. Respiratory rate this morning was in the low 20s. We will continue to monitor. Objective - Review of Systems Generalized/Overall Review: Reports: Malaise EENTM: Reports: No Symptoms Reported Respiratory: Reports: Cough, Other - Dyspnea on exertion. Denies: Wheezing Cardiac: Denies: Chest Pain, Palpitations Abdominal: Reports: No Symptoms Reported Genitourinary Symptoms: Reports: No Symptoms Reported Musculoskeletal Complaints: Reports: Other - Leg pain bilateral. Biofreeze is helping a tiny bit.. Denies: Back Pain Neurological: Reports: No Symptoms Reported Skin: Reports: No Symptoms Reported Endocrine: Reports: No Symptoms Reported Misc: All systems neg except as marked - Vitals Vitals: Last Vital Signs Temp 36.6 C 03/18/19 03:00 Pulse 107 H 03/18/19 06:15 Resp 24 H 03/18/19 06:15 BP 152/75 H 03/18/19 03:00 Pulse Ox 94 03/18/19 06:05 - Abnormal Lab Findings Abnormal Lab Findings: Abnormal Lab Results 03/17/19 03/17/19 Range/Units 06:15 06:15 RBC 3.94 L (4.2-5.4) M/mm3 Hgb 11.3 L (12.5-16.0) gm/dL MCHC 30.5 L (32-36) g/dl Immature Gran % (Auto) 0.50 H (0.001-0.429) % Immature Gran # (Auto) 0.04 H (0.000-0.0310) K/mm3 Neutrophils % 77.6 H (42-75.0) % Lymphocytes % 11.2 L (20-51) % Eosinophils % 3.3 H (0.0-3.0) % Lymphocytes # 0.84 L (1.5-3.5) k/mm3 Sodium 144 H (132-142) mmol/L Plasma Sodium 144 H (130-142) mmol/L Carbon Dioxide 32.9 H (24-32.6) mmol/L BUN/Creatinine Ratio 24.7 H (9.0-21.6) Random Glucose 111 H D (70-110) mg/dL ALT 10 L (19-67) U/L Total Protein 5.7 L (6.2-8.2) gm/dL Albumin 2.1 L (3.4-5.0) gm/dl - Exam Constitutional: Present: Alert, Oriented x3, Cooperative, Well developed, Well nourished, No distress ENT Exam: Present: normal ENT inspection, hearing grossly normal Neck: Present: normal inspection. Absent: lymphadenopathy (R), lymphadenopathy (L), thyromegaly Respiratory: Present: lungs clear - Very loose congested cough, no respiratory distress Cardiovascular/Chest: Present: regular rate, rhythm, no gallop, no JVD, no murmur Abdomen: Present: Normal bowel sounds, soft, nontender, nondistended, no masses. Absent: tender /Rectal: Present: Exam deferred Extremity: Present: normal range of motion, normal inspection Skin Exam: Present: normal color, warm/dry, no cyanosis Lymphatic: Present: no adenopathy Neurologic: Present: normal mood/affect Appearance: Present: appropriate appearance, impaired recent memory - Improved Eye contact: Present: cooperative, good eye contact Thoughts: Present: normal thought pattern Assessment/Plan Plan Narrative: Considerably improved. Most likely related primarily to medication, but somewhat related to her lung infection. MRI is unnecessary at the present time. - Problems/Diagnosis (1) Acute encephalopathy Problem: Acute (2) Cavitary lesion of lung Problem: Acute Narrative: We will continue antibiotics Cavitary lesion contains purulent material most likely. Patient is improving. We will probably send her home tomorrow on oral antibiotics. (3) Acute bronchitis Problem: Acute Qualifiers: Bronchitis organism: unspecified organism Qualified Code(s): J20.9 - Acute bronchitis, unspecified Narrative: We will continue antibiotics (4) Hypoxia Problem: Resolved Narrative: We will withhold supplemental oxygen as long as her O2 saturations are remaining good (5) Hypoalbuminemia due to protein-calorie malnutrition Problem: Acute (6) CO2 retention Problem: Chronic (7) Compensated respiratory acidosis Problem: Chronic
[2019-03-18] MEDS: LEVOTHYROXINE SODIUM 150 MCG TABLET PO SCH (06:52)
[2019-03-18] MEDS: TROLAMINE SALICYLATE 90 APPL TUBE TP SCH ×4 (09:19→20:01)
[2019-03-18] MEDS: ASPIRIN 325 MG TABLET.DR PO SCH (20:03)
[2019-03-19] MEDS: ALBUTEROL SULFATE/IPRATROPIUM 3 ML NEBU IH SCH ×3 (00:11→14:21)
[2019-03-19] MEDS: AMPICILLIN SODIUM/SULBACTAM NA 3 GM in NORMAL SALINE 100 ML IV SCH ×3 (02:36→15:11)
[2019-03-19] MEDS: LEVOTHYROXINE SODIUM 150 MCG TABLET PO SCH (07:18)
[2019-03-19] MEDS: TROLAMINE SALICYLATE 90 APPL TUBE TP SCH ×2 (08:27→13:15)
--- NOTE | 2019-03-19 12:59 | DS ---
Date of Discharge:: 03/19/19 Description of Stay: 68 female with past medical history of COPD, lung abscess, Crohn's disease, generalized anxiety disorder, hypothyroidism, history of insomnia in 2016, history of CVA in 1999 and pneumonia in 2012, was admitted on March 13, 2019 at [facility] for metabolic encephalopathy shortness of breath and productive cough secondary to Lung cavitary lesion with abscess. Daughter at bedside upon discharge, and stated symptoms of shortness of breath and productive cough have been present for 2 months and have progressively become worse, and they came to the ER for further evaluation. On admission patient was hypoxic and hypotensive and requiring oxygen. ABGs obtained were consistent with hypoxemia and mild CO2 retention with compensated respiratory acidosis. Extensive work-up completed in the ER, including CT head which was unremarkable. CT chest completed and consistent with findings of lung cavitary lesion. Upon review of medical records findings on the CT chest were chronic in comparison to the CT chest completed in July [id number]. However, new changes of air-fluid levels were concerning for an abscess. Findings on CT chest obtained on March 13, 2019 were discussed with family members and they declined transfer to [facility] for consideration consideration for surgical intervention. On admission, patient started on 2 L oxygen nasal cannula, breathing treatments and started on Unasyn 3 g IV every 6 hours, today is day #5. Patient was weaned off oxygen. Now on room air and vital signs are stable. In regards to metabolic encephalopathy, extensive work-up was completed and largely unremarkable. However patient was on multiple medications that could affect her mental status. Medications were stopped, and during hospitalization patient's mental status significantly improved. As per recommendation by primary care provider patient to be discharged on current medications and not to resume previous medications that resulted in acute encephalopathy. Patient to be scheduled for PFTs and Pulmonology referral upon discharge. Primary care provider, Dr. Campbell will arrange PFTs and referrals at follow-up appointment outpatient. Patient will be discharged on Augmentin 875 for 30 days. Prescription will be provided upon discharge. Patient will be discharged with home health services for medication management and nursing assistance. I will also order PT to assist with ambulation and physical therapy. Patient will be scheduled with a follow-up appointment with Dr. Campbell 1 week from discharge. Lynn is confined to the home due to weakness and multiple comorbidities. Need for detention is medication Acacian management, assistance with activities of daily living and the need for physical therapy is for ambulation, gait, balance issues, mobility issues and strengthening exercises. Need for home health care skilled services directly related to the time spent [id number] with the present. Procedures Performed: none Results and Findings: Lab Pending Results 03/13/19 01:35: Procalcitonin 1.35 H 03/13/19 01:35: WBC 9.8, RBC 4.82, Hgb 13.9, Hct 44.6, MCV 92.5, MCH 28.8, MCHC 31.2 L, RDW 13.3, Plt Count 334, MPV 10.6, Neutrophils % (Manual) 78 H, Lymphocytes % (Manual) 12 L, Monocytes % (Manual) 2, Eosinophils % (Manual) 3, Immature Granulocytes 1, Neutrophils # (Manual) 7.6 H, Lymphocytes # (Manual) 1.2 L, Monocytes # (Manual) 0.2, Eosinophils # (Manual) 0.3, Atypic/Reactive Lymphs 4 H, Toxic Granulation Trace, Toxic Vacuolation Trace, Dohle Bodies Trace, Platelet Estimate Normal 03/13/19 01:35: Sodium 143 H, Plasma Sodium 143 H, Potassium 2.5 L D, Chloride 100, Carbon Dioxide 39.4 H, Anion Gap 6.1 L, BUN 17, Creatinine 0.93, Est GFR (Non-Af Amer) 64, BUN/Creatinine Ratio 18.3, Random Glucose 117 H, Calcium 8.4, Calcium Adj for Albumin 9.2, Total Bilirubin 0.6, AST 17, ALT 13 L, Alkaline Phosphatase 115, Total Protein 6.4, Albumin 2.6 L 03/13/19 01:35: Lactic Acid, Venous 1.7 03/13/19 03:15: Urine Opiates Screen Negative, Barbiturate Screen Negative, Ur Phencyclidine Scrn Negative, Urine Amphetamine Negative, U Benzodiazepines Scrn Negative, Urine Cocaine Screen Negative, Urine Marijuana (THC) Negative 03/13/19 03:17: Urine Color Dark yellow, Urine Appearance Slightly cloudy, Urine pH 6.0, Ur Specific [place] 1.025, Urine Protein 15 H, Urine Glucose (UA) Negative, Urine Ketones Negative, Urine Blood Negative, Urine Nitrate Negative, Urine Bilirubin 1 H, Urine Ictotest Negative, Prot Sulfosalicylic Acd 1+, Urine Urobilinogen Normal, Ur Leukocyte Esterase Negative, Urine RBC None seen, Urine WBC Trace H, Ur Epithelial Cells None seen, Urine Bacteria Trace, Urine Culture Comments No culture indicated 03/13/19 03:45: D-Dimer 1.63 H 03/13/19 14:56: Sodium 141, Plasma Sodium 141, Potassium 3.9 D, Chloride 104, Carbon Dioxide 31.8, Anion Gap 9.1, BUN 15, Creatinine 0.74, Est GFR (Non-Af Amer) 83 D, BUN/Creatinine Ratio 20.3, Random Glucose 117 H, Calcium 7.9, Calcium Adj for Albumin 8.9, Total Bilirubin 0.3, AST 15, ALT 8 L, Alkaline Phosphatase 105, Total Protein 5.9 L, Albumin 2.4 L 03/14/19 11:46: WBC 9.3, RBC 4.60, Hgb 13.1, Hct 43.1, MCV 93.7, MCH 28.5, MCHC 30.4 L, RDW 13.4, Plt Count 216, MPV 10.9, Immature Gran % (Auto) 0.60 H, Immature Gran # (Auto) 0.06 H, Neutrophils % 80.9 H, Lymphocytes % 8.2 L, Monocytes % 7.4, Eosinophils % 2.4, Basophils % 0.5, Nucleated RBC % 0.0, Neutrophils # 7.5 H, Lymphocytes # 0.76 L, Monocytes # 0.7, Eosinophils # 0.2, Absolute Basophils 0.1 03/14/19 11:46: Sodium 139, Plasma Sodium 139, Potassium 3.7, Chloride 102, Carbon Dioxide 32.6, Anion Gap 8.1, BUN 7 D, Creatinine 0.64, Est GFR (Non-Af Amer) 98, BUN/Creatinine Ratio 10.9, Random Glucose 78 D, Calcium 8.7, Calcium Adj for Albumin 9.6, Total Bilirubin 0.3, AST 15, ALT 5 L, Alkaline Phosphatase 97, Total Protein 6.1 L, Albumin 2.5 L 03/16/19 08:54: pCO2 46.0 H, pO2 57.1 L, HCO3 31.0 H, Total CO2 32.5 H, Base Exc ess 6.1 H, ABG pH 7.45, ABG O2 Sat (Measured) 90.7 L 03/17/19 06:15: WBC 7.5, RBC 3.94 L, Hgb 11.3 L, Hct 37.0, MCV 93.9, MCH 28.7, MCHC 30.5 L, RDW 13.5, Plt Count 228, MPV 10.8, Immature Gran % (Auto) 0.50 H, Immature Gran # (Auto) 0.04 H, Neutrophils % 77.6 H, Lymphocytes % 11.2 L, Monocytes % 6.9, Eosinophils % 3.3 H, Basophils % 0.5, Nucleated RBC % 0.0, Neutrophils # 5.8, Lymphocytes # 0.84 L, Monocytes # 0.5, Eosinophils # 0.3, Absolute Basophils 0.0 03/17/19 06:15: Sodium 144 H, Plasma Sodium 144 H, Potassium 3.7, Chloride 104, Carbon Dioxide 32.9 H, Anion Gap 10.8, BUN 20 D, Creatinine 0.81, Est GFR (Non- Af Amer) 75 D, BUN/Creatinine Ratio 24.7 H, Random Glucose 111 H D, Calcium 8.5, Calcium Adj for Albumin 9.7, Total Bilirubin 0.2, AST 15, ALT 10 L, Alkaline Phosphatase 101, Total Protein 5.7 L, Albumin 2.1 L Discharge Location: Home Disposition: Home Health Service Condition: Fair Face to Face Encounter completed per [facility] Guidelines: Yes - Lynn is confined to the home due to weakness and multiple comorbidities. Discharge Activity: Activity as tolerated, Other - Ambulate with walker and as per PT recommendations Discharge Diet: General/regular food Skilled Nursing Therapy: Physical Therapy Referrals: Domo Graves MD [Primary Care Provider] - Additional Patient Instructions (free text): [facility] claribel. Please call report and fax orders upon discharge. Complete Home Medications List: Complete Home Medication List: Aspirin 325 mg PO HS 09/16/18 zolpidem 10 mg tablet 10 mg PO HS #30 tab 11/11/18 albuterol sulfate 2.5 mg INHALATION Q4H PRN #25 vial.neb 02/25/19 levothyroxine 150 mcg tablet 150 mcg PO DAILY #30 tab 02/25/19 Acetaminophen [Tylenol] 650 mg PO QID PRN #120 tab 03/19/19 Amox Tr/Potassium Clavulanate [Augmentin 875-125 Tablet] 1 ea PO Q12H 30 Days #60 tab 03/19/19 Trolamine Salicylate [Aspercreme] 1 appl TOPICAL QID PRN #1 tube 03/19/19
[2019-03-19 14:18] VITALS: BP 149/57
== END 2019-03-19 14:45 | disposition home health service (06) | DRG 177 ==
LOC: ER 00:37 → MS 00:37 → OBSVTOIN 08:38 → MS 09:05
PROVIDERS: ADMIT Family Medicine; ATTEND Allergy & Immunology
DX: R53.1 Weakness; E46 Unspecified protein-calorie malnutrition; Z68.22 Body mass index [BMI] 22.0-22.9, adult; R06.09 Other forms of dyspnea; J44.0 Chronic obstructive pulmonary disease with (acute) lower respiratory infection; J20.9 Acute bronchitis, unspecified; E03.9 Hypothyroidism, unspecified; J85.2 Abscess of lung without pneumonia; R09.02 Hypoxemia; F41.1 Generalized anxiety disorder; Z87.891 Personal history of nicotine dependence; K50.90 Crohn's disease, unspecified, without complications; E87.6 Hypokalemia; E88.09 Other disorders of plasma-protein metabolism, not elsewhere classified; E87.2 Acidosis; G93.41 Metabolic encephalopathy
CPT/HCPCS: 36415; 36600; 70450; 71010; 71045; 71275; 80053; 80307; 81001; 82803; 83605; 84145; 85025; 85379; 87040; 93005; 94640; 94664; 96361; 96365; 96366; 96367; 97161; 99285; Q9967

== ENCOUNTER 2019-07-11 23:23 | Observation (INO) ==
[2019-07-11] MEDS ORDERED: ALBUTEROL SULFATE 2.5 MG/0.5 ML VIAL.NEB IH ONE (23:58)
--- NOTE | 2019-07-12 00:38 | ERNOTE ---
Date of Service: 07/12/19 Time Seen by Provider: 07/11/19 23:39 Stated Complaint: COUGH AMS Presenting Symptoms:: cough, fever Source: patient, family Exam Limitations: clinical condition, dementia Immunizations: IMMUNIZATION HX Immunizations Up to Date Yes History of Influenza Vaccine Yes Hx Pneumococcal Vaccination No Allergies/Adverse Reactions: Allergies codeine [Codeine] Adverse Reaction (Mild, Verified 05/13/19 13:36) Vomiting Home Medications: HOME MEDICATIONS albuterol sulfate 2.5 mg INHALATION Q4H PRN #25 vial.neb 02/25/19 [Last Taken Unknown] acetaminophen 500 mg tablet 1,000 mg PO Q6H #0.1 tab 04/15/19 [Last Taken Unknown] diclofenac sodium 1 % topical gel 2 g TP TID #100 g 04/15/19 [Last Taken Unknown] levothyroxine 125 mcg tablet 125 mcg PO DAILY #30 tab 05/13/19 [Last Taken Unknown] - History of Present Ilness Narrative: patient presents to ed with c/o cough and increased confusion. known hx of dementia and copd Timing: constant, getting worse Severity: moderate Frequency/Possible Cause: Reports: frequent episodes Modifying Factors - Improves: Reports: nothing Modifying Factors - Worsens: Reports: nothing Associated Symptoms: Reports: cough, shortness of breath, dizziness, lightheadedness Prior Treatment: Reports: recently seen, treated by physician Review of Systems - Review of Systems Constitutional: Present: See HPI EYE: Present: no symptoms reported ENT: Present: no symptoms reported Respiratory: Present: shortness of breath, orthopnea, wheezing Cardiology: Present: no symptoms reported Gastrointestinal/Abdominal: Present: no symptoms reported Genitourinary: Present: no symptoms reported Musculoskeletal: Present: no symptoms reported Skin: Present: no symptoms reported Neurological: Present: other - confusion Hematologic/Lymphatic: Present: no symptoms reported Psych: Present: no symptoms reported All Other Systems: All systems neg except as marked Medical History (Last Reviewed 05/16/19 @ 02:34 by Domo Graves MD) Alzheimers disease (Chronic) Anxiety COPD (chronic obstructive pulmonary disease) Hypothyroidism Lung abscess Osteoarthritis Crohns disease Onset Date: Unknown History of insomnia Onset Date: 11/07/15 History of cerebrovascular accident in adulthood Onset Date: ~2000 History of pneumonia Onset Date: 06/24/12 Surgical History: Surgical History (Last Reviewed 05/16/19 @ 02:34 by Domo Graves MD) History of cataract surgery History of cholecystectomy History of ovarian cystectomy History of thyroid surgery History of appendectomy Onset Date: ~1969 History of bronchoscopy Onset Date: 03/13/152011 Dr Jone Saldana Bagvivian-benign cellular elements. No pathogens History of colonoscopy Onset Date: 02/12/11 Tinguely -tubular adenoma History of hysterectomy Onset Date: ~1979 complete History of salpingo-oophorectomy Onset Date: ~1998 Dr Dolan bilateral History of tonsillectomy Onset Date: Unknown Family History: Family History (Last Reviewed 05/16/19 @ 02:34 by Domo Graves MD) Father , age 60 Myocardial infarction Mother , age 62 Myocardial infarction Heart disease Diabetes Social History: (Last Updated 05/16/19 @ 02:48 by Domo Graves MD) Social History: Marital status: number of children: 2 current occupational status: disabled Highest education level completed: 11th grade Service: No Tobacco: Smoking Status: Former smoker Alcohol: alcohol intake: former Substance Use: substance use type: does not use Dietary Habits: caffeine: Yes Moni/Presybeterian: special moni needs: No Physical Exam - Physical Exam General Appearance: Present: mild distress, anxious Head Exam: Present: normal inspection, no evidence of injury Eye Exam: Normal inspection: bilateral, PERRL: bilateral, EOMI: bilateral Ears, Nose, Throat: Present: normal ENT inspection, normal pharynx Neck: Present: normal inspection, nontender Respiratory: Present: respiratory distress, decreased breath sounds, rales, rhonchi, wheezing Cardiovascular/Chest: Present: regular rate, rhythm, no murmur, normal peripheral pulses Gastrointestinal/Abdominal: Present: normal bowel sounds, nontender, nondistended, soft, no organomegaly Back Exam: Present: normal inspection, normal range of motion, no CVA tenderness, no vertebral tenderness Extremity Exam: Present: normal inspection, non-tender, normal range of motion, no edema Neurological Exam: Present: alert, oriented, normal mood/affect, no motor/sensory deficits Skin Exam: Present: normal color, warm/dry Lymphatic Exam: Present: no adenopathy Progress - Date and Time Seen: Date and Time: 07/12/19 01:32 patient improved, case discussed with dr aponte to admit to observation - Results and Orders Patient's Lab Results:: I have reviewed the patient's lab results. - Vital Signs Patient's Vital Signs:: I have reviewed the patient's vital signs. Vital Signs: Vital Signs 07/11/19 23:27 Temperature 36.7 C Pulse Rate 140 H Respiratory Rate 26 H Blood Pressure 150/88 H O2 Sat by Pulse Oximetry 92 L - EKG EKG #1 EKG: supraventricular tachycardia - X-Ray X-Ray #1 X-Ray: chest Interpretation: Interp. by me - copd with cavitary lesion lower right lung - Progress/Reassessment Chief Complaint: Cough Progress:: Improved - Transfer of Care Expected Disposition: Admit Plan - Plan Plan: to admit to observation Departure Clinical Impression: COPD (chronic obstructive pulmonary disease), Acute exacerbation of chronic obstructive pulmonary disease (COPD) - Departure Disposition: Short Term Hospital Inpatient Condition: Serious Referrals: Domo Graves MD [Primary Care Provider] -
[2019-07-12 00:40] LABS: Hemoglobin 12.9 gm/dL (12.5-16.0); Mean Cell Volume 92.1 fl (78-100); Mean Corpuscular Hemoglobin 27.6 pg (27-31); Mean Platelet Volume 10.4 fl (8-12.5); Neutrophil # 7.1 K/mm3 (1.3-6.0); Neutrophil % 79.1 % (42-75.0); Platelet Count 323 K/mm3 (150-450); Red Blood Count 4.67 M/mm3 (4.2-5.4); Red Cell Distribution Width 14.4 % (11.5-14.0)
[2019-07-12 01:02] LABS: ALT 10 U/L (19-67); AST 13 U/L (0-48); Albumin * 3.4 gm/dl (3.4-5.0); Alkaline Phosphatase * 139 U/L (50-170); Anion Gap 12.1 mmol/L (6.8-13.8); BNP * 127 pg/mL (5-325); BUN/Creatinine Ratio 23.2 (9.0-21.6); Bilirubin, Total 0.3 mg/dL (0.0-1.1); Blood Urea Nitrogen 23 mg/dL (3-23); Ca. Corrected For Albumin 9.1 mg/dL (8.4-10.2); Calcium * 8.9 mg/dL (7.9-10.9); Carbon Dioxide 31.8 mmol/L (24-32.6); Chloride 104 mmol/L (97-106); Glucose * 138 mg/dL (70-110); Potassium 3.9 mmol/L (3.4-4.6); Sodium 144 mmol/L (132-142); Total Protein 7.2 gm/dL (6.2-8.2); Troponin I Less than 0.017 ng/mL (0.00-0.10)
[2019-07-12] MEDS ORDERED: METHYLPREDNISOLONE SOD SUCC/PF 40 MG/ML VIAL IV ONE (01:26)
[2019-07-12] MEDS ORDERED: cefTRIAXone SODIUM 1,000 MG/100 ML BAG IV ONE (01:26)
[2019-07-12] MEDS ORDERED: ALBUTEROL SULFATE 2.5 MG/0.5 ML VIAL.NEB IH PRN (01:44)
[2019-07-12] MEDS ORDERED: METHYLPREDNISOLONE SOD SUCC/PF 40 MG/ML VIAL IV SCH (01:45)
[2019-07-12] MEDS ORDERED: METHYLPREDNISOLONE SOD SUCC/PF 125 MG/2 ML VIAL IV SCH (08:00)
[2019-07-12 08:29] LABS: Urine Bilirubin Negative (NEGATIVE); Urine Blood Negative /ul (NEGATIVE); Urine Ketone Negative (NEGATIVE); Urine Nitrite Negative (NEGATIVE); Urine Protein Negative (NEGATIVE); Urine Urobilinogen Normal (NORMAL); Urine pH 6.5 pH (5.0-7.0)
[2019-07-12 08:41] LABS: Urine Appearance Slightly Cloudy (CLEAR); Urine Color Yellow; Urine RBC None Seen /hpf (0-5); Urine WBC 0-5 /hpf (0-5)
[2019-07-12 08:42] LABS: Urine Bacteria None Seen
--- NOTE | 2019-07-12 17:27 | HP ---
Chief Complaint - Chief Complaint Date of Service: 07/12/19 Time of Service: 11:30 Chief Complaint: Feels bad all over History of Present Illness: Lynn was admitted early this morning with a diagnosis of acute exacerbation of COPD. She was started on antibiotics, steroids and nebulized medication. She is a fair historian. Her report to me is that three days ago she began to tremble all over. There has been no fever with this entire illness. Yesterday she felt like bugs were crawling under her skin and she continued to tremble. She was coughing, but isn't sure any more than usual. Last night she became entirely confused and disoriented all of a sudden. Today she is much better, but still shaking. Medical History (Last Reviewed 07/12/19 @ 17:17 by Domo Graves MD) Alzheimers disease (Chronic) COPD (chronic obstructive pulmonary disease) Anxiety Hypothyroidism Lung abscess Osteoarthritis Crohns disease Onset Date: Unknown History of insomnia Onset Date: 11/07/15 History of cerebrovascular accident in adulthood Onset Date: ~1999 History of pneumonia Onset Date: 06/24/12 Surgical History: Surgical History (Last Reviewed 07/12/19 @ 17:17 by Domo Graves MD) History of cataract surgery History of cholecystectomy History of ovarian cystectomy History of thyroid surgery History of appendectomy Onset Date: ~1969 History of bronchoscopy Onset Date: 03/13/152011 Dr Jone Saldana Bagan-benign cellular elements. No pathogens History of colonoscopy Onset Date: 02/12/11 Tinguely -tubular adenoma History of hysterectomy Onset Date: ~1979 complete History of salpingo-oophorectomy Onset Date: ~1998 Dr Dolan bilateral History of tonsillectomy Onset Date: Unknown Family History: Family History (Last Reviewed 07/12/19 @ 17:17 by Domo Graves MD) Father , age 60 Myocardial infarction Mother , age 62 Myocardial infarction Heart disease Diabetes Social History: (Last Reviewed 07/12/19 @ 17:17 by Domo Graves MD) Social History: Marital status: number of children: 2 current occupational status: disabled Highest education level completed: 11th grade Service: No Tobacco: Smoking Status: Former smoker Alcohol: alcohol intake: former Substance Use: substance use type: does not use Dietary Habits: caffeine: Yes Moni/Protestant: special moni needs: No Review Of Systems (GEN) - Review of Systems Generalized/Overall Review: Present: Malaise. Absent: Chills, Fever EENTM: Present: No Symptoms Reported Respiratory: Present: Cough. Absent: Shortness of Breath, Wheezing Cardiac: Absent: Chest Pain, Palpitations Abdominal: Present: No Symptoms Reported Genitourinary: Present: No Symptoms Reported Musculoskeletal: Present: Other - bilateral chronic lower leg pain Neurological: Present: Anxiety, Tingling, Tremors, Weakness. Absent: Seizure Skin: Present: No Symptoms Reported Endocrine: Present: Intolerance to Cold, Intolerance to Heat Misc: All systems neg except as marked Immunizations: IMMUNIZATION HX Immunizations Up to Date Yes History of Influenza Vaccine Yes Hx Pneumococcal Vaccination No Allergies/Adverse Reactions: Allergies Allergy/AdvReac Type Severity Reaction Status Date / Time codeine [Codeine] AdvReac Mild Vomiting Verified 05/13/19 13:36 Home Medications: HOME MEDICATIONS albuterol sulfate 2.5 mg INHALATION Q4H PRN #25 vial.neb 02/25/19 [Last Taken Unknown] acetaminophen 500 mg tablet 1,000 mg PO Q6H #0.1 tab 04/15/19 [Last Taken Unknown] diclofenac sodium 1 % topical gel 2 g TP TID #100 g 04/15/19 [Last Taken Unknown] levothyroxine 125 mcg tablet 125 mcg PO DAILY #30 tab 05/13/19 [Last Taken Unknown] Exam - Exam Vital Signs: Vital Signs - Last Taken Temp 36.4 C 07/12/19 14:43 Pulse 98 07/12/19 14:43 Resp 20 07/12/19 14:43 BP 136/85 07/12/19 14:43 Pulse Ox 98 07/12/19 14:43 Constitutional: Present: Alert, Oriented x3, Cooperative, Well developed, Elderly, Looks Older than stated age ENT Exam: Present: normal ENT inspection, hearing grossly normal Eye Exam: bilateral eye: normal inspection, PERRL, EOMI Neck: Present: normal inspection. Absent: lymphadenopathy (R), lymphadenopathy (L), thyromegaly Back Exam: Present: normal inspection Respiratory: Present: lungs clear, no respiratory distress Cardiovascular/Chest: Present: regular rate, rhythm, no chest tenderness, no edema, no gallop, no JVD, no murmur Peripheral Pulses: carotid (R): 1+, carotid (L): 1+ Abdomen: Present: Normal bowel sounds, soft, nontender, nondistended, no hepatospenomegaly, no masses /Rectal: Present: Exam deferred Extremity: Present: non-tender, normal capillary refill Skin Exam: Present: normal color, warm/dry, no cyanosis Lymphatic: Present: no adenopathy Neurologic: Present: alert, normal mood/affect Appearance: Present: appropriate appearance, neat. Absent: appropriate insight Eye contact: Present: cooperative, good eye contact, normal speech Thoughts: Present: normal thought pattern Diagnostic Studies: Abnormal Lab Results 07/11/19 07/11/19 07/12/19 Range/Units 00:30 00:30 00:36 MCHC 30.0 L (32-36) g/dl RDW 14.4 H (11.5-14.0) % Neutrophils % 79.1 H (42-75.0) % Lymphocytes % 10.1 L (20-51) % Neutrophils # 7.1 H (1.3-6.0) K/mm3 Lymphocytes # 0.91 L (1.5-3.5) k/mm3 pO2 71.7 L (83.0-108.0) mmHg Total CO2 26.3 H (19.0-24.0) mmol/L Sodium 144 H (132-142) mmol/L Plasma Sodium 145 H (130-142) mmol/L Est GFR (Non-Af Amer) 59 L D (60-130) mL/min BUN/Creatinine Ratio 23.2 H (9.0-21.6) Random Glucose 138 H (70-110) mg/dL ALT 10 L (19-67) U/L C-Reactive Prot, Quant 1.0 H (0.0-0.9) mg/dL Ur Epithelial Cells (0-5) /hpf 07/12/19 Range/Units 08:23 MCHC (32-36) g/dl RDW (11.5-14.0) % Neutrophils % (42-75.0) % Lymphocytes % (20-51) % Neutrophils # (1.3-6.0) K/mm3 Lymphocytes # (1.5-3.5) k/mm3 pO2 (83.0-108.0) mmHg Total CO2 (19.0-24.0) mmol/L Sodium (132-142) mmol/L Plasma Sodium (130-142) mmol/L Est GFR (Non-Af Amer) (60-130) mL/min BUN/Creatinine Ratio (9.0-21.6) Random Glucose (70-110) mg/dL ALT (19-67) U/L C-Reactive Prot, Quant (0.0-0.9) mg/dL Ur Epithelial Cells 5-10 H (0-5) /hpf Laboratory Results WBC 9.0 K/mm3 (4.0-10.5) 07/11/19 00:30 RBC 4.67 M/mm3 (4.2-5.4) 07/11/19 00:30 Hgb 12.9 gm/dL (12.5-16.0) 07/11/19 00:30 Hct 43.0 % (37.0-47.0) 07/11/19 00:30 MCV 92.1 fl (78-100) 07/11/19 00:30 MCH 27.6 pg (27-31) 07/11/19 00:30 MCHC 30.0 g/dl (32-36) L 07/11/19 00:30 RDW 14.4 % (11.5-14.0) H 07/11/19 00:30 Plt Count 323 K/mm3 (150-450) 07/11/19 00:30 MPV 10.4 fl (8-12.5) 07/11/19 00:30 Immature Gran % (Auto) 0.30 % (0.001-0.429) 07/11/19 00:30 Immature Gran # (Auto) 0.03 K/mm3 (0.000-0.0310) 07/11/19 00:30 Neutrophils % 79.1 % (42-75.0) H 07/11/19 00:30 Lymphocytes % 10.1 % (20-51) L 07/11/19 00:30 Monocytes % 7.4 % (0.0-9) 07/11/19 00:30 Eosinophils % 2.5 % (0.0-3.0) 07/11/19 00:30 Basophils % 0.6 % (0.0-1.0) 07/11/19 00:30 Nucleated RBC % 0.0 k/mm3 (0-1) 07/11/19 00:30 Neutrophils # 7.1 K/mm3 (1.3-6.0) H 07/11/19 00:30 Lymphocytes # 0.91 k/mm3 (1.5-3.5) L 07/11/19 00:30 Monocytes # 0.7 k/mm3 (0.0-1.0) 07/11/19 00:30 Eosinophils # 0.2 k/mm3 (0.0-0.7) 07/11/19 00:30 Absolute Basophils 0.1 k/mm3 (0.0-0.1) 07/11/19 00:30 pCO2 38.6 mmHg (32.0-45.0) 07/12/19 00:36 pO2 71.7 mmHg (83.0-108.0) L 07/12/19 00:36 HCO3 25.2 mmol/L (21.0-28.0) 07/12/19 00:36 Total CO2 26.3 mmol/L (19.0-24.0) H 07/12/19 00:36 Base Excess 1.0 mmol/L (-2.0-3.0) 07/12/19 00:36 ABG pH 7.43 (7.35-7.45) 07/12/19 00:36 ABG O2 Sat (Measured) 94.9 % (94.0-98.0) 07/12/19 00:36 Sodium 144 mmol/L (132-142) H 07/11/19 00:30 Plasma Sodium 145 mmol/L (130-142) H 07/11/19 00:30 Potassium 3.9 mmol/L (3.4-4.6) 07/11/19 00:30 Chloride 104 mmol/L (97-106) 07/11/19 00:30 Carbon Dioxide 31.8 mmol/L (24-32.6) 07/11/19 00:30 Anion Gap 12.1 mmol/L (6.8-13.8) 07/11/19 00:30 BUN 23 mg/dL (3-23) 07/11/19 00:30 Creatinine 0.99 mg/dL (0.4-1.4) 07/11/19 00:30 Est GFR (Non-Af Amer) 59 mL/min (60-130) L D 07/11/19 00:30 BUN/Creatinine Ratio 23.2 (9.0-21.6) H 07/11/19 00:30 Random Glucose 138 mg/dL (70-110) H 07/11/19 00:30 Lactic Acid, Venous 1.3 mmol/L (0.4-2.0) 07/12/19 00:30 Calcium 8.9 mg/dL (7.9-10.9) 07/11/19 00:30 Calcium Adj for Albumin 9.1 mg/dL (8.4-10.2) 07/11/19 00:30 Total Bilirubin 0.3 mg/dL (0.0-1.1) 07/11/19 00:30 AST 13 U/L (0-48) 07/11/19 00:30 ALT 10 U/L (19-67) L 07/11/19 00:30 Alkaline Phosphatase 139 U/L (50-170) 07/11/19 00:30 Troponin I Less than 0.017 ng/mL (0.00-0.10) 07/11/19 00:30 C-Reactive Prot, Quant 1.0 mg/dL (0.0-0.9) H 07/11/19 00:30 B-Natriuretic Peptide 127 pg/mL (5-325) 07/11/19 00:30 Total Protein 7.2 gm/dL (6.2-8.2) 07/11/19 00:30 Albumin 3.4 gm/dl (3.4-5.0) 07/11/19 00:30 Urine Color Yellow 07/12/19 08:23 Urine Appearance Slightly cloudy (CLEAR) 07/12/19 08:23 Urine pH 6.5 pH (5.0-7.0) 07/12/19 08:23 Ur Specific [place] 1.020 SP.GR. (1.005-1.010) 07/12/19 08:23 Urine Protein Negative mg/dL (NEGATIVE) 07/12/19 08: Urine Glucose (UA) Negative mg/dL (NEGATIVE) 07/12/19 08: Urine Ketones Negative mg/dL (NEGATIVE) 07/12/19 08: Urine Blood Negative /ul (NEGATIVE) 07/12/19 08: Urine Nitrate Negative (NEGATIVE) 07/12/19 08:23 Urine Bilirubin Negative mg/dl (NEGATIVE) 07/12/19 08:23 Urine Urobilinogen Normal EU/dl (NORMAL) 07/12/19 08:23 Ur Leukocyte Esterase Negative /ul (NEGATIVE) 07/12/19 08:23 Urine RBC None seen /hpf (0-5) 07/12/19 08:23 Urine WBC 0-5 /hpf (0-5) 07/12/19 08:23 Ur Epithelial Cells 5-10 /hpf (0-5) H 07/12/19 08:23 Urine Bacteria None seen (NONE) 07/12/19 08:23 Urine Culture Comments No culture indicated 07/12/19 08:23 Influenza Type A Ag Negative (NEGATIVE) 07/12/19 00:40 Influenza Type B Ag Negative (NEGATIVE) 07/12/19 00:40 ABGs not bad. wbc normal. sodium a little high. kidney function stable. will recheck labs tomorrow. will taper O2 if able, goal to keep O2 sat more than 89. Assessment/Plan - Assessment/Plan (1) Delirious Assessment: I think this may be the primary diagnosis, associated with Alzheimers. as she is still shaking today we will try risperidal and see if it could be helpful. we will do an MRI of the brain and EEG although she has had these before. when I saw her today there was no one else in the room. no longer needs telemetry. Problem: Acute (2) Acute bronchitis Assessment: admitted with a diagnosis of acute bronchitis, on top of copd. I'm not sure this is the actual problem, but we will continue antibiotics and steroids for now. Problem: Acute Qualifiers: Bronchitis organism: unspecified organism (3) Alzheimers disease Problem: Chronic Qualifiers: Dementia behavioral disturbance: without behavioral disturbance (4) Cavitary lesion of lung Assessment: on xray appears the same today. Problem: Chronic (5) COPD (chronic obstructive pulmonary disease) Problem: Chronic (6) Leg pain, bilateral Assessment: diclofenac gel works well for this at home. Problem: Chronic
[2019-07-12] MEDS: risperiDONE 0.25 MG TABLET PO SCH (18:09)
[2019-07-12] MEDS: METHYLPREDNISOLONE SOD SUCC/PF 40 MG/ML VIAL IV SCH (21:30)
[2019-07-12] MEDS: DICLOFENAC SODIUM 100 APPL TUBE TP SCH (21:32)
[2019-07-13 06:39] LABS: Hematocrit 38.7 % (37.0-47.0); Hemoglobin 11.7 gm/dL (12.5-16.0); Mean Cell Volume 91.3 fl (78-100); Mean Corpuscular Hemoglobin 27.6 pg (27-31); Mean Corpuscular Hgb Conc 30.2 g/dl (32-36); Mean Platelet Volume 11.5 fl (8-12.5); Neutrophil # 8.5 K/mm3 (1.3-6.0); Platelet Count 211 K/mm3 (150-450); Red Blood Count 4.24 M/mm3 (4.2-5.4); Red Cell Distribution Width 14.3 % (11.5-14.0); White Blood Count 9.1 K/mm3 (4.0-10.5)
[2019-07-13 06:40] LABS: Anion Gap 12.6 mmol/L (6.8-13.8); BUN/Creatinine Ratio 31.3 (9.0-21.6); Calcium * 8.9 mg/dL (7.9-10.9); Carbon Dioxide 27.7 mmol/L (24-32.6); Estimated Creat Clear 60.6; Potassium 5.3 mmol/L (3.4-4.6)
[2019-07-13] MEDS ORDERED: LEVOTHYROXINE SODIUM 125 MCG TABLET PO SCH (07:00)
[2019-07-13] MEDS: risperiDONE 0.25 MG TABLET PO SCH (08:37)
[2019-07-13] MEDS: DICLOFENAC SODIUM 100 APPL TUBE TP SCH (08:38)
[2019-07-13] MEDS: METHYLPREDNISOLONE SOD SUCC/PF 40 MG/ML VIAL IV SCH (08:42)
--- NOTE | 2019-07-13 10:04 | DS ---
(1) Acute exacerbation of chronic obstructive pulmonary disease (COPD) Problem: Acute (2) Acute bronchitis Problem: Acute Qualifiers: Bronchitis organism: unspecified organism (3) Delirious Problem: Acute (4) Alzheimers disease Problem: Chronic Qualifiers: Dementia behavioral disturbance: without behavioral disturbance (5) Lung cyst Problem: Chronic (6) Anxiety Problem: Acute (7) Hypothyroidism Problem: Chronic Qualifiers: Hypothyroidism type: acquired Qualified Code(s): E03.9 - Hypothyroidism, unspecified (8) Hypertension Problem: Chronic Qualifiers: Hypertension type: essential hypertension Qualified Code(s): I10 - Essential (primary) hypertension Date of Discharge:: 07/13/19 Hospital Course: 69-year-old female with a past medical history of COPD, Alzheimer's disease, anxiety, hypothyroidism, osteoarthritis, Crohn's disease, CVA presents from home with complaints of malaise. She was admitted for acute exacerbation of COPD. She was started on steroids and ceftriaxone. She had an episode delirium and shaking yesterday and her PCP started her on Risperdal. MRI and EEG are performed. MRI that did not show any acute abnormalities. EEG read is pending. She is stable to be discharged home today. She will follow-up with her PCP and 1 to 2 weeks of discharge. I will send her home on 5 more days of Cefpodoxime, and 3 more days of prednisone. Procedures Performed: none Results and Findings: Pending Mircobiology Results 07/11/19 01:10 Blood Blood Culture - Preliminary NO GROWTH 24 HOURS 07/11/19 00:30 Blood Blood Culture - Preliminary NO GROWTH 24 HOURS Lab Pending Results 07/11/19 00:30: Sodium 144 H, Plasma Sodium 145 H, Potassium 3.9, Chloride 104, Carbon Dioxide 31.8, Anion Gap 12.1, BUN 23, Creatinine 0.99, Est GFR (Non-Af Amer) 59 L D, BUN/Creatinine Ratio 23.2 H, Random Glucose 138 H, Calcium 8.9, Calcium Adj for Albumin 9.1, Total Bilirubin 0.3, AST 13, ALT 10 L, Alkaline Phosphatase 139, Troponin I Less than 0.017, C-Reactive Prot, Quant 1.0 H, B- Natriuretic Peptide 127, Total Protein 7.2, Albumin 3.4 07/11/19 00:30: WBC 9.0, RBC 4.67, Hgb 12.9, Hct 43.0, MCV 92.1, MCH 27.6, MCHC 30.0 L, RDW 14.4 H, Plt Count 323, MPV 10.4, Immature Gran % (Auto) 0.30, Immature Gran # (Auto) 0.03, Neutrophils % 79.1 H, Lymphocytes % 10.1 L, Monocytes % 7.4, Eosinophils % 2.5, Basophils % 0.6, Nucleated RBC % 0.0, Neutrophils # 7.1 H, Lymphocytes # 0.91 L, Monocytes # 0.7, Eosinophils # 0.2, Absolute Basophils 0.1 07/12/19 00:30: Lactic Acid, Venous 1.3 07/12/19 00:36: pCO2 38.6, pO2 71.7 L, HCO3 25.2, Total CO2 26.3 H, Base Excess 1.0, ABG pH 7.43, ABG O2 Sat (Measured) 94.9 07/12/19 00:40: Influenza Type A Ag Negative, Influenza Type B Ag Negative 07/12/19 08:23: Urine Color Yellow, Urine Appearance Slightly cloudy, Urine pH 6.5, Ur Specific [place] 1.020, Urine Protein Negative, Urine Glucose (UA) Negative, Urine Ketones Negative, Urine Blood Negative, Urine Nitrate Negative, Urine Bilirubin Negative, Urine Urobilinogen Normal, Ur Leukocyte Esterase Negative, Urine RBC None seen, Urine WBC 0-5, Ur Epithelial Cells 5-10 H, Urine Bacteria None seen, Urine Culture Comments No culture indicated 07/13/19 06:15: WBC 9.1, RBC 4.24, Hgb 11.7 L, Hct 38.7, MCV 91.3, MCH 27.6, MCHC 30.2 L, RDW 14.3 H, Plt Count 211, MPV 11.5, Immature Gran % (Auto) 0.40, Immature Gran # (Auto) 0.04 H, Neutrophils % 93.0 H, Lymphocytes % 3.8 L, Monocytes % 2.4, Eosinophils % 0.3, Basophils % 0.1, Nucleated RBC % 0.0, Neutrophils # 8.5 H, Lymphocytes # 0.35 L, Monocytes # 0.2, Eosinophils # 0.0, Absolute Basophils 0.0 07/13/19 06:15: Sodium 139, Plasma Sodium 140, Potassium 5.3 H D, Chloride 104, Carbon Dioxide 27.7, Anion Gap 12.6, BUN 21, Creatinine 0.67, Est GFR (Non-Af Amer) 93 D, BUN/Creatinine Ratio 31.3 H, Random Glucose 145 H, Calcium 8.9 07/13/19 08:26: Potassium 4.7 H Discharge Location: Home Disposition: Home self-care Condition: Stable Discharge Activity: Activity as tolerated Discharge Diet: General/regular food Additional Patient Instructions (free text): Will be a TCM appointment. Prescriptions (Any new or edited meds): Cefpodoxime Proxetil 200 mg PO BID #10 tab Transmission Status: Pending to [place] predniSONE [Prednisone] 2 tab PO DAILY #6 tab Transmission Status: Pending [place] risperiDONE [Risperdal] 0.25 mg PO BID #12 tab Transmission Status: Pending to [place], [place] Complete Home Medications List: Complete Home Medication List: albuterol sulfate 2.5 mg INHALATION Q4H PRN #25 vial.neb 02/25/19 acetaminophen 500 mg tablet 1,000 mg PO Q6H #0.1 tab 04/15/19 diclofenac sodium 1 % topical gel 2 g TP TID #100 g 04/15/19 levothyroxine 125 mcg tablet 125 mcg PO DAILY #30 tab 05/13/19 Cefpodoxime Proxetil 200 mg PO BID #10 tab 07/13/19 predniSONE [Prednisone] 2 tab PO DAILY #6 tab 07/13/19 risperiDONE [Risperdal] 0.25 mg PO BID #12 tab 07/13/19
[2019-07-13 10:35] VITALS: BP 124/62
== END 2019-07-13 11:10 | disposition home or self-care (01) ==
LOC: MS 23:23 → ER 23:23
PROVIDERS: ADMIT Family Medicine; ATTEND Allergy & Immunology
DX: J98.4 Other disorders of lung; G30.9 Alzheimer's disease, unspecified; J44.1 Chronic obstructive pulmonary disease with (acute) exacerbation; J20.9 Acute bronchitis, unspecified; F02.80 Dementia in other diseases classified elsewhere, unspecified severity, without behavioral disturbance, psychotic disturbance, mood disturbance, and anxiety; I10 Essential (primary) hypertension; F41.9 Anxiety disorder, unspecified; R41.0 Disorientation, unspecified
CPT/HCPCS: 36415; 36600; 70553; 71020; 71046; 80048; 80053; 81001; 82803; 83519; 83605; 83880; 84132; 84484; 85025; 86140; 87040; 87400; 87449; 93005; 94640; 94664; 94760; 95812; 95816; 96365; 96366; 96375; 99283; 99285; A9576; G0378

== ENCOUNTER 2019-11-23 13:02 | Observation (INO) ==
[2019-11-23] MEDS ORDERED: ONDANSETRON HCL/PF 2 MG/ML VIAL IV ONE (13:26)
--- NOTE | 2019-11-23 13:35 | ERNOTE ---
Back Pain ER HPI Date of Service: 11/23/19 - Worsening SOB, vomiting back pain Time Seen by Provider: 11/23/19 13:14 Source: patient Exam Limitations: clinical condition Immunizations: IMMUNIZATION HX Immunizations Up to Date Yes History of Influenza Vaccine No Hx Pneumococcal Vaccination Yes Allergies/Adverse Reactions: Allergies codeine [Codeine] Adverse Reaction (Mild, Verified 11/23/19 13:07) Vomiting Home Medications: HOME MEDICATIONS albuterol sulfate 2.5 mg INHALATION Q4H PRN #25 vial.neb 02/25/19 [Last Taken Unknown] acetaminophen 500 mg tablet 1,000 mg PO Q6H #0.1 tab 04/15/19 [Last Taken Unknown] levothyroxine 125 mcg tablet 125 mcg PO DAILY #30 tab 05/13/19 [Last Taken Unknown] diclofenac sodium 1 % topical gel 2 g TP QID #300 g 07/22/19 [Last Taken Unknown] lorazepam 2 mg/mL oral concentrate 0.15 mg PO QID #30 ml 07/22/19 [Last Taken Unknown] Date (Duration): 11/22/19 Time (Timing): 07:00 Timing: Reports: getting worse Quality/Severity: Reports: moderate Location of pain: Reports: mid back - To lower back and legs chronically Activities at Onset: Reports: none Recent Injury?: Reports: no Possible Precipitating Factor: Reports: none Modifying Factors - (Worsens): Reports: upright position - Any movement makes her more SOB and painful. Associated Symptoms: Reports: nausea/vomiting, difficulty walking, lightheadedness. Denies: fever/chills Review of Systems - Review of Systems Constitutional: Present: See HPI, weakness, fatigue EYE: Present: no symptoms reported ENT: Present: no symptoms reported Respiratory: Present: shortness of breath, cough, wheezing Cardiology: Present: no symptoms reported Gastrointestinal/Abdominal: Present: nausea, vomiting Genitourinary: Present: no symptoms reported Musculoskeletal: Present: back pain Skin: Present: no symptoms reported Neurological: Present: no symptoms reported Endocrine: Present: no symptoms reported Hematologic/Lymphatic: Present: See HPI Psych: Present: anxiety Medical History (Last Reviewed 11/23/19 @ 13:33 by Domo Maier MD) Alzheimers disease (Chronic) Anxiety COPD (chronic obstructive pulmonary disease) Hypothyroidism Lung abscess Osteoarthritis Crohns disease Onset Date: Unknown History of insomnia Onset Date: 11/07/15 History of cerebrovascular accident in adulthood Onset Date: ~1999 History of pneumonia Onset Date: 06/24/12 Surgical History: Surgical History (Last Reviewed 11/23/19 @ 13:33 by Domo Maier MD) History of cataract surgery History of cholecystectomy History of ovarian cystectomy History of thyroid surgery History of appendectomy Onset Date: ~1969 History of bronchoscopy Onset Date: 03/13/152011 Dr Becerril 2015 [place]-benign cellular elements. No pathogens History of colonoscopy Onset Date: 02/12/11 Tinguely -tubular adenoma History of hysterectomy Onset Date: ~1979 1979' complete History of salpingo-oophorectomy Onset Date: ~1998 Dr Dolan bilateral History of tonsillectomy Onset Date: Unknown Family History: Family History (Last Reviewed 11/23/19 @ 13:33 by Domo Maier MD) Father , age 60 Myocardial infarction Mother , age 62 Myocardial infarction Heart disease Diabetes Social History: (Last Reviewed 11/23/19 @ 13:33 by Domo Maier MD) Social History: Marital status: number of children: 2 current occupational status: disabled Highest education level completed: 11th grade Service: No Tobacco: Smoking Status: Former smoker Alcohol: alcohol intake: former Substance Use: substance use type: does not use Dietary Habits: caffeine: Yes Moni/Restoration: special moni needs: No Physical Exam - Physical Exam General Appearance: Present: wd/wn, severe distress, anxious - SOB Head Exam: Present: normal inspection - No oral cyanosis but tachypneic. Eye Exam: Normal inspection: bilateral Ears, Nose, Throat: Present: normal ENT inspection Neck: Present: normal inspection Respiratory: Present: accessory muscle use, decreased breath sounds Cardiovascular/Chest: Present: tachycardia Gastrointestinal/Abdominal: Present: normal bowel sounds, soft Extremity Exam: Present: normal except - - very slender legs, malnourished. Neurological Exam: Present: alert, oriented - tearful, apologies for troubling me. Skin Exam: Present: normal color, warm/dry. Absent: cyanosis Progress - Results and Orders Patient's Lab Results:: I have reviewed the patient's lab results. Results and Orders: Laboratory Tests 11/23/19 11/23/19 11/23/19 13:35 13:35 14:00 WBC 10.8 H RBC 5.52 H Hgb 15.3 Hct 50.4 H pCO2 32.4 pO2 65.6 L HCO3 20.1 L Total CO2 21.1 Base Excess -3.5 L ABG pH 7.41 ABG O2 Sat (Measured) 93.4 L BUN 11 Creatinine 0.81 - Vital Signs Patient's Vital Signs:: I have reviewed the patient's vital signs. Vital Signs: Vital Signs 11/23/19 13:02 Temperature 36.0 C Pulse Rate 128 H Respiratory Rate 22 H Blood Pressure 136/98 H O2 Sat by Pulse Oximetry 95 - X-Ray X-Ray #1 X-Ray: chest Interpretation: Interp. by me X-ray Comments: Large air-fluid level in [place] just right of heart shadow. Minimal change since September 2019. - Progress/Reassessment Chief Complaint: Back Pain Departure Clinical Impression: Dyspnea on minimal exertion, Acute exacerbation of chronic obstructive pul monary disease (COPD) - Departure Disposition: Short Term Hospital Inpatient Condition: Fair Additional Instructions: Discussed with Dr. Kwok who agrees to admission. Referrals: Domo Graves MD [Primary Care Provider] -
[2019-11-23] MEDS: NORMAL SALINE 1,000 ML IV PRN ×2 (13:45→22:01)
[2019-11-23 14:04] LABS: Hematocrit 50.4 % (37.0-47.0); Hemoglobin 15.3 gm/dL (12.5-16.0); Mean Cell Volume 91.3 fl (78-100); Mean Corpuscular Hemoglobin 27.7 pg (27-31); Mean Corpuscular Hgb Conc 30.4 g/dl (32-36); Mean Platelet Volume 10.8 fl (8-12.5); Neutrophil # 8.4 K/mm3 (1.3-6.0); Neutrophil % 77.2 % (42-75.0); Platelet Count 326 K/mm3 (150-450); Red Blood Count 5.52 M/mm3 (4.2-5.4); Red Cell Distribution Width 15.6 % (11.5-14.0); White Blood Count 10.8 K/mm3 (4.0-10.5)
[2019-11-23 14:18] LABS: ALT 8 U/L (19-67); AST 22 U/L (0-48); Albumin * 2.9 gm/dl (3.4-5.0); Alkaline Phosphatase * 113 U/L (50-170); BUN/Creatinine Ratio 13.6 (9.0-21.6); Bilirubin, Total 0.9 mg/dL (0.0-1.1); Blood Urea Nitrogen 11 mg/dL (3-23); Ca. Corrected For Albumin 9.9 mg/dL (8.4-10.2); Calcium * 9.3 mg/dL (7.9-10.9); Carbon Dioxide 28.1 mmol/L (24-32.6); Chloride 102 mmol/L (97-106); Glucose * 114 mg/dL (70-110); Potassium 3.1 mmol/L (3.4-4.6); Sodium 138 mmol/L (132-142); Total Protein 6.2 gm/dL (6.2-8.2); Troponin I Less than 0.017 ng/mL (0.00-0.10)
[2019-11-23 14:44] LABS: Urine Bilirubin 3 mg/dl (NEGATIVE); Urine Blood Negative /ul (NEGATIVE); Urine Ketone 15 mg/dL (NEGATIVE); Urine Nitrite Negative (NEGATIVE); Urine Protein 100 mg/dL (NEGATIVE); Urine Specific Gravity 1.025 SP.GR. (1.005-1.010)
[2019-11-23] MEDS ORDERED: MORPHINE SULFATE 2 MG/ML DISP.SYRIN IV ONE (14:44)
[2019-11-23] MEDS ORDERED: HYDROCORTISONE SOD SUCCINATE 50 MG/ML VIAL IV ONE (14:44)
[2019-11-23] MEDS ORDERED: cefTRIAXone SODIUM 1,000 MG/100 ML BAG IV ONE (14:47)
[2019-11-23 15:12] LABS: Urine Appearance Cloudy (CLEAR); Urine Color Yellow; Urine RBC TRACE /hpf (0-5); Urine WBC 0-5 /hpf (0-5)
[2019-11-23 15:13] LABS: Urine Bacteria 4+; Urine Mucus Moderate - 2+
[2019-11-23] MEDS ORDERED: ENOXAPARIN SODIUM 40 MG/0.4 ML SYRG SC SCH (17:00)
[2019-11-23] MEDS: METHYLPREDNISOLONE SOD SUCC/PF 40 MG/ML VIAL IV SCH (17:34)
[2019-11-23] MEDS ORDERED: ALBUTEROL SULFATE 2.5 MG/0.5 ML VIAL.NEB IH PRN (18:07)
--- NOTE | 2019-11-23 18:43 | HP ---
Chief Complaint - Chief Complaint Date of Service: 11/23/19 Time of Service: 18:23 Chief Complaint: low back pain History of Present Illness: 69 y/o woman with chronic low back and bilateral leg pain, COPD and a chronic right sided lung cyst started having increasing pain in her low back this morning. It became severe enough that it was hard for her to move at all and also hard for her to breath. I think her dyspnea is due to the pain of r espiration because of the increased low back pain. She has also been grieving over a recently, and she mentioned that several times during the course of our conversation tonight. She lives by herself. There has been no cough, fever, chills or sweats. CXR and labs in the ER were non acute. Blood gases are about normal for her. Vitals are most significant for tachypnea, most likely related to pain and anxiety. O2 sats are in the low 90s on room air. No low back xray has yet been done. She was given one dose of steroids and IV antibiotics in the ER this afternoon before admission. Medical History (Last Reviewed 11/23/19 @ 18:28 by Domo Graves MD) Alzheimers disease (Chronic) Anxiety COPD (chronic obstructive pulmonary disease) Hypothyroidism Lung abscess Osteoarthritis Crohns disease Onset Date: Unknown History of insomnia Onset Date: 11/07/15 History of cerebrovascular accident in adulthood Onset Date: ~1999 History of pneumonia Onset Date: 06/24/12 Surgical History: Surgical History (Last Reviewed 11/23/19 @ 18:28 by Domo Graves MD) History of cataract surgery History of cholecystectomy History of ovarian cystectomy History of thyroid surgery History of appendectomy Onset Date: ~1969 History of bronchoscopy Onset Date: 03/13/152011 Dr Jone Winston-benign cellular elements. No pathogens History of colonoscopy Onset Date: 02/12/11 Tinguely -tubular adenoma History of hysterectomy Onset Date: ~1979 complete History of salpingo-oophorectomy Onset Date: ~1998 Dr Dolan bilateral History of tonsillectomy Onset Date: Unknown Family History: Family History (Last Reviewed 11/23/19 @ 18:28 by Domo Graves MD) Father , age 60 Myocardial infarction Mother , age 62 Myocardial infarction Heart disease Diabetes Social History: (Last Reviewed 11/23/19 @ 18:28 by Domo Graves MD) Social History: Marital status: number of children: 2 current occupational status: disabled Highest education level completed: 11th grade Service: No Tobacco: Smoking Status: Former smoker Alcohol: alcohol intake: former Substance Use: substance use type: does not use Dietary Habits: caffeine: Yes Moni/Pentecostal: special moni needs: No Review Of Systems (GEN) - Review of Systems Generalized/Overall Review: Present: Weakness, Malaise. Absent: Chills, Fever, Diaphoresis EENTM: Present: No Symptoms Reported Respiratory: Present: Shortness of Breath. Absent: Cough, Orthopnea, Wheezing Cardiac: Present: No Symptoms Reported Abdominal: Present: No Symptoms Reported Genitourinary: Present: No Symptoms Reported Musculoskeletal: Present: Other - chronic bilateral leg pain. chronic low back pain which has worsened through the day. Neurological: Present: Anxiety, Depressed, Other - grieving Skin: Present: No Symptoms Reported Endocrine: Present: Intolerance to Cold, Intolerance to Heat Misc: All systems neg except as marked Immunizations: IMMUNIZATION HX Immunizations Up to Date Yes History of Influenza Vaccine No Hx Pneumococcal Vaccination Yes Allergies/Adverse Reactions: Allergies Allergy/AdvReac Type Severity Reaction Status Date / Time codeine [Codeine] AdvReac Mild Vomiting Verified 11/23/19 16:12 Home Medications: HOME MEDICATIONS albuterol sulfate 2.5 mg INHALATION Q4H PRN #25 vial.neb 02/25/19 [Last Taken 11/18/19] acetaminophen 500 mg tablet 1,000 mg PO Q6H #0.1 tab 04/15/19 [Last Taken 11/23/19] levothyroxine 125 mcg tablet 125 mcg PO DAILY #30 tab 05/13/19 [Last Taken 11/23/19] diclofenac sodium 1 % topical gel 2 g TP QID #300 g 07/22/19 [Last Taken 11/23/19] lorazepam 2 mg/mL oral concentrate 0.15 mg PO QID #30 ml 07/22/19 [Last Taken Unknown] Aspirin [Adult Aspirin Regimen] 81 mg PO DAILY 11/23/19 [Last Taken 11/23/19] Exam - Exam Vital Signs: Vital Signs - Last Taken Temp 36.7 C 11/23/19 16:17 Pulse 97 07/21/20 16:21 Resp 32 H 11/23/19 16:21 BP 134/76 11/23/19 16:21 Pulse Ox 94 11/23/19 16:21 Constitutional: Present: Alert, Oriented x3, Cooperative, Well developed, Other - tachypneic. it appears she has pain with breathing., Elderly, Looks Older than stated age ENT Exam: Present: normal ENT inspection, hearing grossly normal Eye Exam: bilateral eye: normal inspection, PERRL, EOMI Neck: Present: normal inspection. Absent: lymphadenopathy (R), lymphadenopathy (L), thyromegaly Back Exam: Present: vertebral tenderness - low back and paralumbar tenderness as well Respiratory: Present: lungs clear, decreased breath sounds, other - tachypnea Cardiovascular/Chest: Present: normal peripheral pulses, regular rate, rhythm, no edema, no gallop, no JVD, no murmur Peripheral Pulses: carotid (R): 1+, carotid (L): 1+, dorsalis-pedis (R): 1+, dorsalis-pedis (L): 1+ Abdomen: Present: Normal bowel sounds, soft, nontender, nondistended, no hepatospenomegaly, no masses /Rectal: Present: Exam deferred Extremity: Present: normal range of motion, non-tender, normal inspection, normal capillary refill Skin Exam: Present: normal color, warm/dry, no cyanosis Lymphatic: Present: no adenopathy Neurologic: Present: other - some memory problems and confusion, chronic Eye contact: Present: cooperative, good eye contact, normal speech Thoughts: Present: normal thought pattern Diagnostic Studies: Abnormal Lab Results 11/23/19 11/23/19 11/23/19 Range/Units 13:35 13:35 14:00 WBC 10.8 H (4.0-10.5) K/mm3 RBC 5.52 H (4.2-5.4) M/mm3 Hct 50.4 H (37.0-47.0) % MCHC 30.4 L (32-36) g/dl RDW 15.6 H (11.5-14.0) % Immature Gran % (Auto) 0.60 H (0.001-0.429) % Immature Gran # (Auto) 0.06 H (0.000-0.0310) K/mm3 Neutrophils % 77.2 H (42-75.0) % Lymphocytes % 10.6 L (20-51) % Monocytes % 9.3 H (0.0-9) % Neutrophils # 8.4 H (1.3-6.0) K/mm3 Lymphocytes # 1.15 L (1.5-3.5) k/mm3 pO2 65.6 L (83.0-108.0) mmHg HCO3 20.1 L (21.0-28.0) mmol/L Base Excess -3.5 L (-2.0-3.0) mmol/L ABG O2 Sat (Measured) 93.4 L (94.0-98.0) % Potassium 3.1 L (3.4-4.6) mmol/L Random Glucose 114 H (70-110) mg/dL ALT 8 L (19-67) U/L Albumin 2.9 L (3.4-5.0) gm/dl Urine Protein (NEGATIVE) mg/dL Urine Bilirubin (NEGATIVE) mg/dl Urine Ictotest (NEGATIVE) Urine Urobilinogen (NORMAL) EU/dl Ur Leukocyte Esterase (NEGATIVE) /ul Urine Bacteria (NONE) Urine Mucus (NONE) 11/23/19 Range/Units 14:31 WBC (4.0-10.5) K/mm3 RBC (4.2-5.4) M/mm3 Hct (37.0-47.0) % MCHC (32-36) g/dl RDW (11.5-14.0) % Immature Gran % (Auto) (0.001-0.429) % Immature Gran # (Auto) (0.000-0.0310) K/mm3 Neutrophils % (42-75.0) % Lymphocytes % (20-51) % Monocytes % (0.0-9) % Neutrophils # (1.3-6.0) K/mm3 Lymphocytes # (1.5-3.5) k/mm3 pO2 (83.0-108.0) mmHg HCO3 (21.0-28.0) mmol/L Base Excess (-2.0-3.0) mmol/L ABG O2 Sat (Measured) (94.0-98.0) % Potassium (3.4-4.6) mmol/L Random Glucose (70-110) mg/dL ALT (19-67) U/L Albumin (3.4-5.0) gm/dl Urine Protein 100 H (NEGATIVE) mg/dL Urine Bilirubin 3 H (NEGATIVE) mg/dl Urine Ictotest Positive H (NEGATIVE) Urine Urobilinogen 2.0 H (NORMAL) EU/dl Ur Leukocyte Esterase 25 H (NEGATIVE) /ul Urine Bacteria 4+ H (NONE) Urine Mucus Moderate - 2+ H (NONE) Laboratory Results WBC 10.8 K/mm3 (4.0-10.5) H 11/23/19 13:35 RBC 5.52 M/mm3 (4.2-5.4) H 11/23/19 13:35 Hgb 15.3 gm/dL (12.5-16.0) 11/23/19 13:35 Hct 50.4 % (37.0-47.0) H 11/23/19 13:35 MCV 91.3 fl (78-100) 11/23/19 13:35 MCH 27.7 pg (27-31) 11/23/19 13:35 MCHC 30.4 g/dl (32-36) L 11/23/19 13:35 RDW 15.6 % (11.5-14.0) H 11/23/19 13:35 Plt Count 326 K/mm3 (150-450) 11/23/19 13:35 MPV 10.8 fl (8-12.5) 11/23/19 13:35 Immature Gran % (Auto) 0.60 % (0.001-0.429) H 11/23/19 13:35 Immature Gran # (Auto) 0.06 K/mm3 (0.000-0.0310) H 11/23/19 13:35 Neutrophils % 77.2 % (42-75.0) H 11/23/19 13:35 Lymphocytes % 10.6 % (20-51) L 11/23/19 13:35 Monocytes % 9.3 % (0.0-9) H 11/23/19 13:35 Eosinophils % 1.3 % (0.0-3.0) 11/23/19 13:35 Basophils % 1.0 % (0.0-1.0) 11/23/19 13:35 Nucleated RBC % 0.0 k/mm3 (0-1) 11/23/19 13:35 Neutrophils # 8.4 K/mm3 (1.3-6.0) H 11/23/19 13:35 Lymphocytes # 1.15 k/mm3 (1.5-3.5) L 11/23/19 13:35 Monocytes # 1.0 k/mm3 (0.0-1.0) 11/23/19 13:35 Eosinophils # 0.1 k/mm3 (0.0-0.7) 11/23/19 13:35 Absolute Basophils 0.1 k/mm3 (0.0-0.1) 11/23/19 13:35 pCO2 32.4 mmHg (32.0-45.0) 11/23/19 14:00 pO2 65.6 mmHg (83.0-108.0) L 11/23/19 14:00 HCO3 20.1 mmol/L (21.0-28.0) L 11/23/19 14:00 Total CO2 21.1 mmol/L (19.0-24.0) 11/23/19 14:00 Base Excess -3.5 mmol/L (-2.0-3.0) L 11/23/19 14:00 ABG pH 7.41 (7.35-7.45) 11/23/19 14:00 ABG O2 Sat (Measured) 93.4 % (94.0-98.0) L 11/23/19 14:00 Sodium 138 mmol/L (132-142) 11/23/19 13:35 Plasma Sodium 138 mmol/L (130-142) 11/23/19 13:35 Potassium 3.1 mmol/L (3.4-4.6) L 11/23/19 13:35 Chloride 102 mmol/L (97-106) 11/23/19 13:35 Carbon Dioxide 28.1 mmol/L (24-32.6) 11/23/19 13:35 Anion Gap 11.0 mmol/L (6.8-13.8) 11/23/19 13:35 BUN 11 mg/dL (3-23) 11/23/19 13:35 Creatinine 0.81 mg/dL (0.4-1.4) 11/23/19 13:35 Est GFR (Non-Af Amer) 75 mL/min (60-130) D 11/23/19 13:35 BUN/Creatinine Ratio 13.6 (9.0-21.6) 11/23/19 13:35 Random Glucose 114 mg/dL (70-110) H 11/23/19 13:35 Calcium 9.3 mg/dL (7.9-10.9) 11/23/19 13:35 Calcium Adj for Albumin 9.9 mg/dL (8.4-10.2) 11/23/19 13:35 Total Bilirubin 0.9 mg/dL (0.0-1.1) 11/23/19 13:35 AST 22 U/L (0-48) 11/23/19 13:35 ALT 8 U/L (19-67) L 11/23/19 13:35 Alkaline Phosphatase 113 U/L (50-170) 11/23/19 13:35 Troponin I Less than 0.017 ng/mL (0.00-0.10) 11/23/19 13:35 Total Protein 6.2 gm/dL (6.2-8.2) 11/23/19 13:35 Albumin 2.9 gm/dl (3.4-5.0) L 11/23/19 13:35 Urine Color Yellow 11/23/19 14:31 Urine Appearance Cloudy (CLEAR) 11/23/19 14:31 Urine pH 6.0 pH (5.0-7.0) 11/23/19 14:31 Ur Specific [place] 1.025 SP.GR. (1.005-1.010) 11/23/19 14:31 Urine Protein 100 mg/dL (NEGATIVE) H 11/23/19 14:31 Urine Glucose (UA) Negative mg/dL (NEGATIVE) 11/23/19 14:31 Urine Ketones 15 mg/dL (NEGATIVE) 11/23/19 14:31 Urine Blood Negative /ul (NEGATIVE) 11/23/19 14:31 Urine Nitrate Negative (NEGATIVE) 11/23/19 14:31 Urine Bilirubin 3 mg/dl (NEGATIVE) H 11/23/19 14:31 Urine Ictotest Positive (NEGATIVE) H 11/23/19 14:31 Prot Sulfosalicylic Acd 1+ mg/dL (0) 11/23/19 14:31 Urine Urobilinogen 2.0 EU/dl (NORMAL) H 11/23/19 14:31 Ur Leukocyte Esterase 25 /ul (NEGATIVE) H 11/23/19 14:31 Urine RBC Trace /hpf (0-5) 11/23/19 14:31 Urine WBC 0-5 /hpf (0-5) 11/23/19 14:31 Ur Epithelial Cells 0-5 /hpf (0-5) 11/23/19 14:31 Calcium Oxalate Crystal Trace /hpf (NONE) 11/23/19 14:31 Urine Bacteria 4+ (NONE) H 11/23/19 14:31 Urine Mucus Moderate - 2+ (NONE) H 11/23/19 14:31 Urine Culture Comments Culture to follow 11/23/19 14:31 Assessment/Plan - Assessment/Plan (1) Dyspnea Assessment: significant back pain interfering with breathing. initial working assessment is dyspnea due to increasing pain today. Labs are ok except for low albumin and borderline low potassium. ABGs are fairly typical for her we will recheck labs tomorrow. Problem: Acute Qualifiers: Dyspnea type: dyspnea on exertion Qualified Code(s): R06.00 - Dyspnea, unspecified (2) Low back pain Assessment: chronic low back pain, though worsened throughout today. no injury. will check an xray to make sure she has no acute compression fracture. Problem: Chronic Qualifiers: Back pain laterality: midline Sciatica presence: without sciatica (3) Grief Assessment: this may be contributing to her increase in pain. I will start duloxetine which may also directly help her pain. Problem: Acute (4) Alzheimers disease Problem: Chronic Qualifiers: (5) COPD (chronic obstructive pulmonary disease) Assessment: this is unlikely to be an exacerbation, but it is nevertheless possible so we will treat with steroids and antibiotics Problem: Chronic Qualifiers: COPD type: emphysema Emphysema type: panlobular Qualified Code(s): J43.1 - Panlobular emphysema (6) Leg pain, bilateral Assessment: seems somewhat worse today. Problem: Chronic (7) Malnutrition Assessment: low albumin. will add snacks to diet Problem: Chronic Qualifiers: Malnutrition type: protein-calorie malnutrition Protein-calorie malnutrition severity: moderate Qualified Code(s): E44.0 - Moderate protein- calorie malnutrition (8) Anxiety Assessment: has worsened. may be due to pain and/or grief. may also be worsening both pain and grief. Problem: Chronic (9) Lung cyst Assessment: this appears to be chronic and stable. Problem: Chronic
[2019-11-23] MEDS: ACETAMINOPHEN 500 MG TABLET PO SCH (20:27)
[2019-11-23] MEDS: DULoxetine HCL 20 MG CAPSULE.SA PO SCH (20:28)
[2019-11-23] MEDS: DICLOFENAC SODIUM 100 APPL TUBE TP SCH (20:34)
[2019-11-23] MEDS ORDERED: LORAZEPAM 2 MG/ML ORAL.CONC PO SCH (21:00)
[2019-11-24] MEDS: METHYLPREDNISOLONE SOD SUCC/PF 40 MG/ML VIAL IV SCH (05:10)
[2019-11-24] MEDS: NORMAL SALINE 1,000 ML IV PRN (06:15)
[2019-11-24 06:42] LABS: Hematocrit 44.2 % (37.0-47.0); Hemoglobin 13.6 gm/dL (12.5-16.0); Mean Cell Volume 90.6 fl (78-100); Mean Corpuscular Hemoglobin 27.9 pg (27-31); Mean Corpuscular Hgb Conc 30.8 g/dl (32-36); Mean Platelet Volume 10.9 fl (8-12.5); Neutrophil # 4.2 K/mm3 (1.3-6.0); Neutrophil % 89.3 % (42-75.0); Platelet Count 256 K/mm3 (150-450); Red Blood Count 4.88 M/mm3 (4.2-5.4); Red Cell Distribution Width 15.3 % (11.5-14.0); White Blood Count 4.7 K/mm3 (4.0-10.5)
[2019-11-24 06:45] LABS: Anion Gap 7.6 mmol/L (6.8-13.8); BUN/Creatinine Ratio 15.2 (9.0-21.6); Calcium * 8.3 mg/dL (7.9-10.9); Carbon Dioxide 32.2 mmol/L (24-32.6); Estimated Creat Clear 44.2; Potassium 3.8 mmol/L (3.4-4.6)
[2019-11-24] MEDS ORDERED: LEVOTHYROXINE SODIUM 125 MCG TABLET PO SCH (07:00)
--- NOTE | 2019-11-24 07:21 | DS ---
(1) Dyspnea Diagnosis(s): back to her usual dyspnea. no cough. O2 sat when walking to the bathroom last night 86% on room air. resolved with rest. needs home O2. Problem: Resolved Qualifiers: Dyspnea type: dyspnea on exertion Qualified Code(s): R06.00 - Dyspnea, u nspecified (2) Low back pain Diagnosis(s): improved. didn't bother her much through the night or this morning. xray showed no lumbar fracture. Problem: Resolved Qualifiers: Back pain laterality: midline Sciatica presence: without sciatica (3) Grief Problem: Acute (4) Alzheimers disease Problem: Chronic Qualifiers: Alzheimer's disease onset: late-onset Dementia behavioral disturbance: without behavioral disturbance Qualified Code(s): G30.1 - Alzheimer's disease with late onset; F02.80 - Dementia in other diseases classified elsewhere without behavioral disturbance (5) COPD (chronic obstructive pulmonary disease) Problem: Chronic Qualifiers: COPD type: emphysema Emphysema type: panlobular Qualified Code(s): J43.1 - Panlobular emphysema (6) Leg pain, bilateral Diagnosis(s): improved Problem: Chronic (7) Malnutrition Diagnosis(s): lost 33 pounds in 3 months by her report. almost certainly related to poor oral intake. lives by herself. will use duloxetine am's and mirtazapine at bedtime. also nutritional supplements and home health referral. she lives by herself. Problem: Chronic Qualifiers: Malnutrition type: protein-calorie malnutrition Protein-calorie malnutrition severity: moderate Qualified Code(s): E44.0 - Moderate protein- calorie malnutrition (8) Anxiety Problem: Chronic (9) Lung cyst Problem: Chronic (10) Urinary incontinence Problem: Chronic Qualifiers: Urinary Incontinence type: unspecified incontinence Qualified Code(s): R32 - Unspecified urinary incontinence Date of Discharge:: 11/24/19 Hospital Course: started with steroids and iv antibiotics. back and leg pain improved without treatment except for ice. weight loss over three months probably related to emphysema plus poor oral intake. O2 sat dropped to 86% on walking to the bathroom, but was in the 90s when resting. Needs home O2. Needs home health, because she is not doing well living on her own. face to face visit this morning for home health referral. needs home health nurse to monitor her condition and assist with care, as she lives by herself and is not doing well with her COPD, pain, anxiety, depression and weight loss. she needs at the very least daily vitals, clinical evaluation and diet monitoring. left to her own devices, the patient will not do well. Procedures Performed: none Results and Findings: Lab Pending Results 11/23/19 13:35: WBC 10.8 H, RBC 5.52 H, Hgb 15.3, Hct 50.4 H, MCV 91.3, MCH 27.7, MCHC 30.4 L, RDW 15.6 H, Plt Count 326, MPV 10.8, Immature Gran % (Auto) 0.60 H, Immature Gran # (Auto) 0.06 H, Neutrophils % 77.2 H, Lymphocytes % 10.6 L, Monocytes % 9.3 H, Eosinophils % 1.3, Basophils % 1.0, Nucleated RBC % 0.0, Neutrophils # 8.4 H, Lymphocytes # 1.15 L, Monocytes # 1.0, Eosinophils # 0.1, Absolute Basophils 0.1 11/23/19 13:35: Sodium 138, Plasma Sodium 138, Potassium 3.1 L, Chloride 102, Carbon Dioxide 28.1, Anion Gap 11.0, BUN 11, Creatinine 0.81, Est GFR (Non-Af Amer) 75 D, BUN/Creatinine Ratio 13.6, Random Glucose 114 H, Calcium 9.3, Calcium Adj for Albumin 9.9, Total Bilirubin 0.9, AST 22, ALT 8 L, Alkaline Phosphatase 113, Troponin I Less than 0.017, Total Protein 6.2, Albumin 2.9 L 11/23/19 14:00: pCO2 32.4, pO2 65.6 L, HCO3 20.1 L, Total CO2 21.1, Base Excess -3.5 L, ABG pH 7.41, ABG O2 Sat (Measured) 93.4 L 11/23/19 14:31: Urine Color Yellow, Urine Appearance Cloudy, Urine pH 6.0, Ur Specific [place] 1.025, Urine Protein 100 H, Urine Glucose (UA) Negative, Urine Ketones 15, Urine Blood Negative, Urine Nitrate Negative, Urine Bilirubin 3 H, Urine Ictotest Positive H, Prot Sulfosalicylic Acd 1+, Urine Urobilinogen 2.0 H, Ur Leukocyte Esterase 25 H, Urine RBC Trace, Urine WBC 0-5, Ur Epithelial Cells 0-5, Calcium Oxalate Crystal Trace, Urine Bacteria 4+ H, Urine Mucus Moderate - 2+ H, Urine Culture Comments Culture to follow 11/24/19 06:32: WBC 4.7 D, RBC 4.88, Hgb 13.6, Hct 44.2, MCV 90.6, MCH 27.9, MCHC 30.8 L, RDW 15.3 H, Plt Count 256, MPV 10.9, Immature Gran % (Auto) 0.40, Immature Gran # (Auto) 0.02, Neutrophils % 89.3 H, Lymphocytes % 6.1 L, Monocytes % 4.0, Eosinophils % 0.0, Basophils % 0.2, Nucleated RBC % 0.0, Neutrophils # 4.2, Lymphocytes # 0.29 L, Monocytes # 0.2, Eosinophils # 0.0, Absolute Basophils 0.0 Discharge Location: Home Disposition: Home Health Service Home Health Agency: Other - hasn't picked an agency yet. Condition: Fair Face to Face Encounter completed per CMS Guidelines: Yes Discharge Activity: Activity as tolerated Discharge Diet: General/regular food - 3 snacks daily Referrals: Domo Graves MD [Primary Care Provider] - Additional Patient Instructions (free text): please call if there are problems or questions. see me in the office within 7 days. needs continuous n.c. home O2 at 2 L/m. Complete Home Medications List: Complete Home Medication List: albuterol sulfate 2.5 mg INHALATION Q4H PRN #25 vial.neb 02/25/19 levothyroxine 125 mcg tablet 125 mcg PO DAILY #30 tab 05/13/19 diclofenac sodium 1 % topical gel 2 g TP QID #300 g 07/22/19 lorazepam 2 mg/mL oral concentrate 0.15 mg PO QID #30 ml 07/22/19 Aspirin [Adult Aspirin Regimen] 81 mg PO DAILY 11/23/19 Acetaminophen [Tylenol] 500 mg PO QID tablet 11/24/19 Cefdinir [Omnicef] 300 mg PO BID #10 cap 11/24/19 DULoxetine HCL [Cymbalta] 20 mg PO DAILY #30 capsule.sa 11/24/19 Lactose-Reduced Food [Ensure Liquid] 237 ml PO TID #90 liquid 11/24/19 Mirtazapine 7.5 mg PO HS #30 tab 11/24/19 predniSONE [Prednisone] 20 mg PO BID #20 tab.ds.pk 11/24/19
[2019-11-24] MEDS: DULoxetine HCL 20 MG CAPSULE.SA PO SCH ×2 (08:57→12:00)
[2019-11-24] MEDS: DICLOFENAC SODIUM 100 APPL TUBE TP SCH ×2 (08:57→12:00)
[2019-11-24] MEDS: ACETAMINOPHEN 500 MG TABLET PO SCH ×2 (08:57→11:59)
[2019-11-24] MEDS ORDERED: LORazepam 0.5 MG TABLET PO ONE (09:00)
[2019-11-24 13:18] VITALS: BP 141/79
== END 2019-11-24 13:20 | disposition home or self-care (01) ==
LOC: MS 13:02 → ER 13:02 → MS 15:56
PROVIDERS: ADMIT Allergy & Immunology; ATTEND Allergy & Immunology
DX: J43.1 Panlobular emphysema; M54.5 Low back pain; F41.8 Other specified anxiety disorders; F43.20 Adjustment disorder, unspecified; F02.80 Dementia in other diseases classified elsewhere, unspecified severity, without behavioral disturbance, psychotic disturbance, mood disturbance, and anxiety; J98.4 Other disorders of lung; E44.0 Moderate protein-calorie malnutrition; Z87.891 Personal history of nicotine dependence; R32 Unspecified urinary incontinence; G30.9 Alzheimer's disease, unspecified
CPT/HCPCS: 36415; 36600; 71020; 71046; 72110; 80048; 80053; 81001; 82803; 84484; 85025; 87040; 87086; 93005; 94640; 94664; 96365; 96366; 96372; 96375; 96376; 99282; 99285; G0378; J2405

== ENCOUNTER 2019-12-29 12:17 | Observation (INO) ==
[2019-12-29] MEDS ORDERED: MORPHINE SULFATE 2 MG/ML DISP.SYRIN IV ONE (13:03)
[2019-12-29] MEDS ORDERED: METOCLOPRAMIDE HCL 5 MG/ML VIAL IV ONE (13:03)
[2019-12-29] MEDS ORDERED: NORMAL SALINE 1,000 ML IV ONE (13:03)
[2019-12-29 13:48] LABS: Hematocrit 43.4 % (37.0-47.0); Mean Cell Volume 88.2 fl (78-100); Mean Corpuscular Hemoglobin 28.5 pg (27-31); Mean Corpuscular Hgb Conc 32.3 g/dl (32-36); Mean Platelet Volume 10.6 fl (8-12.5); Neutrophil # 9.7 K/mm3 (1.3-6.0); Neutrophil % 85.1 % (42-75.0); Platelet Count 404 K/mm3 (150-450); Red Blood Count 4.92 M/mm3 (4.2-5.4); Red Cell Distribution Width 20.3 % (11.5-14.0); White Blood Count 11.3 K/mm3 (4.0-10.5)
--- NOTE | 2019-12-29 14:01 | ERNOTE ---
Medical Problem HPI - Narrative Date of Service: 12/29/19 - General Chief Complaint: General Assessment Time Seen by Provider: 12/29/19 12:35 Source: patient, family, RN notes reviewed, old records Exam Limitations: no limitations - Immun/Allergies/Home Medications Immunizations: IMMUNIZATION HX Immunizations Up to Date No History of Influenza Vaccine No Hx Pneumococcal Vaccination No Allergies/Adverse Reactions: Allergies codeine [Codeine] Adverse Reaction (Mild, Verified 12/29/19 12:28) Vomiting Home Medications: HOME MEDICATIONS levothyroxine 125 mcg tablet 125 mcg PO DAILY #30 tab 05/13/19 [Last Taken 11/23/19] Potassium Chloride [K-Dur] 20 meq PO TID #90 tablet.sa 12/01/19 [Last Taken Unknown] diclofenac sodium 1 % topical gel 2 g TP QID #300 g 12/08/19 [Last Taken U nknown] duloxetine 20 mg capsule,delayed release 20 mg PO DAILY #30 capsule.sa 12/08/19 [Last Taken Unknown] food supplemt, lactose-reduced See Rx Instructions PO TID #2832 ml 12/08/19 [Last Taken Unknown] mirtazapine 7.5 mg tablet 7.5 mg PO HS #30 tab 12/08/19 [Last Taken Unknown] acetaminophen 500 mg tablet 500 mg PO TID PRN #0.1 tab 12/15/19 [Last Taken Unknown] - History of Present History Narrative: Lynn is a 69-year-old female brought to the emergency department by her daughter for generalized pain and vomiting. She reports that she began having vomiting and diarrhea approximately 3 days ago. She was hospitalized a month ago with similar symptoms. She was found to have a pancreatic mass on MRI. She also underwent a paracentesis at that time during which almost 2 L of fluid was removed. She had another paracentesis earlier this morning with removal of 2300 mL of fluid. She has been evaluated by oncology and is being scheduled to have a pancreatic biopsy at the [facility]. She has not been taking anything for pain. When she saw her primary care provider on December 14 for follow-up, she did not wish to take anything stronger than Tylenol at that point. She has also been taking Zofran ODT for vomiting without improvement. She is reported to have vomited several times while in radiology this morning. She also reports coughing more than usual. She has a history of COPD. Review of Systems - Review of Systems Constitutional: Present: recent illness, fatigue, malaise. Absent: fever, chills EYE: Present: no symptoms reported ENT: Absent: nose congestion, sore throat Respiratory: Present: shortness of breath, cough. Absent: orthopnea Cardiology: Present: edema. Absent: chest pain, syncope Gastrointestinal/Abdominal: Present: nausea, vomiting, diarrhea, abdominal pain, eating less, drinking less Genitourinary: Absent: frequency, dysuria Musculoskeletal: Present: muscle pain Skin: Absent: rash, lesions Neurological: Present: dizziness/light-headedness. Absent: headache Endocrine: Present: no symptoms reported Hematologic/Lymphatic: Present: easy bruising, easy bleeding Psych: Present: no symptoms reported Medical History (Last Reviewed 12/29/19 @ 16:13 by Emely Barr NP) COPD (chronic obstructive pulmonary disease) (Chronic) Osteoarthritis (Chronic) Lung abscess (Resolved) Crohns disease (Chronic) Onset Date: Unknown History of insomnia (Chronic) Onset Date: 11/07/15 History of pneumonia (Resolved) Onset Date: 06/24/12 Anxiety Pancreatic cancer Alzheimers disease Hypothyroidism History of cerebrovascular accident in adulthood Onset Date: ~1999 Surgical History: Surgical History (Last Reviewed 12/29/19 @ 16:13 by Emely Barr NP) History of cholecystectomy (Resolved) Onset Date: ~1969 open History of thyroid surgery (Resolved) Onset Date: ~1969 History of ovarian cystectomy (Resolved) Onset Date: ~1969 2 cyst removed History of cataract surgery (Resolved) Onset Date: Unknown History of appendectomy (Resolved) Onset Date: ~1969 History of bronchoscopy (Resolved) Onset Date: 03/13/15 06/21/11 Dr Becerril. 03/13/15 Catrachito-benign cellular elements. No pathogens History of colonoscopy (Resolved) Onset Date: 02/12/11 02/12/11 Jesseeguradha -tubular adenoma History of hysterectomy (Resolved) Onset Date: ~1979 complete History of salpingo-oophorectomy (Resolved) Onset Date: 02/14/99 Dr Dolan-bilateral History of tonsillectomy (Resolved) Onset Date: Unknown History of breast surgery Onset Date: ~1969 right-cyst removed History of chest tube placement Onset Date: ~1998 Had "bags of fluid removed from on top of lungs 2 times" History of nasal surgery Onset Date: ~1969 1070's-lump on top of nose Family History: Family History (Last Reviewed 12/29/19 @ 16:13 by Emely Barr NP) Father , age 60's Myocardial infarction Mother , age 62 Myocardial infarction Heart disease Diabetes Brother , age 7-drowned No problems noted. Sister , age 70's-lung disease No problems noted. Sister Heart disease Diabetes Social History: (Last Reviewed 12/29/19 @ 16:13 by Emely Barr NP) Social History: Marital status: number of children: 2 current occupational status: disabled Highest education level completed: 11th grade Service: No Tobacco: Smoking Status: Former smoker Alcohol: alcohol intake: former Substance Use: substance use type: does not use Dietary Habits: caffeine: Yes Moni/Hoahaoism: special moni needs: No Physical Exam - Physical Exam General Appearance: Present: alert, mild distress, thin, other - Generally ill- appearing Head Exam: Present: normal inspection Eye Exam: Scleral icterus: bilateral - Mild Ears, Nose, Throat: Present: normal ENT inspection, normal pharynx. Absent: dry mucous membranes Neck: Present: normal inspection, nontender, supple Respiratory: Present: no respiratory distress, no accessory muscle use, crackles - Bibasilar. Absent: expiration (prolonged) Cardiovascular/Chest: Present: regular rate, rhythm, normal peripheral pulses, systolic murmur Gastrointestinal/Abdominal: Present: soft, tenderness - Mild, diffuse, abnormal bowel sounds - Hyperactive Extremity Exam: Present: non-tender, normal range of motion, pedal edema - Mild, bilateral Neurological Exam: Present: alert, oriented, normal mood/affect, no motor/sensory deficits Skin Exam: Present: warm/dry, jaundice Progress - Results and Orders Patient's Lab Results:: I have reviewed the patient's lab results. - Vital Signs Patient's Vital Signs:: I have reviewed the patient's vital signs. Vital Signs: Vital Signs 12/29/19 12:17 12/29/19 13:39 12/29/19 13:52 Temperature 36.0 C Pulse Rate 98 101 H 104 H Respiratory Rate 20 30 H 38 H Blood Pressure 122/73 90/44 108/61 O2 Sat by Pulse Oximetry 100 97 97 - X-Ray X-Ray #1 X-Ray: chest Interpretation: Reviewed by me X-ray Comments: Technique: Single AP view of the chest obtained. Comparison: 11/29/2019. Findings: There is a hiatal hernia. Heart size and vascularity appear within normal limits. There is scarring in the right lung base. There are no focal infiltrates or effusions on this single view. There is hyperinflation the lung viveros compatible with underlying COPD emphysema. There are atherosclerotic calcifications. IMPRESSION: CHRONIC FINDINGS DISCUSSED. NO ACUTE CARDIOPULMONARY DISEASE IDENTIFIED. Electronically signed by Marcos Ocampo M.D.. - CT/Ultrasound CT/Ultrasound Narrative: US RUQ: TECHNIQUE: Multiple sonographic images of the biliary system performed. FINDINGS: Exam shows mild intrahepatic and extrahepatic biliary dilatation. Distal common bile duct measures 8 mm. Abdomen MRI dated 11/30/2019 showed an obstructing pancreatic head mass. IMPRESSION: BILIARY DILATATION COMPATIBLE WITH OBSTRUCTION. Electronically signed by Marcos Ocampo M.D.. - Progress/Reassessment Chief Complaint: General Assessment Progress:: Unchanged Plan - Plan Plan: Admission was initially discussed with Dr. Campbell. An ultrasound was obtained for further evaluation of the patient's common bile duct. This showed obstruction of the duct by the patient's pancreatic mass. Dr. Campbell had voiced that the patient would need to be transferred to a facility where surgical intervention for this would be available. At 1629 I contacted the [facility] and spoke to Dr. Hall in the emergency department. The [facility] does not have inpatient bed availability but he stated they would be able to house the patient in their emergency department, however he did not feel that any intervention would be done on an emergent basis for the patient's condition. He recommended admitting the patient here to control her symptoms. I then contacted Dr. Campbell again but he was leaving for the day and I spoke with Dr. Oliveros. He agreed to admit the patient to observation status. I also notified the [facility] emergency department that the patient would not be coming to their facility. The patient was tested for COVID-19 while in the ED and this was negative. Departure Clinical Impression: Pancreatic mass, Common bile duct obstruction Vomiting Qualifiers: Vomiting type: unspecified Vomiting Intractability: unspecified Nausea presence: with nausea Qualified Code(s): R11.2 - Nausea with vomiting, unspecified - Departure Disposition: Still a patient Condition: Stable Referrals: Domo Graves MD [Primary Care Provider] -
[2019-12-29 14:16] LABS: Albumin * 2.2 gm/dl (3.4-5.0); BUN/Creatinine Ratio 14.2 (9.0-21.6); Bilirubin, Total 3.4 mg/dL (0.0-1.1); Ca. Corrected For Albumin 9.5 mg/dL (8.4-10.2); Calcium * 8.4 mg/dL (7.9-10.9); Carbon Dioxide 32.1 mmol/L (24-32.6); Potassium 3.1 mmol/L (3.4-4.6); Total Protein 5.4 gm/dL (6.2-8.2)
[2019-12-29] MEDS ORDERED: LIDOCAINE HCL 50 ML VIAL ONE (15:14)
[2019-12-29 15:26] LABS: Amylase * 29 U/L (25-115); Lipase 118 U/L (73-393)
--- NOTE | 2019-12-29 16:08 | ANES ---
Anesthesia Procedure Note Procedure Note: ANESTHESIA PROCEDURE NOTE Date of Procedure: 12/29/2019 Time of procedure: 1520. Performed by: SHAKA Quiroga CRNA, MSN Preprocedure diagnosis: Nausea vomiting and weakness, shortness of breath, lack of IV access. Post procedure diagnosis: Same. Procedure: Venipuncture for IV access. Indications: Lack of IV access after multiple attempts by emergency department staff. Findings: See below. Details of the procedure: The patient was prepped with Betadine and alcohol, 0.1 mL of 1% lidocaine solution was injected at the intended IV site. I first saw shadow of an external jugular vein on the left side but due to her cachectic condition her anatomy made it virtually impossible to approach. I did attempt to bend a number 20-gauge Angiocath but I could not achieve an angle adequate to approach the vein. An attempt was made in the right foot with a 24-gauge catheter. I did achieve blood return at this site but not enough to give me confidence that it was in place. On removing the catheter clear liquid returned as her feet were quite edematous. Finally, I prepped the left shoulder left shoulder and was able to cannulate a 14-gauge IV on a short straight run of superficial vein. The vein does appear quite fragile however, considering her history, it was the most likely adequate site short of a central line. EBL: Minimal. Fluids: N/A. Specimen: N/A. Post procedure condition: The patient tolerated the procedure well. No complications were noted. Thank you for this consultation. Deni Kim CRNA, ARNP, MSN
[2019-12-29] MEDS: ENOXAPARIN SODIUM 40 MG/0.4 ML SYRG SC SCH (18:59)
[2019-12-29] MEDS: [UNRECOGNIZED DRUG - OTHER] PO SCH (18:59)
[2019-12-29] MEDS: DICLOFENAC SODIUM 100 APPL TUBE TP SCH (20:09)
[2019-12-29 20:38] LABS: Urine Bilirubin 3 mg/dl (NEGATIVE); Urine Blood Negative /ul (NEGATIVE); Urine Ketone Negative (NEGATIVE); Urine Protein 15 mg/dL (NEGATIVE); Urine Specific Gravity 1.025 SP.GR. (1.005-1.010); Urine Urobilinogen >=8.0 EU/dl (NORMAL); Urine pH 5.5 pH (5.0-7.0)
[2019-12-29 20:57] LABS: Urine Appearance Cloudy (CLEAR); Urine Bacteria 3+; Urine Color Brown; Urine Nitrite Positive (NEGATIVE); Urine RBC None Seen /hpf (0-5)
[2019-12-29] MEDS ORDERED: MIRTAZAPINE 15 MG TABLET PO SCH (21:00)
[2019-12-30] MEDS: ACETAMINOPHEN 500 MG TABLET PO PRN ×2 (00:27→09:24)
[2019-12-30 06:42] LABS: Hematocrit 38.2 % (37.0-47.0); Hemoglobin 12.2 gm/dL (12.5-16.0); Mean Cell Volume 87.4 fl (78-100); Mean Corpuscular Hemoglobin 27.9 pg (27-31); Mean Corpuscular Hgb Conc 31.9 g/dl (32-36); Mean Platelet Volume 10.5 fl (8-12.5); Neutrophil # 5.7 K/mm3 (1.3-6.0); Neutrophil % 73.2 % (42-75.0); Platelet Count 323 K/mm3 (150-450); Red Blood Count 4.37 M/mm3 (4.2-5.4); White Blood Count 7.8 K/mm3 (4.0-10.5)
[2019-12-30 07:05] LABS: Albumin * 1.8 gm/dl (3.4-5.0); Anion Gap 10.8 mmol/L (6.8-13.8); BUN/Creatinine Ratio 17.2 (9.0-21.6); Bilirubin, Total 3.6 mg/dL (0.0-1.1); Calcium * 7.6 mg/dL (7.9-10.9); Carbon Dioxide 30.4 mmol/L (24-32.6); Potassium 3.2 mmol/L (3.4-4.6); Total Protein 4.6 gm/dL (6.2-8.2)
[2019-12-30] MEDS: LEVOTHYROXINE SODIUM 125 MCG TABLET PO SCH (07:07)
[2019-12-30] MEDS: DICLOFENAC SODIUM 100 APPL TUBE TP SCH ×4 (08:18→20:46)
[2019-12-30] MEDS: [UNRECOGNIZED DRUG - OTHER] PO SCH ×3 (08:19→16:39)
[2019-12-30] MEDS: POTASSIUM CHLORIDE 20 MEQ TABLET.SA PO SCH ×3 (08:19→16:39)
[2019-12-30] MEDS ORDERED: DULoxetine HCL 20 MG CAPSULE.SA PO SCH (09:00)
--- NOTE | 2019-12-30 10:28 | HP ---
Chief Complaint - Chief Complaint Date of Service: 12/29/19 Time of Service: 19:00 Chief Complaint: Weakness, nausea with vomiting, ascites History of Present Illness: Lynn Romano is a 69-year-old female patient of Dr. Domo Sandy MD, who presented to the emergency room in a week and condition not able to keep food or fluids down. She has a known pancreatic tumor that is obstructing the common bile duct. She is scheduled to have an ultrasound-guided biopsy of the tumor at the [facility]. All of her liver enzymes are elevated and the alkaline phosphatase is greatly elevated at 1254 this morning. The amylase and lipase are normal. She had a paracentesis done yesterday morning in which they removed 2300 cc of abdominal ascites. I presume it was sent for cytology. She is emaciated and has quite a lot of upper abdominal discomfort. She is tender to palpation across the upper abdomen particularly the left and right upper quadrants. Dr. Campbell has had 3 conversations with her about hospice. Apparently her of pancreatic cancer earlier this year. The patient and her daughter have not decided to go on hospice just yet. Laboratory work today shows a normal white count of 7800 which is down from 11,300 yesterday. Hemoglobin is 12.2 g hematocrit 38.2% and platelets are normal. Her electrolytes are normal except potassium is low at 3.2 but is up from 3.1 yesterday. The EGFR has improved to 64 with rehydration and is up from 44 on admission. Glucose is 84 and down from 113 on admission. Calcium is low at 7.6 and is down from 8.4. This is a reflection of the decrease in albumin which is dropped to 1.8 from 2.2 yesterday. The total protein has dropped to 4.6 from 5.4 yesterday. Total bilirubin is 3.6 and up from 3.4 the AST is 116 and is up from 91 and ALT is 76 and down slightly from 86 alkaline phosphatase is 1254 but is slightly down from yesterday when it was 1301. The BNP is 441. Amylase and lipase are normal at 29 and 18 and the lipase is 75 today. Urinaly sis shows probable urinary tract infection with positive nitrites, leukocyte Estrace positive at 25, 3+ bacteria. There is only 5-10 white cells per hpf. The urobilinogen is greater than 8.0 and the Vanessa test is positive. Her SARS COVID 2 is not detected. Medical History (Last Reviewed 12/29/19 @ 16:13 by Emely Barr NP) COPD (chronic obstructive pulmonary disease) (Chronic) Osteoarthritis (Chronic) Lung abscess (Resolved) Crohns disease (Chronic) Onset Date: Unknown History of insomnia (Chronic) Onset Date: 11/07/15 History of pneumonia (Resolved) Onset Date: 06/24/12 Anxiety Pancreatic cancer Alzheimers disease Hypothyroidism History of cerebrovascular accident in adulthood Onset Date: ~1999 Surgical History: Surgical History (Last Reviewed 12/29/19 @ 16:13 by Emely Barr NP) History of cholecystectomy (Resolved) Onset Date: ~1969 open History of thyroid surgery (Resolved) Onset Date: ~1969 History of ovarian cystectomy (Resolved) Onset Date: ~1969 2 cyst removed History of cataract surgery (Resolved) Onset Date: Unknown History of appendectomy (Resolved) Onset Date: ~1969 History of bronchoscopy (Resolved) Onset Date: 03/13/15 06/21/11 Dr Becerril. 03/13/15 Jessian-benign cellular elements. No pathogens History of colonoscopy (Resolved) Onset Date: 02/12/11 02/12/11 Lissett -tubular adenoma History of hysterectomy (Resolved) Onset Date: ~1979 complete History of salpingo-oophorectomy (Resolved) Onset Date: 02/14/99 Dr Dolan-bilateral History of tonsillectomy (Resolved) Onset Date: Unknown History of breast surgery Onset Date: ~1969 right-cyst removed History of chest tube placement Onset Date: ~1998 Had "bags of fluid removed from on top of lungs 2 times" History of nasal surgery Onset Date: ~1969 1070's-lump on top of nose Family History: Family History (Last Reviewed 12/29/19 @ 16:13 by Emely Barr NP) Father , age 60's Myocardial infarction Mother , age 62 Myocardial infarction Heart disease Diabetes Brother , age 7-drowned No problems noted. Sister , age 70's-lung disease No problems noted. Sister Heart disease Diabetes Social History: (Last Reviewed 12/29/19 @ 16:13 by Emely Barr NP) Social History: Marital status: number of children: 2 current occupational status: disabled Highest education level completed: 11th grade Service: No Tobacco: Smoking Status: Former smoker Alcohol: alcohol intake: former Substance Use: substance use type: does not use Dietary Habits: caffeine: Yes Moni/Buddhist: special moni needs: No Review Of Systems (GEN) - Review of Systems Generalized/Overall Review: Present: Weakness, Malaise, Weight loss EENTM: Present: No Symptoms Reported Respiratory: Present: No Symptoms Reported Cardiac: Present: No Symptoms Reported Abdominal: Present: Nausea, Vomiting, Abdominal Pain, Other - Ascites Genitourinary: Present: No Symptoms Reported Musculoskeletal: Present: Other - Generalized weakness Neurological: Present: Weakness Skin: Present: No Symptoms Reported Endocrine: Present: No Symptoms Reported Immunizations: IMMUNIZATION HX Immunizations Up to Date No History of Influenza Vaccine No Hx Pneumococcal Vaccination No Allergies/Adverse Reactions: Allergies Allergy/AdvReac Type Severity Reaction Status Date / Time codeine [Codeine] AdvReac Mild Vomiting Verified 12/29/19 12:28 Home Medications: HOME MEDICATIONS levothyroxine 125 mcg tablet 125 mcg PO DAILY #30 tab 05/13/19 [Last Taken 11/23/19] Potassium Chloride [K-Dur] 20 meq PO TID #90 tablet.sa 12/01/19 [Last Taken Unknown] diclofenac sodium 1 % topical gel 2 g TP QID #300 g 12/08/19 [Last Taken Unknown] food supplemt, lactose-reduced See Rx Instructions PO TID #2832 ml 12/08/19 [Last Taken Unknown] acetaminophen 500 mg tablet 500 mg PO TID PRN #0.1 tab 12/15/19 [Last Taken Unknown] Exam - Exam Vital Signs: Vital Signs - Last Taken Temp 36.4 C 12/30/19 06:50 Pulse 89 12/30/19 06:50 Resp 14 12/30/19 06:50 BP 106/58 12/30/19 06:50 Pulse Ox 98 12/30/19 06:50 Constitutional: Present: Alert, Oriented x3, Cooperative, Thin and frail, Looks Older than stated age ENT Exam: Present: normal ENT inspection, hearing grossly normal, pharynx normal Eye Exam: bilateral eye: normal inspection, PERRL, EOMI Neck: Present: non-tender, full range of motion, supple, normal inspection Back Exam: Present: normal inspection, no CVA tenderness, no vertebral tenderness Breasts: Present: Exam deferred Respiratory: Present: chest non-tender, rhonchi Cardiovascular/Chest: Present: normal peripheral pulses, regular rate, rhythm, no chest tenderness, edema - Anasarca secondary to hypoproteinemia Peripheral Pulses: carotid (R): 2+, carotid (L): 2+, radial (R): 2+, radial (L): 2+ Abdomen: Present: Normal bowel sounds, soft, nondistended - But had 2300 cc of ascites removed yesterday morning., tender - Across the upper abdomen. Most tender in the medial liver area. 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, no motor/sensory deficits, alert, abnormal gait Appearance: Present: appropriate insight, no memory impairment, disheveled Eye contact: Present: cooperative, good eye contact, normal speech Thoughts: Present: normal thought pattern, no apparent hallucination Diagnostic Studies: Abnormal Lab Results 12/29/19 12/29/19 12/29/19 Range/Units 13:02 13:02 13:02 WBC 11.3 H (4.0-10.5) K/mm3 Hgb (12.5-16.0) gm/dL MCHC (32-36) g/dl RDW 20.3 H (11.5-14.0) % Immature Gran % (Auto) (0.001-0.429) % Immature Gran # (Auto) (0.000-0.0310) K/mm3 Neutrophils % 85.1 H (42-75.0) % Lymphocytes % 5.4 L (20-51) % Monocytes % (0.0-9) % Neutrophils # 9.7 H (1.3-6.0) K/mm3 Lymphocytes # 0.61 L (1.5-3.5) k/mm3 Potassium 3.1 L (3.4-4.6) mmol/L Est GFR (Non-Af Amer) 44 L D (60-130) mL/min Random Glucose 113 H (70-110) mg/dL Lactic Acid, Venous 2.1 H (0.4-2.0) mmol/L Calcium (7.9-10.9) mg/dL Total Bilirubin 3.4 H (0.0-1.1) mg/dL AST 91 H (0-48) U/L ALT 86 H (19-67) U/L Alkaline Phosphatase 1301 H (50-170) U/L B-Natriuretic Peptide 441 H (5-325) pg/mL Total Protein 5.4 L (6.2-8.2) gm/dL Albumin 2.2 L (3.4-5.0) gm/dl Urine Protein (NEGATIVE) mg/dL Urine Nitrate (NEGATIVE) Urine Bilirubin (NEGATIVE) mg/dl Urine Ictotest (NEGATIVE) Urine Urobilinogen (NORMAL) EU/dl Ur Leukocyte Esterase (NEGATIVE) /ul Urine WBC (0-5) /hpf Ur Epithelial Cells (0-5) /hpf Urine Bacteria (NONE) 12/29/19 12/30/19 12/30/19 Range/Units 19:55 06:10 06:10 WBC (4.0-10.5) K/mm3 Hgb 12.2 L (12.5-16.0) gm/dL MCHC 31.9 L (32-36) g/dl RDW 20.0 H (11.5-14.0) % Immature Gran % (Auto) 0.50 H (0.001-0.429) % Immature Gran # (Auto) 0.04 H (0.000-0.0310) K/mm3 Neutrophils % (42-75.0) % Lymphocytes % 10.3 L (20-51) % Monocytes % 13.1 H (0.0-9) % Neutrophils # (1.3-6.0) K/mm3 Lymphocytes # 0.81 L (1.5-3.5) k/mm3 Potassium 3.2 L (3.4-4.6) mmol/L Est GFR (Non-Af Amer) (60-130) mL/min Random Glucose (70-110) mg/dL Lactic Acid, Venous (0.4-2.0) mmol/L Calcium 7.6 L (7.9-10.9) mg/dL Total Bilirubin 3.6 H (0.0-1.1) mg/dL AST 116 H (0-48) U/L ALT 76 H (19-67) U/L Alkaline Phosphatase 1254 H (50-170) U/L B-Natriuretic Peptide (5-325) pg/mL Total Protein 4.6 L (6.2-8.2) gm/dL Albumin 1.8 L (3.4-5.0) gm/dl Urine Protein 15 H (NEGATIVE) mg/dL Urine Nitrate Positive H (NEGATIVE) Urine Bilirubin 3 H (NEGATIVE) mg/dl Urine Ictotest Positive H (NEGATIVE) Urine Urobilinogen >=8.0 H (NORMAL) EU/dl Ur Leukocyte Esterase 25 H (NEGATIVE) /ul Urine WBC 5-10 H (0-5) /hpf Ur Epithelial Cells 5-10 H (0-5) /hpf Urine Bacteria 3+ H (NONE) Microbiology 12/29/19 19:55 Urine Culture - Preliminary Urine,Clean Catch Ruling Out Pathogen Laboratory Results WBC 7.8 K/mm3 (4.0-10.5) D 12/30/19 06:10 RBC 4.37 M/mm3 (4.2-5.4) 12/30/19 06:10 Hgb 12.2 gm/dL (12.5-16.0) L 12/30/19 06:10 Hct 38.2 % (37.0-47.0) 12/30/19 06:10 MCV 87.4 fl (78-100) 12/30/19 06:10 MCH 27.9 pg (27-31) 12/30/19 06:10 MCHC 31.9 g/dl (32-36) L 12/30/19 06:10 RDW 20.0 % (11.5-14.0) H 12/30/19 06:10 Plt Count 323 K/mm3 (150-450) 12/30/19 06:10 MPV 10.5 fl (8-12.5) 12/30/19 06:10 Immature Gran % (Auto) 0.50 % (0.001-0.429) H 12/30/19 06:10 Immature Gran # (Auto) 0.04 K/mm3 (0.000-0.0310) H 12/30/19 06:10 Neutrophils % 73.2 % (42-75.0) 12/30/19 06:10 Lymphocytes % 10.3 % (20-51) L 12/30/19 06:10 Monocytes % 13.1 % (0.0-9) H 12/30/19 06:10 Eosinophils % 2.3 % (0.0-3.0) 12/30/19 06:10 Basophils % 0.6 % (0.0-1.0) 12/30/19 06:10 Nucleated RBC % 0.0 k/mm3 (0-1) 12/30/19 06:10 Neutrophils # 5.7 K/mm3 (1.3-6.0) 12/30/19 06:10 Lymphocytes # 0.81 k/mm3 (1.5-3.5) L 12/30/19 06:10 Monocytes # 1.0 k/mm3 (0.0-1.0) 12/30/19 06:10 Eosinophils # 0.2 k/mm3 (0.0-0.7) 12/30/19 06:10 Absolute Basophils 0.1 k/mm3 (0.0-0.1) 12/30/19 06:10 ESR 14 mm/hr (0-15) 12/30/19 06:10 Sodium 138 mmol/L (132-142) 12/30/19 06:10 Plasma Sodium 138 mmol/L (130-142) 12/30/19 06:10 Potassium 3.2 mmol/L (3.4-4.6) L 12/30/19 06:10 Chloride 100 mmol/L (97-106) 12/30/19 06:10 Carbon Dioxide 30.4 mmol/L (24-32.6) 12/30/19 06:10 Anion Gap 10.8 mmol/L (6.8-13.8) 12/30/19 06:10 BUN 16 mg/dL (3-23) 12/30/19 06:10 Creatinine 0.93 mg/dL (0.4-1.4) 12/30/19 06:10 Est GFR (Non-Af Amer) 64 mL/min (60-130) D 12/30/19 06:10 BUN/Creatinine Ratio 17.2 (9.0-21.6) 12/30/19 06:10 Random Glucose 84 mg/dL (70-110) 12/30/19 06:10 Lactic Acid, Venous 1.6 mmol/L (0.4-2.0) 12/29/19 16:10 Calcium 7.6 mg/dL (7.9-10.9) L 12/30/19 06:10 Calcium Adj for Albumin 9.0 mg/dL (8.4-10.2) 12/30/19 06:10 Total Bilirubin 3.6 mg/dL (0.0-1.1) H 12/30/19 06:10 AST 116 U/L (0-48) H 12/30/19 06:10 ALT 76 U/L (19-67) H 12/30/19 06:10 Alkaline Phosphatase 1254 U/L (50-170) H 12/30/19 06:10 B-Natriuretic Peptide 441 pg/mL (5-325) H 12/29/19 13:02 Total Protein 4.6 gm/dL (6.2-8.2) L 12/30/19 06:10 Albumin 1.8 gm/dl (3.4-5.0) L 12/30/19 06:10 Amylase 29 U/L (25-115) 12/29/19 13:02 Lipase 75 U/L (73-393) 12/30/19 06:10 Urine Color Brown 12/29/19 19:55 Urine Appearance Cloudy (CLEAR) 12/29/19 19:55 Urine pH 5.5 pH (5.0-7.0) 12/29/19 19:55 Ur Specific Hammond 1.025 SP.GR. (1.005-1.010) 12/29/19 19:55 Urine Protein 15 mg/dL (NEGATIVE) H 12/29/19 19:55 Urine Glucose (UA) Negative mg/dL (NEGATIVE) 12/29/19 19:55 Urine Ketones Negative mg/dL (NEGATIVE) 12/29/19 19:55 Urine Blood Negative /ul (NEGATIVE) 12/29/19 19:55 Urine Nitrate Positive (NEGATIVE) H 12/29/19 19:55 Urine Bilirubin 3 mg/dl (NEGATIVE) H 12/29/19 19:55 Urine Ictotest Positive (NEGATIVE) H 12/29/19 19:55 Prot Sulfosalicylic Acd Negative mg/dL (0) 12/29/19 19:55 Urine Urobilinogen >=8.0 EU/dl (NORMAL) H 12/29/19 19:55 Ur Leukocyte Esterase 25 /ul (NEGATIVE) H 12/29/19 19:55 Urine RBC None seen /hpf (0-5) 12/29/19 19:55 Urine WBC 5-10 /hpf (0-5) H 12/29/19 19:55 Ur Epithelial Cells 5-10 /hpf (0-5) H 12/29/19 19:55 Urine Bacteria 3+ (NONE) H 12/29/19 19:55 Urine Culture Comments Culture to follow 12/29/19 19:55 SARS-CoV-2 (PCR) Not detected (ND) 12/29/19 13:44 Assessment/Plan - Narrative Narrative: 1. Rehydration 2. Treat urinary tract infection 3. Rediscuss appropriateness of hospice 4. Treat the nausea with vomiting 5. Serial lab daily 6. Dr. Campbell to assume management today. - Assessment/Plan (1) Pancreatic mass Problem: Chronic (2) Common bile duct obstruction Problem: Acute (3) Vomiting Problem: Acute Qualifiers: Vomiting type: unspecified Vomiting Intractability: unspecified Nausea presence: with nausea Qualified Code(s): R11.2 - Nausea with vomiting, unspecified (4) Pancreatic cancer Problem: Suspected Qualifiers: Pancreatic malignancy location: head of pancreas (5) COPD (chronic obstructive pulmonary disease) Problem: Chronic Qualifiers: COPD type: emphysema Emphysema type: panlobular Qualified Code(s): J43.1 - Panlobular emphysema (6) Tobacco abuse Problem: Chronic (7) Hypokalemia Problem: Chronic (8) Hypoalbuminemia due to protein-calorie malnutrition Problem: Chronic (9) Malnutrition Problem: Chronic Qualifiers: Malnutrition type: protein-calorie malnutrition Protein-calorie malnutrition severity: severe Qualified Code(s): E43 - Unspecified severe protein-calorie malnutrition (10) Abdominal pain Problem: Chronic Qualifiers: Abdominal location: right upper quadrant Qualified Code(s): R10.11 - Right upper quadrant pain (11) Abdominal ascites Problem: Chronic Qualifiers: Ascites type: malignant Qualified Code(s): R18.0 - Malignant ascites
[2019-12-30] MEDS ORDERED: CIPROFLOXACIN HCL 500 MG TABLET PO ONE (11:57)
--- NOTE | 2019-12-30 12:34 | PN ---
Hali Note - Interim Date: 12/30/19 Time: 12:00 Narrative: 12/30/19 12:29 30 minute conversation with patient. Family not here now. Explained she almost certainly has pancreatic cancer which is contributing to her weight loss, causing ascites, causing pain and vomiting, and now growing rapidly to block off the common bile duct. I really think a pancreatic biopsy is not needed for the diagnosis, given how this tumor is behaving and how it looks on the MRI. I explained that her life expectancy is probably measured in days or perhaps a month, but that this kind of estimate is always fraught with potential error. I recommended and she agreed to a repeat consult with hospice. We will control her significant abdominal and bilateral leg pain. Morphine worked well previously, and we will use it again. We will use dissolvable ondansetron for nausea. Her ascites will continue to accumulate rapidly. I explained to her that there is no way to cure this tumor. She MAY have a UTI, so until we get the culture back, I will prescribe Cipro.
--- NOTE | 2019-12-30 12:35 | PN ---
Progess Note - Interim Date: 12/30/19 Time: 12:34 Narrative: 12/30/19 12:34 I did not discuss with her DNR, but that is the most appropriate. I will discuss this with her in the near future.
[2019-12-30] MEDS ORDERED: MORPHINE SULFATE 10 MG/0.5 ML SYRINGE PO PRN (12:36)
[2019-12-30] MEDS: ONDANSETRON 8 MG TAB.RAPDIS PO PRN ×2 (13:21→23:47)
[2019-12-30] MEDS: ENOXAPARIN SODIUM 40 MG/0.4 ML SYRG SC SCH (16:40)
[2019-12-30] MEDS: CIPROFLOXACIN HCL 500 MG TABLET PO SCH (20:47)
--- NOTE | 2019-12-31 07:02 | DS ---
Date of Discharge:: 12/31/19 Hospital Course: Main problems symptomatically have been pain and vomiting. On this admission evidence of bile duct obstruction (from tumor growth) emerged. Chemistry results from this morning's blood draw are still pending at 6:30 AM. U/A suggested possible UTI. Culture so far is "ruling out pathogen".We started Cipro which we will continue for 5 day. She vomited once before midnight last night. No vomiting since. She does not feel nauseated now. Her pain has been controlled with prn morphine. She is having no pain now. Her pain is abdominal and bilateral legs. Sometimes low back. Yesterday I had another long conversation with her about her medical situation. She almost certainly (even without biopsy results) has pancreatic cancer, which is now beginning to obstruct her bowel duct. Depending on how things go, a stent might provide some palliation. Her prognosis is poor, probably measured in weeks or months. It is true that her oncologist has scheduled a pancreatic biopsy at the [facility]. I discussed hospice with her once again yesterday, which she hasn't yet chosen. Depending on how the morning unfolds, she may be able to go home later today. As of 6:30 this morning she hasn't decided whether she will go home with home health or with hospice. As far as home health goes, this morning she was evaluated by me face to face for that referral. She is homebound. She is very weak. She has had ongoing problems with vomiting and pain. She has also had and will have rapidly recur ring ascites. Addendum at 9:30 AM: patient has selected [facility] home health. Procedures Performed: none - had paracentesis before going to ER before being admitted Results and Findings: Pending Mircobiology Results 12/29/19 13:40 Blood Blood Culture - Preliminary NO GROWTH 24 HOURS 12/29/19 13:02 Blood Blood Culture - Preliminary NO GROWTH 24 HOURS 12/29/19 19:55 Urine,Clean Catch Urine Culture - Preliminary Ruling Out Pathogen Lab Pending Results 12/29/19 13:02: WBC 11.3 H, RBC 4.92, Hgb 14.0, Hct 43.4, MCV 88.2, MCH 28.5, MCHC 32.3, RDW 20.3 H, Plt Count 404, MPV 10.6, Immature Gran % (Auto) 0.30, Immature Gran # (Auto) 0.03, Neutrophils % 85.1 H, Lymphocytes % 5.4 L, Monocytes % 8.8, Eosinophils % 0.1, Basophils % 0.3, Nucleated RBC % 0.0, Neutrophils # 9.7 H, Lymphocytes # 0.61 L, Monocytes # 1.0, Eosinophils # 0.0, Absolute Basophils 0.0 12/29/19 13:02: Sodium 136, Plasma Sodium 136, Potassium 3.1 L, Chloride 98, Carbon Dioxide 32.1, Anion Gap 9.0, BUN 18 D, Creatinine 1.27, Est GFR (Non-Af Amer) 44 L D, BUN/Creatinine Ratio 14.2, Random Glucose 113 H, Calcium 8.4, Calcium Adj for Albumin 9.5, Total Bilirubin 3.4 H, AST 91 H, ALT 86 H, Alkaline Phosphatase 1301 H, B-Natriuretic Peptide 441 H, Total Protein 5.4 L, Albumin 2.2 L 12/29/19 13:02: Lactic Acid, Venous 2.1 H 12/29/19 13:02: Amylase 29, Lipase 118 12/29/19 13:44: SARS-CoV-2 (PCR) Not detected 12/29/19 16:10: Lactic Acid, Venous 1.6 12/29/19 19:55: Urine Color Brown, Urine Appearance Cloudy, Urine pH 5.5, Ur Specific Bessie 1.025, Urine Protein 15 H, Urine Glucose (UA) Negative, Urine Ketones Negative, Urine Blood Negative, Urine Nitrate Positive H, Urine Bilirubin 3 H, Urine Ictotest Positive H, Prot Sulfosalicylic Acd Negative, Urine Urobilinogen >=8.0 H, Ur Leukocyte Esterase 25 H, Urine RBC None seen, Urine WBC 5-10 H, Ur Epithelial Cells 5-10 H, Urine Bacteria 3+ H, Urine Culture Comments Culture to follow 12/30/19 06:10: WBC 7.8 D, RBC 4.37, Hgb 12.2 L, Hct 38.2, MCV 87.4, MCH 27.9, MCHC 31.9 L, RDW 20.0 H, Plt Count 323, MPV 10.5, Immature Gran % (Auto) 0.50 H, Immature Gran # (Auto) 0.04 H, Neutrophils % 73.2, Lymphocytes % 10.3 L, Monocytes % 13.1 H, Eosinophils % 2.3, Basophils % 0.6, Nucleated RBC % 0.0, Neutrophils # 5.7, Lymphocytes # 0.81 L, Monocytes # 1.0, Eosinophils # 0.2, Absolute Basophils 0.1 12/30/19 06:10: ESR 14 12/30/19 06:10: Sodium 138, Plasma Sodium 138, Potassium 3.2 L, Chloride 100, Carbon Dioxide 30.4, Anion Gap 10.8, BUN 16, Creatinine 0.93, Est GFR (Non-Af Amer) 64 D, BUN/Creatinine Ratio 17.2, Random Glucose 84, Calcium 7.6 L, Calcium Adj for Albumin 9.0, Total Bilirubin 3.6 H, AST 116 H, ALT 76 H, Alkaline Phosphatase 1254 H, Total Protein 4.6 L, Albumin 1.8 L, Lipase 75 Discharge Location: Home Disposition: Home Health Service Home Health Agency: [facility] Home Health Condition: Poor Face to Face Encounter completed per [facility] Guidelines: Yes Discharge Activity: Activity as tolerated Discharge Diet: General/regular food Referrals: Domo Graves MD [Primary Care Provider] - Additional Patient Instructions (free text): [facility] new. Please call report and fax orders upon discharge. CBC and CMP in 1 week. Call as needed for questions or problems. Appointment with Dr. Campbell in 1 week. Prescriptions (Any new or edited meds): Ciprofloxacin HCl [Cipro] 500 mg PO BID #10 tab Transmission Status: Received by [place], [place] Potassium Chloride [K-Dur] 20 meq PO BID #60 tablet.sa Transmission Status: Received by [place] Morphine Sulfate [Morphine Sulfate Conc. Oral Solution] 5 mg PO Q2H PRN #30 ml PRN Reason: Pain Transmission Status: Received by [place] chlorproMAZINE HCL [Thorazine] 5 mg PO TID #90 tab Transmission Status: Received by [place] Ondansetron [Zofran Odt] 8 mg PO QID PRN #120 tab.rapdis PRN Reason: Nausea And Vomiting Transmission Status: Received by [place], [place] Complete Home Medications List: Complete Home Medication List: levothyroxine 125 mcg tablet 125 mcg PO DAILY #30 tab 05/13/19 acetaminophen 500 mg tablet 500 mg PO TID PRN #0.1 tab 12/15/19 Ciprofloxacin HCl [Cipro] 500 mg PO BID #10 tab 12/31/19 Morphine Sulfate [Morphine Sulfate Conc. Oral Solution] 5 mg PO Q2H PRN #30 ml 12/31/19 Ondansetron [Zofran Odt] 8 mg PO QID PRN #120 tab.rapdis 12/31/19 Potassium Chloride [K-Dur] 20 meq PO BID #60 tablet.sa 12/31/19 chlorproMAZINE HCL [Thorazine] 5 mg PO TID #90 tab 12/31/19 Amb Orders for Discharge: CBC Time Frame: 1 Week, Facility: [facility], Location: Laboratory Comprehensive Metabolic Panel Time Frame: 1 Week, Facility: [facility], Location: Laboratory Forms: Patient Portal Registration
[2019-12-31 07:06] LABS: Albumin * 1.8 gm/dl (3.4-5.0); Anion Gap 10.4 mmol/L (6.8-13.8); BUN/Creatinine Ratio 16.3 (9.0-21.6); Bilirubin Direct 2.7 mg/dL (0.0-0.3); Bilirubin, Total 3.1 mg/dL (0.0-1.1); Ca. Corrected For Albumin 9.1 mg/dL (8.4-10.2); Calcium * 7.7 mg/dL (7.9-10.9); Carbon Dioxide 28.7 mmol/L (24-32.6); Potassium 4.1 mmol/L (3.4-4.6); Total Protein 4.7 gm/dL (6.2-8.2)
[2019-12-31] MEDS: LEVOTHYROXINE SODIUM 125 MCG TABLET PO SCH (07:18)
[2019-12-31] MEDS ORDERED: chlorproMAZINE HCL 10 MG TABLET PO SCH (09:00)
[2019-12-31] MEDS: DICLOFENAC SODIUM 100 APPL TUBE TP SCH (09:01)
[2019-12-31] MEDS: ONDANSETRON 8 MG TAB.RAPDIS PO PRN (09:01)
[2019-12-31] MEDS: CIPROFLOXACIN HCL 500 MG TABLET PO SCH (09:01)
[2019-12-31] MEDS: POTASSIUM CHLORIDE 20 MEQ TABLET.SA PO SCH (09:01)
[2019-12-31] MEDS: [UNRECOGNIZED DRUG - OTHER] PO SCH (09:02)
[2019-12-31 10:57] VITALS: BP 110/66
== END 2019-12-31 11:20 | disposition home health service (06) ==
LOC: MS 12:17 → ER 12:17 → MS 17:45
PROVIDERS: ADMIT Family Medicine; ATTEND Allergy & Immunology
DX: C25.9 Malignant neoplasm of pancreas, unspecified; B95.4 Other streptococcus as the cause of diseases classified elsewhere; N39.0 Urinary tract infection, site not specified; K83.1 Obstruction of bile duct; E03.9 Hypothyroidism, unspecified; J44.9 Chronic obstructive pulmonary disease, unspecified; Z87.891 Personal history of nicotine dependence; R11.2 Nausea with vomiting, unspecified; R19.02 Left upper quadrant abdominal swelling, mass and lump

== ENCOUNTER 2020-01-01 11:10 | Observation (INO) ==
--- NOTE | 2020-01-01 11:34 | ERNOTE ---
Neuro HPI ER Record Presenting Symptoms: impaired speech, confusion Time Seen by Provider: 01/01/20 11:19 Source: EMS Exam Limitations: no limitations Immunizations: IMMUNIZATION HX Immunizations Up to Date No History of Influenza Vaccine No Hx Pneumococcal Vaccination No Allergies/Adverse Reactions: Allergies Allergy/AdvReac Type Severity Reaction Status Date / Time codeine [Codeine] AdvReac Mild Vomiting Verified 01/01/20 14:55 Home Medications: HOME MEDICATIONS levothyroxine 125 mcg tablet 125 mcg PO DAILY #30 tab 05/13/19 [Last Taken 11/23/19] acetaminophen 500 mg tablet 500 mg PO TID PRN #0.1 tab 12/15/19 [Last Taken Unknown] Ciprofloxacin HCl [Cipro] 500 mg PO BID #10 tab 12/31/19 [Last Taken Unknown] Morphine Sulfate [Morphine Sulfate Conc. Oral Solution] 5 mg PO Q2H PRN #30 ml 12/31/19 [Last Taken Unknown] Ondansetron [Zofran Odt] 8 mg PO QID PRN #120 tab.rapdis 12/31/19 [Last Taken Unknown] Potassium Chloride [K-Dur] 20 meq PO BID #60 tablet.sa 12/31/19 [Last Taken Unknown] chlorproMAZINE HCL [Thorazine] 5 mg PO TID #90 tab 12/31/19 [Last Taken Unknown] - History of Present Illness Narrative: Patient brought in by EMS with reports a seizure. Daughter states that she given the patient some Ensure she turned around to get something in the next room and came back and the patient was having repetitive movements and decreased mental status and EMS was called. when they arrived she was having repetitive movement of her mouth and head. Patient is also not talking or answering questions other than a simple nod or shake of the head. EMS had difficulty getting a blood pressure and did get IV access and started normal saline wide open prior to arriving. EMS state they gave her 5 mg of midazolam which did help reduce the rhythmic movements. Onset: sudden onset - around 10:00 Severity: mild - Character of Deficits Additional Deficits: Present: impaired speech Baseline Cognition: Present: alert, oriented x 4 Prior Treament: Reports: recently seen, treated by physician, recently hospitalized Review of Systems - Narrative Narrative: ROS unavailable at this time Some ROS was collected through patient's daughter - Review of Systems Constitutional: Absent: recent illness Respiratory: Present: shortness of breath - Chronic COPD Cardiology: Present: edema - Left leg. Gastrointestinal/Abdominal: Present: vomiting - After the seizure-like activity had started, abdominal pain Skin: Absent: rash Medical History (Last Reviewed 01/01/20 @ 11:26 by Christopher Peters DO) COPD (chronic obstructive pulmonary disease) (Chronic) Osteoarthritis (Chronic) Lung abscess (Resolved) Crohns disease (Chronic) Onset Date: Unknown History of insomnia (Chronic) Onset Date: 11/07/15 History of pneumonia (Resolved) Onset Date: 06/24/12 Anxiety Pancreatic cancer Alzheimers disease Hypothyroidism History of cerebrovascular accident in adulthood Onset Date: ~1999 Surgical History: Surgical History (Last Reviewed 01/01/20 @ 11:26 by Christopher Peters DO) History of cholecystectomy (Resolved) Onset Date: ~1969 open History of thyroid surgery (Resolved) Onset Date: ~1969 History of ovarian cystectomy (Resolved) Onset Date: ~1969 2 cyst removed History of cataract surgery (Resolved) Onset Date: Unknown History of appendectomy (Resolved) Onset Date: ~1969 History of bronchoscopy (Resolved) Onset Date: 03/13/15 06/21/11 Dr Becerril. 03/13/15 Catrachito-benign cellular elements. No pathogens History of colonoscopy (Resolved) Onset Date: 02/12/11 02/12/11 Tinguradha -tubular adenoma History of hysterectomy (Resolved) Onset Date: ~1979 1979' complete History of salpingo-oophorectomy (Resolved) Onset Date: 02/14/99 Dr Dolan-bilateral History of tonsillectomy (Resolved) Onset Date: Unknown History of breast surgery Onset Date: ~1969 right-cyst removed History of chest tube placement Onset Date: ~1998 Had "bags of fluid removed from on top of lungs 2 times" History of nasal surgery Onset Date: ~1969 1070's-lump on top of nose Family History: Family History (Last Reviewed 01/01/20 @ 11:26 by Christopher Peters DO) Father , age 60's Myocardial infarction Mother , age 62 Diabetes Heart disease Myocardial infarction Brother , age 7-drowned No problems noted. Sister , age 70's-lung disease No problems noted. Sister Diabetes Heart disease Social History: (Last Reviewed 01/01/20 @ 11:26 by Christopher Peters DO) Social History: Marital status: number of children: 2 current occupational status: disabled Highest education level completed: 11th grade Service: No Tobacco: Smoking Status: Former smoker Alcohol: alcohol intake: former Substance Use: substance use type: does not use Dietary Habits: caffeine: Yes Moni/Mu-Ism: special moni needs: No Physical Exam - Physical Exam General Appearance: Present: wd/wn, alert Head Exam: Present: normal inspection, no evidence of injury Eye Exam: PERRL: bilateral Ears, Nose, Throat: Present: normal ENT inspection Neck: Present: normal inspection, nontender Respiratory: Present: no respiratory distress, no accessory muscle use, lungs clear Cardiovascular/Chest: Present: no murmur, tachycardia Gastrointestinal/Abdominal: Present: normal bowel sounds, nontender, nondistended, soft Extremity Exam: Present: extremity edema - Left leg with 3+ pitting edema to above the knee. Absent: bony tenderness, joint redness Neurological Exam: Present: alert, other - Will obey simple commands, no verbal response. Has deficit from previous CVA which includes right arm and leg weakness. Also having some head and neck twitching that is rhythmic but no other rhythmic contractions noted Skin Exam: Present: normal color, warm/dry Lymphatic Exam: Present: no adenopathy [place] Coma Scale - Assess Eye Opening: Spontaneous Motor: Obeys Commands Verbal: None - Total Coma Scale Total: 11 Initial Stroke Assessment - Date/Time of assessment Stroke Scale Date: 01/01/20 Stroke Scale Time: 11:20 - NIH Stroke Scale Level of Consciousness: Alert LOC Questions (Year and Age): Answers neither correctly LOC Commands (open/close eyes/fist): Performs both correctly Lateral Gaze Paresis: None Visual Field Loss: No visual loss Facial Palsy: Normal movement Right Arm Motor (10 sec hold): No drift Left Arm Motor (10 sec hold): Drift Right Leg Motor (5 sec hold): No drift Left Leg Motor (5 sec hold): Drift Limb Ataxia (finger/nose heel/cordero): Absent If present, ataxia in:: Left arm, Left leg Sensory Loss (pinprick arms/legs/face): No sensory loss Language Aphasia (description/naming/reading): Mute, global aphasia Dysarthria (speech clarity): Untestable Neglect Inattention (visual/tactile/auditory/spatial/person): No neglect Initial Stroke Scale Score:: 7 - Stroke Risk Assessment Stroke Risk Assessment Level: 5-15 Mild-Mod Severe Imp Stroke Inclusion/Exclusion Cri - Inclusion Questions: Yes Onset of symptoms <3 1/2 hours of admission to ETC: Yes - Exclusion Questions: Major symptoms rapidly improving: No Seizure at onset of stroke: Yes SBP>185; DBP>110 at time treatment is to begin: No Patient received Heparin or Coumadin within 48 hours: No Patient has elevated PTT or Protime/INR: No Stroke, head injury, major surgery, serious trauma in 3 mon.: No Previous intracranial hemmorhage: No Recent AL: No Known AV malformation or aneurysm: No Blood glucose <50mg/dl or >400mg/dl: No NIHSS Score <4 or >22 performed by physician: No - Total NIHSS Score Score:: 7 Progress - Results and Orders Patient's Lab Results:: I have reviewed the patient's lab results. - Vital Signs Patient's Vital Signs:: I have reviewed the patient's vital signs. - EKG EKG #1 EKG read: Interp. by me EKG Comments: Total EKG has a lot of artifact due to movement. Computer reads marked ST elevation but this seems to only be in areas of significant artifact. Computer also reads electronic atrial pacemaker which she has none I think it may be reading her rhythmic facial movement as a pacemaker spike. EKG #2 EKG: supraventricular tachycardia - sinus tach, nonspecific ST T wave changes EKG read: Interp. by me - X-Ray X-Ray #1 X-Ray: chest Interpretation: Reviewed by me X-ray Comments: Findings: There is a hiatal hernia. Heart size and vascularity appear within normal limits. There is underlying emphysema. There are granulomatous and atherosclerotic calcifications. There are no focal infiltrates or effusions on this single view. There are postsurgical changes in the cervical thoracic region. IMPRESSION: CHRONIC FINDINGS DISCUSSED. NO ACUTE CARDIOPULMONARY DISEASE OTH ERWISE IDENTIFIED. Electronically signed by Marcos Ocampo M.D.. - CT/Ultrasound CT/Ultrasound Narrative: CT head: Findings: Exam shows encephalomalacia left frontal lobe and left basal ganglia compatible with remote infarcts. There are no other focal abnormal hypodensities to suggest vascular territory infarct. There is no positive mass effect or midline shift. There is no evidence for intracranial hemorrhage. Visualized paranasal sinuses and mastoid air cells appear adequately aerated. IMPRESSION: STABLE EXAM. CHRONIC REMOTE LEFT-SIDED INFARCTS. NO ACUTE INTRACRANIAL PATHOLOGY OTHERWISE IDENTIFIED. Electronically signed by Marcos Ocampo M.D.. - Progress/Reassessment Progress:: Improved Progress Note-Subjective: 01/01/20 11:33 Initially CODE STATUS was unknown but family was consulted and confirmed a DNR status 01/01/20 12:51 Patient does seem to be improving she is now talking to me when I asked how she is doing she states she is not feeling very well. Her facial movements seem to be more generalized into her trunk twitching as well. We will give IV Valium 01/01/20 12:54 I think with patient's improvement and as well as the twitching which very well could be seizure activity that she would not be a candidate for TPA. 01/01/20 13:22 The Valium did help with the patient's twitching for short time allowed us to get a good EKG G which did not show any acute changes. Did drop her blood pressure somewhat and reduce her responsiveness but this returned back fairly quickly 01/01/20 13:45 I spoke with the patient's daughter and she feels that she would like to keep the patient comfortable as they have talked about hospice but have not gone forward with that yet. Spoke with Dr. Laughlin and he agrees with an observation admit for comfort cares. 01/01/20 13:55 I spoke with both daughters in collaboration and they both feel that as long as we can keep the patient comfortable that is their goal at this point Departure Clinical Impression: Pancreatic mass, Elevated troponin, TIA (transient ischemic attack), Seizure- like activity - Departure Disposition: Still a patient Condition: Fair
[2020-01-01] MEDS ORDERED: diphenhydrAMINE HCL 50 MG/ML VIAL IV ONE (11:43)
[2020-01-01 12:37] LABS: Hematocrit 38.7 % (37.0-47.0); Hemoglobin 12.4 gm/dL (12.5-16.0); Mean Corpuscular Hemoglobin 28.5 pg (27-31); Mean Platelet Volume 10.2 fl (8-12.5); Neutrophil # 9.7 K/mm3 (1.3-6.0); Neutrophil % 87.4 % (42-75.0); Platelet Count 340 K/mm3 (150-450); Red Blood Count 4.35 M/mm3 (4.2-5.4); Red Cell Distribution Width 20.2 % (11.5-14.0)
[2020-01-01 12:48] LABS: INR 1.22 INR (0.92-1.08); Partial Thrombolplastin Time 25.7 Seconds (24-32)
[2020-01-01] MEDS ORDERED: DIAZEPAM 5 MG/ML SYRG IV ONE (12:48)
[2020-01-01 12:59] LABS: Albumin * 1.8 gm/dl (3.4-5.0); Anion Gap 12.3 mmol/L (6.8-13.8); Bilirubin, Total 3.3 mg/dL (0.0-1.1); Ca. Corrected For Albumin 9.4 mg/dL (8.4-10.2); Carbon Dioxide 24.3 mmol/L (24-32.6); Potassium 4.6 mmol/L (3.4-4.6); Total Protein 4.7 gm/dL (6.2-8.2); Troponin I 0.341 ng/mL (0.00-0.10)
[2020-01-01] MEDS ORDERED: NORMAL SALINE 1,000 ML IV ONE (13:07)
--- NOTE | 2020-01-01 15:07 | HP ---
Chief Complaint - Chief Complaint Date of Service: 01/01/20 Time of Service: 15:07 Chief Complaint: seizure like activity History of Present Illness: Lynn Romano is a 66-year-old white female patient of Dr. Campbell with past medical history of cerebrovascular accident with right kimberly-residual, pancreatic mass presumed to be pancreatic cancer, chronic renal failure stage III, malnutrition, hypothyroidism, hypertension, who was admitted on 01/01/2020 because of a seizure-like activity. The patient was just discharged from the hospital yesterday and was staying at her daughter's house. This morning the daughter gave her a protein rich drink and patient started choking. As per daughter she started having shaking and tremors of her whole body, unresponsive, with a blank stare and she called the EMS. By the time the EMS came in about 20 to 30 minutes the patient started waking up. She was given midazolam and while she was in route by EMS noted she had some focal twitching of her face. In the emergency room her head CT scan showed chronic remote left-sided infarcts. No acute intracranial pathology otherwise identified. Her chest x-ray showed no chronic findings with no acute cardiopulmonary disease. Her EKG showed sinus tachycardia with nonspecific ST-T wave changes as read by ED. Her troponin was slightly elevated at 0.3. White blood cell count was 11 with hemoglobin of 12.4, electrolytes within normal limits, GFR of 54. She got IV volume in the emergency room x1. The patient was then admitted for observation. Currently patient is awake alert oriented x2. She is garbling her speech which the daughter said she was not doing before this morning's episode. Medical History (Last Reviewed 01/01/20 @ 14:54 by Ahmet Brown RN) COPD (chronic obstructive pulmonary disease) (Chronic) Osteoarthritis (Chronic) Lung abscess (Resolved) Crohns disease (Chronic) Onset Date: Unknown History of insomnia (Chronic) Onset Date: 11/07/15 History of pneumonia (Resolved) Onset Date: 06/24/12 Anxiety Pancreatic cancer Alzheimers disease Hypothyroidism History of cerebrovascular accident in adulthood Onset Date: ~1999 Surgical History: Surgical History (Last Reviewed 01/01/20 @ 14:54 by Ahmet Brown RN) History of cholecystectomy (Resolved) Onset Date: ~1969 open History of thyroid surgery (Resolved) Onset Date: ~1969 History of ovarian cystectomy (Resolved) Onset Date: ~1969 2 cyst removed History of cataract surgery (Resolved) Onset Date: Unknown History of appendectomy (Resolved) Onset Date: ~1969 History of bronchoscopy (Resolved) Onset Date: 03/13/15 06/21/11 Dr Becerril. 03/13/15 Bagan-benign cellular elements. No pathogens History of colonoscopy (Resolved) Onset Date: 02/12/11 02/12/11 Tinguely -tubular adenoma History of hysterectomy (Resolved) Onset Date: ~1979 1979's complete History of salpingo-oophorectomy (Resolved) Onset Date: 02/14/99 Dr Dolan-bilateral History of tonsillectomy (Resolved) Onset Date: Unknown History of breast surgery Onset Date: ~1969 right-cyst removed History of chest tube placement Onset Date: ~1998 Had "bags of fluid removed from on top of lungs 2 times" History of nasal surgery Onset Date: ~1969 1070's-lump on top of nose Family History: Family History (Last Reviewed 01/01/20 @ 14:54 by Ahmet Brown RN) Father , age 60's Myocardial infarction Mother , age 62 Myocardial infarction Heart disease Diabetes Brother , age 7-drowned No problems noted. Sister , age 70's-lung disease No problems noted. Sister Heart disease Diabetes Social History: (Last Reviewed 01/01/20 @ 14:54 by Ahmet Brown RN) Social History: Marital status: number of children: 2 current occupational status: disabled Highest education level completed: 11th grade Service: No Tobacco: Smoking Status: Former smoker Alcohol: alcohol intake: former Substance Use: substance use type: does not use Dietary Habits: caffeine: Yes Moni/Scientologist: special moni needs: No Review Of Systems (GEN) - Review of Systems Generalized/Overall Review: Present: Weakness. Absent: Chills, Fever EENTM: Absent: Blurred Vision Respiratory: Absent: Cough, Shortness of Breath, Wheezing Cardiac: Absent: Chest Pain, Edema, Palpitations Abdominal: Absent: Nausea, Vomiting, Abdominal Pain Genitourinary: Absent: Urgency, Frequency Musculoskeletal: Absent: Joint Pain, Back Pain Neurological: Present: Seizure, Other - Garbling of speech. Absent: Headache Skin: Absent: Lesions, Rash Endocrine: Absent: Intolerance to Cold, Intolerance to Heat Misc: All systems neg except as marked Immunizations: IMMUNIZATION HX Immunizations Up to Date Yes History of Influenza Vaccine Yes Hx Pneumococcal Vaccination More Information Required Allergies/Adverse Reactions: Allergies Allergy/AdvReac Type Severity Reaction Status Date / Time codeine [Codeine] AdvReac Mild Vomiting Verified 01/01/20 14:55 Home Medications: HOME MEDICATIONS levothyroxine 125 mcg tablet 125 mcg PO DAILY #30 tab 05/13/19 [Last Taken 11/23/19] acetaminophen 500 mg tablet 500 mg PO TID PRN #0.1 tab 12/15/19 [Last Taken Unknown] Ciprofloxacin HCl [Cipro] 500 mg PO BID #10 tab 12/31/19 [Last Taken Unknown] Morphine Sulfate [Morphine Sulfate Conc. Oral Solution] 5 mg PO Q2H PRN #30 ml 12/31/19 [Last Taken Unknown] Ondansetron [Zofran Odt] 8 mg PO QID PRN #120 tab.rapdis 12/31/19 [Last Taken Unknown] Potassium Chloride [K-Dur] 20 meq PO BID #60 tablet.sa 12/31/19 [Last Taken Unknown] chlorproMAZINE HCL [Thorazine] 5 mg PO TID #90 tab 12/31/19 [Last Taken Unknown] Mirtazapine 7.5 mg PO HS 01/01/20 [Last Taken Unknown] Exam - Exam Vital Signs: Vital Signs - Last Taken Temp 36.2 C 01/01/20 11:13 Pulse 103 H 01/01/20 14:45 Resp 23 H 01/01/20 14:45 BP 104/59 01/01/20 14:45 Pulse Ox 93 01/01/20 14:45 Constitutional: Present: Alert, Cooperative, Thin and frail. Absent: Well nourished ENT Exam: Present: hearing grossly normal Eye Exam: bilateral eye: normal inspection, PERRL, EOMI Neck: Present: supple. Absent: lymphadenopathy (R), lymphadenopathy (L) Respiratory: Present: decreased breath sounds, No rales, No wheezing Cardiovascular/Chest: Present: regular rate, rhythm, no JVD, no murmur Abdomen: Present: Normal bowel sounds, soft, nontender, nondistended Extremity: Present: no pedal edema, no calf tenderness Neurologic: Present: alert - AAO x 2, other - Right hemiparesis, subtle, positive garbled speech. Absent: facial droop Diagnostic Studies: Abnormal Lab Results 01/01/20 01/01/20 01/01/20 Range/Units 12:25 12:25 12:25 WBC 11.0 H D (4.0-10.5) K/mm3 Hgb 12.4 L (12.5-16.0) gm/dL RDW 20.2 H (11.5-14.0) % Immature Gran # (Auto) 0.04 H (0.000-0.0310) K/mm3 Neutrophils % 87.4 H (42-75.0) % Lymphocytes % 3.4 L (20-51) % Neutrophils # 9.7 H (1.3-6.0) K/mm3 Lymphocytes # 0.37 L (1.5-3.5) k/mm3 PT 12.0 H (9.1-10.7) Seconds INR (Anticoag Therapy) 1.22 H (0.92-1.08) INR D-Dimer (0.19-0.49) ug/mL Est GFR (Non-Af Amer) 54 L (60-130) mL/min Random Glucose 113 H (70-110) mg/dL Total Bilirubin 3.3 H (0.0-1.1) mg/dL AST 106 H (0-48) U/L ALT 74 H (19-67) U/L Alkaline Phosphatase 1332 H (50-170) U/L Troponin I 0.341 H* (0.00-0.10) ng/mL Total Protein 4.7 L (6.2-8.2) gm/dL Albumin 1.8 L (3.4-5.0) gm/dl 01/01/20 Range/Units 12:25 WBC (4.0-10.5) K/mm3 Hgb (12.5-16.0) gm/dL RDW (11.5-14.0) % Immature Gran # (Auto) (0.000-0.0310) K/mm3 Neutrophils % (42-75.0) % Lymphocytes % (20-51) % Neutrophils # (1.3-6.0) K/mm3 Lymphocytes # (1.5-3.5) k/mm3 PT (9.1-10.7) Seconds INR (Anticoag Therapy) (0.92-1.08) INR D-Dimer 1.38 H (0.19-0.49) ug/mL Est GFR (Non-Af Amer) (60-130) mL/min Random Glucose (70-110) mg/dL Total Bilirubin (0.0-1.1) mg/dL AST (0-48) U/L ALT (19-67) U/L Alkaline Phosphatase (50-170) U/L Troponin I (0.00-0.10) ng/mL Total Protein (6.2-8.2) gm/dL Albumin (3.4-5.0) gm/dl Laboratory Results WBC 11.0 K/mm3 (4.0-10.5) H D 01/01/20 12:25 RBC 4.35 M/mm3 (4.2-5.4) 01/01/20 12:25 Hgb 12.4 gm/dL (12.5-16.0) L 01/01/20 12:25 Hct 38.7 % (37.0-47.0) 01/01/20 12:25 MCV 89.0 fl (78-100) 01/01/20 12:25 MCH 28.5 pg (27-31) 01/01/20 12:25 MCHC 32.0 g/dl (32-36) 01/01/20 12:25 RDW 20.2 % (11.5-14.0) H 01/01/20 12:25 Plt Count 340 K/mm3 (150-450) 01/01/20 12:25 MPV 10.2 fl (8-12.5) 01/01/20 12:25 Immature Gran % (Auto) 0.40 % (0.001-0.429) 01/01/20 12:25 Immature Gran # (Auto) 0.04 K/mm3 (0.000-0.0310) H 01/01/20 12:25 Neutrophils % 87.4 % (42-75.0) H 01/01/20 12:25 Lymphocytes % 3.4 % (20-51) L 01/01/20 12:25 Monocytes % 8.4 % (0.0-9) 01/01/20 12:25 Eosinophils % 0.2 % (0.0-3.0) 01/01/20 12:25 Basophils % 0.2 % (0.0-1.0) 01/01/20 12:25 Nucleated RBC % 0.0 k/mm3 (0-1) 01/01/20 12:25 Neutrophils # 9.7 K/mm3 (1.3-6.0) H 01/01/20 12:25 Lymphocytes # 0.37 k/mm3 (1.5-3.5) L 01/01/20 12:25 Monocytes # 0.9 k/mm3 (0.0-1.0) 01/01/20 12:25 Eosinophils # 0.0 k/mm3 (0.0-0.7) 01/01/20 12:25 Absolute Basophils 0.0 k/mm3 (0.0-0.1) 01/01/20 12:25 ESR 12 mm/hr (0-15) 01/01/20 12:25 PT 12.0 Seconds (9.1-10.7) H 01/01/20 12:25 INR (Anticoag Therapy) 1.22 INR (0.92-1.08) H 01/01/20 12:25 PTT (Morgan) 25.7 Seconds (24-32) 01/01/20 12:25 D-Dimer 1.38 ug/mL (0.19-0.49) H 01/01/20 12:25 Sodium 133 mmol/L (132-142) 01/01/20 12:25 Plasma Sodium 133 mmol/L (130-142) 01/01/20 12:25 Potassium 4.6 mmol/L (3.4-4.6) 01/01/20 12:25 Chloride 101 mmol/L (97-106) 01/01/20 12:25 Carbon Dioxide 24.3 mmol/L (24-32.6) 01/01/20 12:25 Anion Gap 12.3 mmol/L (6.8-13.8) 01/01/20 12:25 BUN 14 mg/dL (3-23) 01/01/20 12:25 Creatinine 1.08 mg/dL (0.4-1.4) 01/01/20 12:25 Est GFR (Non-Af Amer) 54 mL/min (60-130) L 01/01/20 12:25 BUN/Creatinine Ratio 13.0 (9.0-21.6) 01/01/20 12:25 Random Glucose 113 mg/dL (70-110) H 01/01/20 12:25 Calcium 8.0 mg/dL (7.9-10.9) 01/01/20 12:25 Calcium Adj for Albumin 9.4 mg/dL (8.4-10.2) 01/01/20 12:25 Total Bilirubin 3.3 mg/dL (0.0-1.1) H 01/01/20 12:25 AST 106 U/L (0-48) H 01/01/20 12:25 ALT 74 U/L (19-67) H 01/01/20 12:25 Alkaline Phosphatase 1332 U/L (50-170) H 01/01/20 12:25 Troponin I 0.341 ng/mL (0.00-0.10) H* 01/01/20 12:25 Total Protein 4.7 gm/dL (6.2-8.2) L 01/01/20 12:25 Albumin 1.8 gm/dl (3.4-5.0) L 01/01/20 12:25 Assessment/Plan - Narrative Narrative: Lynn Romano was admitted for seizure-like activity which is new for her. Her head CT scan showed her old infarcts with no acute intracranial process. She does however garble her speech now which was not there according to the daughter this morning. We will transfer patient to acute status and order for an MRI, EEG on Friday. Her slightly elevated troponin is likely renal related or due increased demand ischemia. I did talk to them about hospice and they would like to speak first with case management for her their alternatives. - Assessment/Plan (1) Pancreatic mass Problem: Chronic (2) TIA (transient ischemic attack) Assessment: r/o sroke in evolution Problem: Acute (3) Seizure-like activity Problem: Acute (4) COPD (chronic obstructive pulmonary disease) Problem: Chronic Qualifiers: COPD type: emphysema Emphysema type: panlobular Qualified Code(s): J43.1 - Panlobular emphysema (5) Hypothyroidism Problem: Chronic Qualifiers: Hypothyroidism type: acquired Qualified Code(s): E03.9 - Hypothyroidism, unspecified (6) Hypertension Problem: Chronic Qualifiers: Hypertension type: essential hypertension Qualified Code(s): I10 - Essential (primary) hypertension (7) CKD (chronic kidney disease), stage III Problem: Chronic
[2020-01-01] MEDS ORDERED: DIAZEPAM 5 MG/ML SYRG IV PRN (16:39)
[2020-01-01] MEDS: DEXTROSE 5%-0.5 NORMAL SALINE 1,000 ML IV PRN (17:07)
[2020-01-01] MEDS ORDERED: ASPIRIN 300 MG SUPP.RECT RC ONE (17:31)
[2020-01-01] MEDS: ONDANSETRON HCL/PF 2 MG/ML VIAL IV PRN (20:57)
[2020-01-02] MEDS: ONDANSETRON HCL/PF 2 MG/ML VIAL IV PRN (03:44)
[2020-01-02] MEDS ORDERED: PROMETHAZINE HCL 12.5 MG SUPP.RECT RC ONE (04:22)
[2020-01-02 04:51] LABS: Hemoglobin 11.9 gm/dL (12.5-16.0); Mean Cell Volume 92.4 fl (78-100); Mean Corpuscular Hemoglobin 28.2 pg (27-31); Mean Corpuscular Hgb Conc 30.5 g/dl (32-36); Mean Platelet Volume 10.4 fl (8-12.5); Platelet Count 504 K/mm3 (150-450); Red Blood Count 4.22 M/mm3 (4.2-5.4); Red Cell Distribution Width 20.7 % (11.5-14.0); White Blood Count 18.8 K/mm3 (4.0-10.5)
[2020-01-02 05:13] LABS: Total Cells Counted 100
[2020-01-02 05:20] LABS: Band 5 % (0-2.0); Basophil 1 % (0-1); Immature Granulocyte 3 (0-1); Lymphocyte 11 % (20-51); Monocyte 6 % (0-9); Neutrophil 74 % (42-75); Neutrophil # 13.9 K/mm3 (1.3-6.0)
[2020-01-02 05:22] LABS: Platelet Estimate Increased (NORMAL); Poikilocytosis 1+; Target Cells Trace
[2020-01-02 05:36] LABS: Albumin * 1.7 gm/dl (3.4-5.0); BUN/Creatinine Ratio 18.1 (9.0-21.6); Bilirubin, Total 2.5 mg/dL (0.0-1.1); Ca. Corrected For Albumin 8.9 mg/dL (8.4-10.2); Calcium * 7.4 mg/dL (7.9-10.9); Carbon Dioxide 22.5 mmol/L (24-32.6); Potassium 5.5 mmol/L (3.4-4.6); Total Protein 3.9 gm/dL (6.2-8.2)
[2020-01-02] MEDS: DEXTROSE 5%-0.5 NORMAL SALINE 1,000 ML IV PRN ×2 (07:13→22:08)
[2020-01-02] MEDS ORDERED: ACETAMINOPHEN 325 MG TABLET PO PRN (07:31)
--- NOTE | 2020-01-02 08:33 | PN ---
Subjective - Date and Time Seen Date: 01/02/20 Time: 08:32 Subjective Narrative: Patient no longer twitiching/jerking. AAO x 3. mildly jaundiced.HR 119, sinus tachy. had several episodes of N/V last night. Objective - Review of Systems Generalized/Overall Review: Reports: Weakness. Denies: Chills, Fever EENTM: Denies: Blurred Vision Respiratory: Denies: Cough, Shortness of Breath Cardiac: Denies: Chest Pain, Edema, Palpitations Abdominal: Reports: Nausea, Vomiting Genitourinary Symptoms: Denies: Urgency, Frequency Musculoskeletal Complaints: Denies: Joint Pain Neurological: Denies: Headache Skin: Denies: Lesions, Rash Misc: All systems neg except as marked - Vitals Vitals: Last Vital Signs Temp 35.9 C L 01/02/20 06:00 Pulse 139 H 01/02/20 06:00 Resp 20 01/02/20 06:00 BP 157/84 H 01/02/20 06:00 Pulse Ox 95 01/02/20 06:00 - Abnormal Lab Findings Abnormal Lab Findings: Abnormal Lab Results 01/01/20 01/01/20 01/01/20 Range/Units 12:25 12:25 12:25 WBC 11.0 H D (4.0-10.5) K/mm3 Hgb 12.4 L (12.5-16.0) gm/dL MCHC (32-36) g/dl RDW 20.2 H (11.5-14.0) % Plt Count (150-450) K/mm3 Immature Gran # (Auto) 0.04 H (0.000-0.0310) K/mm3 Neutrophils % 87.4 H (42-75.0) % Band Neuts % (Manual) (0-2.0) % Lymphocytes % 3.4 L (20-51) % Lymphocytes % (Manual) (20-51) % Immature Granulocytes (0-1) Neutrophils # 9.7 H (1.3-6.0) K/mm3 Neutrophils # (Manual) (1.3-6.0) K/mm3 Lymphocytes # 0.37 L (1.5-3.5) k/mm3 Monocytes # (Manual) (0.0-1.0) k/mm3 Basophils # (Manual) (0.0-0.1) k/mm3 Platelet Estimate (NORMAL) PT 12.0 H (9.1-10.7) Seconds INR (Anticoag Therapy) 1.22 H (0.92-1.08) INR D-Dimer (0.19-0.49) ug/mL Potassium (3.4-4.6) mmol/L Carbon Dioxide (24-32.6) mmol/L Anion Gap (6.8-13.8) mmol/L Est GFR (Non-Af Amer) 54 L (60-130) mL/min Random Glucose 113 H (70-110) mg/dL Calcium (7.9-10.9) mg/dL Total Bilirubin 3.3 H (0.0-1.1) mg/dL AST 106 H (0-48) U/L ALT 74 H (19-67) U/L Alkaline Phosphatase 1332 H (50-170) U/L Troponin I 0.341 H* (0.00-0.10) ng/mL Total Protein 4.7 L (6.2-8.2) gm/dL Albumin 1.8 L (3.4-5.0) gm/dl Amylase (25-115) U/L Gastric Occult Blood 01/01/20 01/02/20 01/02/20 Range/Units 12:25 04:20 04:45 WBC 18.8 H D (4.0-10.5) K/mm3 Hgb 11.9 L (12.5-16.0) gm/dL MCHC 30.5 L (32-36) g/dl RDW 20.7 H (11.5-14.0) % Plt Count 504 H (150-450) K/mm3 Immature Gran # (Auto) (0.000-0.0310) K/mm3 Neutrophils % (42-75.0) % Band Neuts % (Manual) 5 H (0-2.0) % Lymphocytes % (20-51) % Lymphocytes % (Manual) 11 L (20-51) % Immature Granulocytes 3 H (0-1) Neutrophils # (1.3-6.0) K/mm3 Neutrophils # (Manual) 13.9 H (1.3-6.0) K/mm3 Lymphocytes # (1.5-3.5) k/mm3 Monocytes # (Manual) 1.1 H (0.0-1.0) k/mm3 Basophils # (Manual) 0.2 H (0.0-0.1) k/mm3 Platelet Estimate Increased H (NORMAL) PT (9.1-10.7) Seconds INR (Anticoag Therapy) (0.92-1.08) INR D-Dimer 1.38 H (0.19-0.49) ug/mL Potassium (3.4-4.6) mmol/L Carbon Dioxide (24-32.6) mmol/L Anion Gap (6.8-13.8) mmol/L Est GFR (Non-Af Amer) (60-130) mL/min Random Glucose (70-110) mg/dL Calcium (7.9-10.9) mg/dL Total Bilirubin (0.0-1.1) mg/dL AST (0-48) U/L ALT (19-67) U/L Alkaline Phosphatase (50-170) U/L Troponin I (0.00-0.10) ng/mL Total Protein (6.2-8.2) gm/dL Albumin (3.4-5.0) gm/dl Amylase (25-115) U/L Gastric Occult Blood Positive H 01/02/20 Range/Units 04:45 WBC (4.0-10.5) K/mm3 Hgb (12.5-16.0) gm/dL MCHC (32-36) g/dl RDW (11.5-14.0) % Plt Count (150-450) K/mm3 Immature Gran # (Auto) (0.000-0.0310) K/mm3 Neutrophils % (42-75.0) % Band Neuts % (Manual) (0-2.0) % Lymphocytes % (20-51) % Lymphocytes % (Manual) (20-51) % Immature Granulocytes (0-1) Neutrophils # (1.3-6.0) K/mm3 Neutrophils # (Manual) (1.3-6.0) K/mm3 Lymphocytes # (1.5-3.5) k/mm3 Monocytes # (Manual) (0.0-1.0) k/mm3 Basophils # (Manual) (0.0-0.1) k/mm3 Platelet Estimate (NORMAL) PT (9.1-10.7) Seconds INR (Anticoag Therapy) (0.92-1.08) INR D-Dimer (0.19-0.49) ug/mL Potassium 5.5 H (3.4-4.6) mmol/L Carbon Dioxide 22.5 L (24-32.6) mmol/L Anion Gap 15.0 H (6.8-13.8) mmol/L Est GFR (Non-Af Amer) (60-130) mL/min Random Glucose 135 H (70-110) mg/dL Calcium 7.4 L (7.9-10.9) mg/dL Total Bilirubin 2.5 H (0.0-1.1) mg/dL AST 92 H (0-48) U/L ALT (19-67) U/L Alkaline Phosphatase 1110 H (50-170) U/L Troponin I (0.00-0.10) ng/mL Total Protein 3.9 L (6.2-8.2) gm/dL Albumin 1.7 L (3.4-5.0) gm/dl Amylase 20 L (25-115) U/L Gastric Occult Blood - Exam Constitutional: Present: Alert, Oriented x3, Cooperative, Elderly, Thin and frail Neck: Present: supple. Absent: lymphadenopathy (R), lymphadenopathy (L) Respiratory: Present: decreased breath sounds, No rales, No wheezing Cardiovascular/Chest: Present: regular rate, rhythm, no JVD, no murmur Abdomen: Present: Normal bowel sounds, soft, nontender, nondistended Extremity: Present: no pedal edema, no calf tenderness Assessment/Plan Plan Narrative: Adilia is awake alert oriented x3 this morning. She had several episodes of nausea and vomiting last night and had twitching and jerking movements which have resolved by this morning. Her white blood cell count is elevated this morning. Her chest x-ray showed no acute cardiopulmonary findings and her abdominal x-ray showed no intestinal obstruction. Her liver function test continued to be elevated. Amylase lipase was not elevated. Her nausea vomiting most likely due to her pancreatic mass. I am uncertain as to the etiology of her twitching and jerking movements. Her calcium is normal if adjusted for albumin. She does have hyperkalemia which is likely due to increased tissue catabolism from her malignancy and likely of pancreatic origin. I have talked to the 2 daughters yesterday about hospice and they had wanted to talk to case management before deciding so. She continues to have garbling of speech and has not had any Valium and therefore unlikely due to sedative effect. I will be talking to the daughters again today to see if they just want to make her comfort care for their mother. - Problems/Diagnosis (1) Pancreatic mass Problem: Chronic (2) TIA (transient ischemic attack) Problem: Acute (3) Seizure-like activity Problem: Acute (4) COPD (chronic obstructive pulmonary disease) Problem: Chronic Qualifiers: COPD type: emphysema Emphysema type: panlobular Qualified Code(s): J43.1 - Panlobular emphysema (5) Hypothyroidism Problem: Chronic Qualifiers: Hypothyroidism type: acquired Qualified Code(s): E03.9 - Hypothyroidism, unspecified (6) Hypertension Problem: Chronic Qualifiers: Hypertension type: essential hypertension Qualified Code(s): I10 - Essential (primary) hypertension (7) CKD (chronic kidney disease), stage III Problem: Chronic
[2020-01-02] MEDS: PANTOPRAZOLE SODIUM 40 MG in NORMAL SALINE 100 ML IV SCH (08:44)
[2020-01-02] MEDS ORDERED: SODIUM POLYSTYRENE SULFON/SORB 15 G/60 ML ORAL.SUSP RC ONE (10:19)
[2020-01-02] MEDS: MORPHINE SULFATE 10 MG/0.5 ML SYRINGE PO PRN (13:25)
[2020-01-02] MEDS ORDERED: DIAZEPAM 5 MG/ML SYRG IV PRN (15:00)
[2020-01-02] MEDS ORDERED: ENOXAPARIN SODIUM 40 MG/0.4 ML SYRG SC SCH (16:45)
[2020-01-02] MEDS ORDERED: NORMAL SALINE 250 ML IV ONE (22:53)
[2020-01-02] MEDS ORDERED: LORazepam 2 MG/ML DISP.SYRIN IV PRN (23:24)
[2020-01-02] MEDS ORDERED: SCOPOLAMINE HYDROBROMIDE 1.5 MG PATC TD SCH (23:30)
[2020-01-02] MEDS ORDERED: DEXTROSE 5%-0.5 NORMAL SALINE 1,000 ML IV PRN (23:59)
[2020-01-03] MEDS: MORPHINE SULFATE 10 MG/0.5 ML SYRINGE PO PRN ×3 (00:33→23:50)
[2020-01-03 00:54] VITALS: BP 111/47
[2020-01-03] MEDS: PANTOPRAZOLE SODIUM 40 MG in NORMAL SALINE 100 ML IV SCH (07:15)
--- NOTE | 2020-01-03 10:01 | PN ---
Subjective - Date and Time Seen Date: 01/03/20 Time: 09:56 Subjective Narrative: Patient had episode of low blood pressure last night which responded with IV bolus. It was noticed that she was leaking from a previous paracentesis site. Family was contacted and they decided to just make her comfort care. Objective - Review of Systems Generalized/Overall Review: Reports: Weakness. Denies: Chills, Fever EENTM: Denies: Blurred Vision Respiratory: Denies: Cough, Shortness of Breath Cardiac: Denies: Chest Pain, Edema, Palpitations Abdominal: Reports: Nausea, Vomiting, Abdominal Pain Genitourinary Symptoms: Denies: Urgency, Frequency Musculoskeletal Complaints: Denies: Joint Pain Neurological: Denies: Headache Skin: Denies: Lesions, Rash Misc: All systems neg except as marked - Vitals Vitals: Last Vital Signs Temp 36.7 C 01/02/20 22:30 Pulse 115 H 01/02/20 19:17 Resp 22 H 01/02/20 22:30 BP 111/47 01/02/20 22:30 Pulse Ox 93 01/02/20 23:30 - Exam Constitutional: Present: Alert - Awake alert oriented x2, Elderly, Thin and frail ENT Exam: Present: hearing grossly normal Neck: Present: supple. Absent: lymphadenopathy (R), lymphadenopathy (L) Respiratory: Present: decreased breath sounds, No rales, No wheezing Cardiovascular/Chest: Present: regular rate, rhythm, no JVD, no murmur Abdomen: Present: soft, tender, hypoactive Extremity: Present: no calf tenderness, pedal edema Assessment/Plan Plan Narrative: Adilia was admitted for seizure-like activity and likely CVA because of a new onset garbled speech. In the hospital she had been having nausea and vomiting, abddominal pain and low blood pressure. Discussion with the family was done about her pancreatic mass which likely is progressing. She is jaundiced. They have decided to make her comfort care and has talked with hospice today. She is now just on comfort care measures. - Problems/Diagnosis (1) Pancreatic mass Problem: Chronic (2) TIA (transient ischemic attack) Problem: Acute (3) Seizure-like activity Problem: Acute (4) COPD (chronic obstructive pulmonary disease) Problem: Chronic Qualifiers: COPD type: emphysema Emphysema type: panlobular Qualified Code(s): J43.1 - Panlobular emphysema (5) Hypothyroidism Problem: Chronic Qualifiers: Hypothyroidism type: acquired Qualified Code(s): E03.9 - Hypothyroidism, unspecified (6) Hypertension Problem: Chronic Qualifiers: Hypertension type: essential hypertension Qualified Code(s): I10 - Essential (primary) hypertension (7) CKD (chronic kidney disease), stage III Problem: Chronic
[2020-01-03] MEDS: ATROPINE SULFATE 50 DROP BTL SL PRN (23:59)
[2020-01-04] MEDS: MORPHINE SULFATE 10 MG/0.5 ML SYRINGE PO PRN ×4 (02:45→13:00)
[2020-01-04] MEDS: ATROPINE SULFATE 50 DROP BTL SL PRN (02:46)
--- NOTE | 2020-01-04 08:44 | DS ---
(1) Pancreatic mass Problem: Chronic (2) Seizure-like activity Problem: Acute (3) CVA (cerebral vascular accident) Problem: Suspected (4) COPD (chronic obstructive pulmonary disease) Problem: Chronic Qualifiers: COPD type: emphysema Emphysema type: panlobular Qualified Code(s): J43.1 - Panlobular emphysema (5) Hypothyroidism Problem: Chronic Qualifiers: Hypothyroidism type: acquired Qualified Code(s): E03.9 - Hypothyroidism, unspecified (6) Hypertension Problem: Chronic Qualifiers: Hypertension type: essential hypertension Qualified Code(s): I10 - Essential (primary) hypertension (7) CKD (chronic kidney disease), stage III Problem: Chronic (8) Severe protein-calorie malnutrition Problem: Acute Date of Discharge:: 01/04/20 Hospital Course: Lynn Romano is a 66-year-old white female patient of Dr. Campbell with past medical history of cerebrovascular accident with right kimberly-residual, pancreatic mass presumed to be pancreatic cancer, chronic renal failure stage III, malnutrition, hypothyroidism, hypertension, who was admitted on 01/01/2020 because of a seizure-like activity. The patient was just discharged from the hospital yesterday and was staying at her daughter's house. On the morning of admission the daughter gave her a protein rich drink and patient started choking. As per daughter she started having shaking and tremors of her whole body, unresponsive, with a blank stare and she called the EMS. By the time the EMS came in about 20 to 30 minutes the patient started waking up. She was given midazolam and while she was in route by EMS noted she had some focal twitching of her face. In the emergency room her head CT scan showed chronic remote left- sided infarcts. No acute intracranial pathology otherwise identified. Her chest x-ray showed no chronic findings with no acute cardiopulmonary disease. No aspiration. Her EKG showed sinus tachycardia with nonspecific ST-T wave changes as read by ED. Her troponin was slightly elevated at 0.3. White blood cell count was 11 with hemoglobin of 12.4, electrolytes within normal limits, GFR of 54. She got IV volume in the emergency room x1. The patient was then admitted for observation. In the floor. patient is awake alert oriented x2. She was garbling her speech which the daughter said she was not doing before this morning's episode. They wanted to do more work up to look into it. In the course of her howpital stay she had several episodes of nausea and vomiting , hypotension, leaking from her paracentesis site, short episides of seizures. . They then decided to make her comfort care . She is NPO as she keeps on getting nauseated and vomitung even with nectar thickened liquids. They did not want any diagnostic or therapeutic meausres to be done like MRI of the head. She is going home on Home hospice. Procedures Performed: none Results and Findings: Lab Pending Results 01/01/20 12:25: WBC 11.0 H D, RBC 4.35, Hgb 12.4 L, Hct 38.7, MCV 89.0, MCH 28.5, MCHC 32.0, RDW 20.2 H, Plt Count 340, MPV 10.2, Immature Gran % (Auto) 0.40, Immature Gran # (Auto) 0.04 H, Neutrophils % 87.4 H, Lymphocytes % 3.4 L, Monocytes % 8.4, Eosinophils % 0.2, Basophils % 0.2, Nucleated RBC % 0.0, Neutrophils # 9.7 H, Lymphocytes # 0.37 L, Monocytes # 0.9, Eosinophils # 0.0, Absolute Basophils 0.0 01/01/20 12:25: ESR 12 01/01/20 12:25: PT 12.0 H, INR (Anticoag Therapy) 1.22 H, PTT (Cass) 25.7 01/01/20 12:25: Sodium 133, Plasma Sodium 133, Potassium 4.6, Chloride 101, Carbon Dioxide 24.3, Anion Gap 12.3, BUN 14, Creatinine 1.08, Est GFR (Non-Af Amer) 54 L, BUN/Creatinine Ratio 13.0, Random Glucose 113 H, Calcium 8.0, Calcium Adj for Albumin 9.4, Total Bilirubin 3.3 H, AST 106 H, ALT 74 H, Alkaline Phosphatase 1332 H, Troponin I 0.341 H*, Total Protein 4.7 L, Albumin 1.8 L 01/01/20 12:25: D-Dimer 1.38 H 01/02/20 04:20: Gastric Occult Blood Positive H 01/02/20 04:45: WBC 18.8 H D, RBC 4.22, Hgb 11.9 L, Hct 39.0, MCV 92.4, MCH 28.2, MCHC 30.5 L, RDW 20.7 H, Plt Count 504 H, MPV 10.4, Neutrophils % (Manual) 74, Band Neuts % (Manual) 5 H, Lymphocytes % (Manual) 11 L, Monocytes % (Manual) 6, Basophils % (Manual) 1, Immature Granulocytes 3 H, Neutrophils # (Manual) 13.9 H, Lymphocytes # (Manual) 2.1, Monocytes # (Manual) 1.1 H, Basophils # (Manual) 0.2 H, Platelet Estimate Increased H, Poikilocytosis 1+, Target Cells Trace 01/02/20 04:45: Sodium 134, Plasma Sodium 135, Potassium 5.5 H, Chloride 102, Carbon Dioxide 22.5 L, Anion Gap 15.0 H, BUN 17, Creatinine 0.94, Est GFR (Non- Af Amer) 63, BUN/Creatinine Ratio 18.1, Random Glucose 135 H, Calcium 7.4 L, Calcium Adj for Albumin 8.9, Total Bilirubin 2.5 H, AST 92 H, ALT 59, Alkaline Phosphatase 1110 H, Total Protein 3.9 L, Albumin 1.7 L, Amylase 20 L, Lipase 84 Discharge Location: Home Disposition: Hospice Home Home Health Agency: [facility] Hospice Condition: Poor Discharge Activity: Other - bedrest Discharge Diet: NPO Referrals: Domo Graves MD [Primary Care Provider] - Additional Patient Instructions (free text): [facility] Hospice at home- please fax discharge summary, instructions, medications, and call report. Prescriptions (Any new or edited meds): Lorazepam [Ativan Intensol] 2 mg PO QID PRN 7 Days #1 oral.conc PRN Reason: Anxiety Transmission Status: Sent to [facility] Complete Home Medications List: Complete Home Medication List: levothyroxine 125 mcg tablet 125 mcg PO DAILY #30 tab 05/13/19 acetaminophen 500 mg tablet 500 mg PO TID PRN #0.1 tab 12/15/19 Ciprofloxacin HCl [Cipro] 500 mg PO BID #10 tab 12/31/19 Morphine Sulfate [Morphine Sulfate Conc. Oral Solution] 5 mg PO Q2H PRN #30 ml 12/31/19 Ondansetron [Zofran Odt] 8 mg PO QID PRN #120 tab.rapdis 12/31/19 Potassium Chloride [K-Dur] 20 meq PO BID #60 tablet.sa 12/31/19 chlorproMAZINE HCL [Thorazine] 5 mg PO TID #90 tab 12/31/19 Mirtazapine 7.5 mg PO HS 01/01/20 Lorazepam [Ativan Intensol] 2 mg PO QID PRN 7 Days #1 oral.conc 01/04/20
[2020-01-04] MEDS ORDERED: LORAZEPAM 2 MG/ML ORAL.CONC PO PRN (10:18)
== END 2020-01-04 13:24 | disposition hospice, home (50) ==
LOC: ER 11:10 → MS 11:10
PROVIDERS: ADMIT Internal Medicine; ATTEND Allergy & Immunology
DX: I12.9 Hypertensive chronic kidney disease with stage 1 through stage 4 chronic kidney disease, or unspecified chronic kidney disease; E43 Unspecified severe protein-calorie malnutrition; G40.509 Epileptic seizures related to external causes, not intractable, without status epilepticus; N18.3 Chronic kidney disease, stage 3 (moderate); Z68.20 Body mass index [BMI] 20.0-20.9, adult; C25.9 Malignant neoplasm of pancreas, unspecified; J43.1 Panlobular emphysema; I69.398 Other sequelae of cerebral infarction; I63.9 Cerebral infarction, unspecified; E03.9 Hypothyroidism, unspecified